=== PATIENT | female | born 1980 | race African-American/Black ===

== ENCOUNTER 2017-03-05 17:49 | Emergency (ER) | payer OTHER ==
[2017-03-05 18:00] VITALS: RESP 18
--- NOTE | 2017-03-05 18:42 | ED ---
Recheck HPI - General Chief Complaint: Recheck/Abnormal Lab/Rx Stated Complaint: Pain Time Seen by Provider: 03/05/17 18:23 Source: patient, RN notes reviewed Mode of arrival: ambulatory Limitations: no limitations - History of Present Illness Initial Comments: Patient is a 36-year-old female presents emergency room for evaluation of left- sided pain. Patient states on January 30 she woke up having pain on the left side of her neck and left side of her lower back radiating to her hip and left leg. Patient states that she tried to stay active and thought that would relieve her pain. Patient states over the past month she has been having worsening pain. Patient states coughing causes her to have pain. Patient states it causes her pain to get out of a chair or out of bed. Patient states the pain is worse with movement. Patient denies any recent falls or trauma. Patient denies recent changes in physical activity or heavy lifting. Patient denies taking any medications for her pain. Patient states she does not like taking any pills. Patient denies any numbness or tingling in her arms or legs. Patient denies weakness. Patient states pain feels like her left leg is in a vault that keeps tightening. Patient denies fecal or urinary incontinence. Patient denies saddle anesthesia. Patient denies trouble urinating, pain or burning during urination or blood in urine. Patient denies headache or dizziness. Patient states 4 out of 10 left-sided neck pain and 10 out of 10 left-sided low back and hip pain. - Related Data Previous Rx's Medication Instructions Recorded Naproxen [Naprosyn] 500 mg PO Q12HR PRN #20 tab 03/05/17 Allergies Allergy/AdvReac Type Severity Reaction Status Date / Time No Known Allergies Allergy Verified 03/05/17 18:20 Review of Systems ROS Statement: Those systems with pertinent positive or pertinent negative responses have been documented in the HPI. ROS Other: All systems not noted in ROS Statement are negative. Past Medical History Additional Past Medical History / Comment(s): anemia History of Any Multi-Drug Resistant Organisms: None Reported Past Surgical History: Section, Tubal Ligation Past Psychological History: No Psychological Hx Reported Smoking Status: Current every day smoker Past Alcohol Use History: Occasional Past Drug Use History: None Reported General Exam - General Exam Comments Initial Comments: Sitting in exam room, no distress. Limitations: no limitations General appearance: alert, in no apparent distress Head exam: Present: atraumatic, normocephalic, normal inspection Eye exam: Present: normal appearance ENT exam: Present: normal exam Neck exam: Present: normal inspection, full ROM. Absent: tenderness, lymphadenopathy Respiratory exam: Present: normal lung sounds bilaterally. Absent: respiratory distress Cardiovascular Exam: Present: regular rate, normal rhythm, normal heart sounds Back exam: Present: paraspinal tenderness, vertebral tenderness (Lumbosacral spine tenderness) Expanded Back exam: Positive Straight Leg Raise: Left, Negative Straight Leg Raising: Right Neurological exam: Present: alert, oriented X3, CN II-XII intact Psychiatric exam: Present: normal affect, normal mood Skin exam: Present: warm, dry, intact, normal color. Absent: rash Course Vital Signs 03/05/17 03/05/17 17:57 20:18 Temperature 98.4 F 97.5 F L Pulse Rate 89 80 Respiratory 18 18 Rate Blood Pressure 153/83 125/85 O2 Sat by Pulse 100 100 Oximetry Medical Decision Making - Medical Decision Making Patient is a 36-year-old female presents emergency room for evaluation of left- sided neck pain and low back pain. Patient did have a positive left straight leg raise on physical examination. X-ray showed no acute findings. Advised patient to follow-up with primary care provider for possible MRI to rule out disc herniation. Patient states she is not taking any pain medications at home. Will send patient home with Naprosyn. Patient has no neuro deficits. Patient states she understands everything that was discussed with her. Return parameters discussed. Case discussed with Dr. Kumar. - Radiology Data Radiology results: report reviewed, image reviewed Disposition Clinical Impression: Strain, lumbosacral, Back pain with left-sided radiculopathy, Strain of neck Disposition: HOME SELF-CARE Condition: Good Instructions: Lumbar Radiculopathy (ED), Acute Neck Pain (ED), Low Back Strain (ED) Additional Instructions: Alternate ice and heat. Take Naprosyn as directed. Please follow up with primary care provider for further evaluation. If any new symptom arises or symptoms worsen, return to ER as soon as possible. Prescriptions: Naproxen [Naprosyn] 500 mg PO Q12HR PRN #20 tab PRN Reason: Pain Referrals: Jordyn Wilde MD [REFERRING] - 1-2 days Time of Disposition: 20:04
--- NOTE | 2017-03-05 19:30 | XR ---
EXAMINATION TYPE: XR cervical spine comp DATE OF EXAM: 03/05/2017 7:04 PM COMPARISON: NONE HISTORY: Neck pain TECHNIQUE: 5 views FINDINGS: There is straightening of the vertebra. Neuroforamina are widely patent. There is anterior mild spurring at C5-6 C6-7. Atlantoaxial facet joint is normal. Posterior elements are intact. IMPRESSION: Mild spondylosis in the lower cervical spine. No fracture.
--- NOTE | 2017-03-05 19:31 | XR ---
EXAMINATION TYPE: XR lumbosacral spine min 4V DATE OF EXAM: 03/05/2017 7:04 PM COMPARISON: NONE HISTORY: Low back pain TECHNIQUE: 5 views FINDINGS: Lumbar vertebra have fairly normal spacing and alignment. Posterior elements are intact. Sa croiliac joints are normal. IMPRESSION: Negative lumbar spine exam.
[2017-03-05 20:21] VITALS: BP 125/85; PULSE 80; TEMP 97.5
== END 2017-03-05 20:19 | disposition home or self-care (01) ==
LOC: EC 17:49
DX: S16.1XXA Strain of muscle, fascia and tendon at neck level, initial encounter (principal); M54.16 Radiculopathy, lumbar region; M25.552 Pain in left hip; R05 Cough; F17.200 Nicotine dependence, unspecified, uncomplicated; X58.XXXA Exposure to other specified factors, initial encounter
CPT/HCPCS: 72050; 72110; 99283

== ENCOUNTER → 2017-03-26 | Outpatient (CLI) | payer OTHER ==
--- NOTE | 2017-03-26 17:58 | MR ---
EXAMINATION TYPE: MR lumbar spine wo con DATE OF EXAM: 03/26/2017 8:43 AM COMPARISON: NONE HISTORY: Back pain TECHNIQUE: T1 and T2 axial and sagittal images of the lumbar spine are submitted. FINDINGS: There is no abnormal signal seen within the visualized spinal cord or paraspinal soft tissu es. At L1-2 there is no disc herniation or canal stenosis. No foraminal encroachment. At L2-3 there is no disc herniation or canal stenosis. No foraminal encroachment At L3-4 there is there is left lateral disc bulging with mild left-sided foraminal encroachment. No c anal stenosis or spinal cord contact. At L4-5 there is no disc herniation or canal stenosis. There is mild right lateral disc bulging with mild right-sided foraminal encroachment. At L5-S1 there is no disc herniation or canal stenosis. No foraminal encroachment IMPRESSION: 1. Disc bulging L3-4 and L4-5 with no canal stenosis or discrete herniation. Foraminal encroachment a s discussed above. EXAMINATION TYPE: MR T-spine wo con DATE OF EXAM: 03/26/2017 8:43 AM COMPARISON: NONE HISTORY: Back pain Standard multiplanar, multisequence MRI departmental protocol Multiplanar, multisequence images of the thoracic spine were acquired. Diffusion weighted imaging was performed. FINDINGS: There is a 1 cm left thyroid nodule. Alignment is anatomic. Intervertebral disc space and signal maintained at all levels. There are no co mpression deformities. Neural foramina are patent at all levels. At T6-T7 there is minimal left paracentral disc bulging but no focal herniation, canal stenosis, fora nima encroachment or spinal cord contact. Spinal cord demonstrates a normal signal pattern with no abnormal signal. Many levels demonstrate no evidence of disc herniation, canal stenosis, or foraminal encroachment. IMPRESSION: 1. Very minimal left paracentral disc bulging T6-T7 with no evidence of canal stenosis or foraminal e ncroachment. 2. There is a 1 cm left thyroid nodule. 3. Incidental note is made of multilevel degenerative disc disease involving the mid and lower cervic al spine.
== END | disposition home or self-care (01) ==
LOC: RADMRIMAIN 07:44
PROVIDERS: ATTEND Nurse Practitioner Family
DX: M51.26 Other intervertebral disc displacement, lumbar region (principal); M51.24 Other intervertebral disc displacement, thoracic region
CPT/HCPCS: 72146; 72148

== ENCOUNTER → 2017-04-27 | Outpatient (CLI) | payer OTHER ==
[2017-04-27 13:53] VITALS: BP 137/81; PULSE 107; RESP 16; TEMP 98.5
--- NOTE | 2017-04-27 15:28 | P.CONS ---
History of Present Illness - Reason for Consult Consult date: 04/27/17 - History of Present Illness This is the initial consultation visit for this 36 years old female with history of severe low back pain with rotation to the left lower extremity started 01/30/2017 after she was moving furniture at her home, the pain is constant and increased with any activity associated with numbness and tingling sensation, and she feels that her left lower extremity weaker than the right side, she is able to walk, but any activity associated with increased pain, she denies any change in the bowel movement or urination she has no fever or night sweats . Intensity of the pain fluctuates between a 5/10 increased to 8 over 10 with activity Past Medical History Additional Past Medical History / Comment(s): anemia History of Any Multi-Drug Resistant Organisms: None Reported Past Surgical History: Section, Tubal Ligation Past Psychological History: No Psychological Hx Reported Smoking Status: Current every day smoker Past Alcohol Use History: Occasional Past Drug Use History: None Reported Medications and Allergies Home Medications Medication Instructions Recorded Confirmed Type Ferrous Sulfate [Feosol] 325 mg PO BID 04/27/17 04/27/17 History Gabapentin [Neurontin] 300 mg PO BID 04/27/17 04/27/17 History Meloxicam [Mobic] 1 tab PO DAILY 04/27/17 04/27/17 History traZODone HCL [TraZODone HCl] 1 tab PO DAILY 04/27/17 04/27/17 History Allergies Allergy/AdvReac Type Severity Reaction Status Date / Time No Known Allergies Allergy Verified 03/05/17 18:20 Physical Exam Vitals: Vital Signs Temp Pulse Resp BP Pulse Ox 04/27/17 13:40 98.5 F 107 H 16 137/81 97 Intake and Output 04/27/17 04/27/17 04/27/17 06:59 14:59 22:59 Other: Weight 83.915 kg Patient Weight 04/28/17 06:59 Weight 83.915 kg Social history : smoker ,+ ETOH , NO Illegal drugs use Review of Systems : 1- Constitutional : no chills , no fever , no night sweats , 2- Ears : no ear discharge , no change in hearing 3-Nose, Mouth ,Throat ; no bleeding gums, no sore throat , no epistaxis , 4-Cardiovascular : Denies chest pain, , no orthopnea , no palpitation 5-Respiratory : Denies cough , no dyspnea , no hemoptysis 6-Gastrointestinal :, no change in bowel habits , no coffee- ground emesis . 7-Genitourinary : No hematuria , no discharge , no incontinence, 8-Musculoskeletal : No gait dysfunction , report low back pain , 9- Neurological : no ataxia , no tremor , no sezure , 10-Psychatric , no suicidal ideation no hallucination 11- Endocrine : no cold intolerence , no polyuria , no polydypsia , 12-Hematologic : no easy bleeding , no easy brusing , 13-Allergic / immunology : no angioedema , no wheezing ,no allergic rhinitis 14-Integumentary : no brttle nails , no change hair / nails , no foot/leg ulcers . Physical Examinations : 1-Constitutional : Cooperative , not in acute distress . 2-HEENT : nech ; supple , no Lymphadenopathy , no Thyromegaly , :eyes , no icterus, no photophobia . ENT : , normal oropharynx , no Thrush 3- Respiratory : Chest clear to auscultations Bilaterally , no wheezing . 4- Cardiovascular : regular rate and rhythem , S1 , S2 , no S3 , no S4. 5- Gastrointestinal: abdomen soft no tenderness , no organomegally . 6- Genitourinary : Defferred . 7-Integumentary : No cellulitis , no ulcers , normal skin turgor , no cyanotic . 8- neurologic : Cranial nerve II to XII intact , no focal neurological deffecit 9-psychatric : alert , oriented X 3 , appropriate affect , intact judgment and insight . 10-Lymphatic : no Lymphadenopathy. 11- musculoskeltal: Antalgic gait Lumber spine moter stegnth lower extremities ,thigh and legs 5/5 Right side , 4/5 Left side deep tendon reflexes : normal Knee Jerk , normal ankle Jerk Negative lumber facet Loading Test Range of motion of the lumbar spine Flexion 30 degrees, extension 10 degrees strait leg raising test , positive at 30 degree left side , negative on the right side Fabere test negative RT and positive LT . Results Comments: MRI of the lumbar spine L3 4 and L4 5 bulging disc Assessment and Plan Plan: Assessment and plan=1 lumbar radiculopathy , lumbar bulging disc disease Patient could benefit from left-sided transforaminal epidural steroid injections at L3 4, and at left-sided L4 5 Also patient could benefit from Mobic 7.5 mg twice a day, and Neurontin 300 mg daily at bedtime increased gradually to twice a day Procedure risks and benefits and alternatives discussed with the patient and she agreed to proceed
== END | disposition home or self-care (01) ==
LOC: PNWHC3 13:08
PROVIDERS: ATTEND Specialist
DX: M51.16 Intervertebral disc disorders with radiculopathy, lumbar region (principal); Z79.899 Other long term (current) drug therapy; Z79.1 Long term (current) use of non-steroidal anti-inflammatories (NSAID)
CPT/HCPCS: 99211

== ENCOUNTER 2018-04-09 14:52 | Emergency (ER) | payer OTHER ==
[2018-04-09 15:30] VITALS: RESP 18
--- NOTE | 2018-04-09 16:32 | ED ---
General Adult HPI - General Chief complaint: Upper Respiratory Infection Stated complaint: Cough Time Seen by Provider: 04/09/18 16:18 Source: patient Mode of arrival: ambulatory Limitations: no limitations - History of Present Illness Initial comments: The patient is a 37-year-old female who presents with a chief complaint of cough and congestion. The patient is a pack per day smoker. He says that her cough has been going on for about a month. She cannot identify an inciting incident. There are no aggravating or alleviating factors. The patient does admit to shortness of breath and intermittent nausea. She denies chest pain. - Related Data Home Medications Medication Instructions Recorded Confirmed Ferrous Sulfate [Feosol] 325 mg PO BID 04/27/17 04/09/18 Bisacodyl [Dulcolax] 5 mg PO ONCE PRN 04/09/18 04/09/18 Multivitamins, Thera [Multivitamin 1 tab PO DAILY 04/09/18 04/09/18 (formulary)] Previous Rx's Medication Instructions Recorded Albuterol Inhaler [Ventolin Hfa 1 - 2 puff INHALATION RT-Q6H PRN 04/09/18 Inhaler] #1 inhaler Cetirizine HCl [Zyrtec] 10 mg PO DAILY #30 tab 04/09/18 Fluticasone Nasal [place] [Flonase 1 spray EA NOSTRIL DAILY #1 bottle 04/09/18 Nasal [place]] Allergies Allergy/AdvReac Type Severity Reaction Status Date / Time No Known Allergies Allergy Verified 04/09/18 16:35 Review of Systems ROS Statement: Those systems with pertinent positive or pertinent negative responses have been documented in the HPI. ROS Other: All systems not noted in ROS Statement are negative. ENT: Reports: congestion Respiratory: Reports: cough Past Medical History Past Medical History: No Reported History Additional Past Medical History / Comment(s): anemia History of Any Multi-Drug Resistant Organisms: None Reported Past Surgical History: Section, Tubal Ligation Additional Past Surgical History / Comment(s): uterine ablation Past Psychological History: No Psychological Hx Reported Smoking Status: Current every day smoker Past Alcohol Use History: Occasional Past Drug Use History: None Reported General Exam Limitations: no limitations General appearance: alert, in no apparent distress Head exam: Present: atraumatic, normocephalic Eye exam: Present: normal appearance ENT exam: Present: normal exam Neck exam: Present: normal inspection Respiratory exam: Present: normal lung sounds bilaterally. Absent: respiratory distress, wheezes Cardiovascular Exam: Present: regular rate, normal rhythm GI/Abdominal exam: Present: soft. Absent: distended, tenderness Rectal exam: Present: deferred Extremities exam: Present: normal inspection Back exam: Present: normal inspection Neurological exam: Present: alert, oriented X3 Psychiatric exam: Present: normal affect, normal mood Skin exam: Present: warm, dry, intact Course Vital Signs 04/09/18 15:28 Temperature 98.4 F Pulse Rate 95 Respiratory 18 Rate Blood Pressure 124/76 O2 Sat by Pulse 99 Oximetry Medical Decision Making - Medical Decision Making Patient is a 37-year-old female presents with a chief complaint of cough and congestion. On initial evaluation, vital signs are stable, patient is in no acute distress. Patient presents with erosive or family who have the same complaints. There is no fever present. This time given the duration and relatively benign nature of the presenting symptoms, I do not suspect infection but rather etiologies such as seasonal ALLERGIES. Given the patient is a smoker and is complaining of some nausea, she will be sent for a chest x-ray to rule out pneumonia. 5:10 PM X-ray evaluation is unremarkable. Patient stable for discharge. She was instructed to follow-up with primary care in 1-2 days, return to the emergency department if symptoms worsen or change. The patient was instructed to stop smoking. I counseled the patient about the harmful effects of smoking and secondhand smoke for her children. Disposition Clinical Impression: Sinusitis Disposition: HOME SELF-CARE Condition: Good Instructions: Sinusitis (ED), Allergies (ED) Prescriptions: Albuterol Inhaler [Ventolin Hfa Inhaler] 1 - 2 puff INHALATION RT-Q6H PRN #1 inhaler PRN Reason: Shortness Of Breath Cetirizine HCl [Zyrtec] 10 mg PO DAILY #30 tab Fluticasone Nasal [place] [Flonase Nasal [place]] 1 spray EA NOSTRIL DAILY #1 bottle Is patient prescribed a controlled substance at d/c from ED?: No Referrals: Suzanne Desouza MD [Primary Care Provider] - 1-2 days
--- NOTE | 2018-04-09 17:20 | XR ---
EXAMINATION TYPE: XR chest 2V DATE OF EXAM: 04/09/2018 COMPARISON: 10/26/2017 HISTORY: Cough and congestion TECHNIQUE: Frontal and lateral views of the chest are obtained. FINDINGS: Heart and mediastinum are normal. Lungs are clear. Diaphragm is normal. Bony thorax appear s normal. IMPRESSION: Normal chest. No change.
[2018-04-09 17:23] VITALS: BP 129/71; PULSE 81; TEMP 98
== END 2018-04-09 17:25 | disposition home or self-care (01) ==
LOC: EC 14:52
DX: J32.9 Chronic sinusitis, unspecified (principal); F17.200 Nicotine dependence, unspecified, uncomplicated; Z79.899 Other long term (current) drug therapy
CPT/HCPCS: 71046; 99283

== ENCOUNTER 2018-05-01 15:37 | Emergency (ER) | payer OTHER ==
[2018-05-01 16:14] VITALS: BP 122/74; TEMP 98.7
[2018-05-01] MEDS ORDERED: ALBUTEROL NEBULIZED 2.5 MG/3 ML INHALATION STA (16:45)
[2018-05-01] MEDS ORDERED: DEXAMETHASONE 4 MG TAB PO STA (16:45)
--- NOTE | 2018-05-01 17:09 | ED ---
General Adult HPI - General Chief complaint: Upper Respiratory Infection Stated complaint: headache/abd pain Source: patient Mode of arrival: ambulatory Limitations: no limitations - History of Present Illness Initial comments: History of present illness: 37-year-old [place] female with past medical history of chronic tobacco abuse presents with coughing 1 month. Patient denies any fever, chills or night sweats. She denies any chest pain symptoms. Patient states she's had these symptoms for approximately one month. Over the past 24 hours she reports worsening symptoms. Patient does report mild sputum production. She reports sore throat that is worsened with coughing. Denies any overt sick contacts. Patient denies any formal diagnosis of COPD. She has been a [id number] smoker. Past Medical History: Anemia Surgical History: , uterine ablation Social History: [id number] smoker, occasional EtOH Family history:[Reviewed, noncontributory] 14 point ROS was reviewed with patient and found to be negative - Related Data Home Medications Medication Instructions Recorded Confirmed Ferrous Sulfate [Feosol] 325 mg PO DAILY 04/27/17 05/01/18 Bisacodyl [Dulcolax] 5 mg PO ONCE PRN 04/09/18 05/01/18 Multivitamins, Thera [Multivitamin 1 tab PO DAILY 04/09/18 05/01/18 (formulary)] Cetirizine HCl [Zyrtec] 10 mg PO DAILY PRN 05/01/18 05/01/18 Ergocalciferol (Vitamin D2) 50,000 unit PO Q7D 05/01/18 05/01/18 [Vitamin D2] Fluticasone Nasal [place] [Flonase 1 spray EA NOSTRIL DAILY PRN 05/01/18 05/01/18 Nasal [place]] HYDROcodone/APAP 10-325MG [Purmela 1 tab PO QID PRN 05/01/18 05/01/18 10-325] Previous Rx's Medication Instructions Recorded Albuterol Inhaler [Ventolin Hfa 1 - 2 puff INHALATION RT-Q6H PRN 04/09/18 Inhaler] #1 inhaler Albuterol Inhaler [Ventolin Hfa 1 - 2 puff INHALATION RT-Q6H #1 05/01/18 Inhaler] inhaler Azithromycin [Zithromax Z-pack] 0 mg PO DIRECTED #6 tab 05/01/18 Dexamethasone [Decadron] 12 mg PO ONCE #2 tablet 05/01/18 Allergies Allergy/AdvReac Type Severity Reaction Status Date / Time No Known Allergies Allergy Verified 05/01/18 17:48 Review of Systems ROS Statement: Those systems with pertinent positive or pertinent negative responses have been documented in the HPI. ROS Other: All systems not noted in ROS Statement are negative. Past Medical History Past Medical History: No Reported History Additional Past Medical History / Comment(s): anemia History of Any Multi-Drug Resistant Organisms: None Reported Past Surgical History: Section, Tubal Ligation Additional Past Surgical History / Comment(s): uterine ablation Past Psychological History: No Psychological Hx Reported Smoking Status: Current every day smoker Past Alcohol Use History: Occasional Past Drug Use History: None Reported General Exam - General Exam Comments Initial Comments: Vital signs on arrival: Vital signs upon are within except limits Physical examination: General: Alert and oriented 4, no acute distress, coughing profusely HEENT: Normocephalic atraumatic, extraocular muscles intact, pupils equal round reactive to light and accommodation, oropharyngeal area does not show any tonsillar exudates or erythema Cardiovascular: Heart is regular rate and rhythm, no murmurs rubs or gallops Chest: Lungs clear to auscultation bilaterally, no tenderness to palpation of the chest wall Abdomen: Nontender, nondistended, normoactive bowel sounds Musculoskeletal: No peripheral edema, DP pulses and radial pulses 2+ bilaterally Neurologic: Cranial nerves II-12 intact, no focal neurologic deficits, no ataxia Skin: No rashes or lesions Limitations: no limitations Course Vital Signs 05/01/18 05/01/18 05/01/18 16:11 17:12 17:14 Temperature 98.7 F Pulse Rate 91 96 Respiratory 18 20 Rate Blood Pressure 122/74 O2 Sat by Pulse 99 Oximetry 05/01/18 05/01/18 17:35 17:50 Temperature Pulse Rate 100 100 Respiratory Rate Blood Pressure O2 Sat by Pulse Oximetry Medical Decision Making - Medical Decision Making ED course/medical decision-makin-year-old demented female presents with chief complaint of cough 1 month. Presentation consistent with bronchitis. Patient given corticosteroids, albuterol and Atrovent. 3 minutes of counseling for tobacco cessation was provided to patient. Patient reevaluated after breathing treatment and corticosteroids. She reports improvement of symptoms. Auscultation of the lungs shows no wheezing or any abnormal findings. Patient reports feeling much better. Clinically presentation consistent with chronic bronchitis. Patient given albuterol inhaler, Zithromax 5 day Dosepak and repeat corticosteroid be taken in 48-72 hours. Patient is understandable and agreeable. She is told to follow-up with her primary care physician upon discharge. Advised to return with any worsening symptoms. Final impression: 1. Bronchitis Plan: Albuterol inhaler, corticosteroids, Zithromax pack, follow up PCP Disposition: Discharged home Disposition Clinical Impression: Bronchitis Disposition: HOME SELF-CARE Additional Instructions: follow up PCP in 1 week. albuterol inhaler 1-2 puffs q4-6 hours for 3 days. repeat decadron in 48-72 hours. zithromax for 5 days Prescriptions: Albuterol Inhaler [Ventolin Hfa Inhaler] 1 - 2 puff INHALATION RT-Q6H #1 inhaler Azithromycin [Zithromax Z-pack] 0 mg PO DIRECTED #6 tab Dexamethasone [Decadron] 12 mg PO ONCE #2 tablet Is patient prescribed a controlled substance at d/c from ED?: No Referrals: Suzanne Desouza MD [Primary Care Provider] - 1-2 days Time of Disposition: 18:13
[2018-05-01 17:13] VITALS: RESP 20
--- NOTE | 2018-05-01 17:20 | XR ---
EXAMINATION TYPE: XR chest 2V DATE OF EXAM: 05/01/2018 COMPARISON: 04/09/2018 HISTORY: Cough and congestion TECHNIQUE: Frontal and lateral views of the chest are obtained. FINDINGS: Heart and mediastinum are normal. Lungs are clear. Diaphragm is normal. Bony thorax appear s normal. IMPRESSION: Normal chest. No change.
[2018-05-01 18:05] VITALS: PULSE 100
== END 2018-05-01 18:42 | disposition home or self-care (01) ==
LOC: EC 15:37
DX: J40 Bronchitis, not specified as acute or chronic (principal); D64.9 Anemia, unspecified; Z71.6 Tobacco abuse counseling; F17.210 Nicotine dependence, cigarettes, uncomplicated; Z79.899 Other long term (current) drug therapy
CPT/HCPCS: 99283; 99406; 94644; 71046; J8540

== ENCOUNTER → 2018-07-18 | Outpatient (CLI) | payer OTHER ==
--- NOTE | 2018-07-18 13:48 | MR ---
EXAMINATION TYPE: MR cervical spine wo con DATE OF EXAM: 07/18/2018 1:18 PM COMPARISON: NONE HISTORY: Neck pain Multiplanar MultiSpin echo imaging of the cervical spine was performed. C2-C3: No evidence for degenerative disc disease. No disc bulge/herniation or protrusion. No Canal stenosis. Foramina are patent bilaterally. C3-C4: No evidence for degenerative disc disease. No disc bulge/herniation or protrusion. No Canal stenosis. Foramina are patent bilaterally. C4-C5: There is mild disc desiccation. Posterocentral disc bulge without savannah herniation noted. Mini mal effacement ventral thecal sac. Foramina are patent bilaterally. C5-C6: There is mild disc desiccation. Posterocentral disc bulge without savannah herniation noted. Mini mal effacement ventral thecal sac. Foramina are patent bilaterally. C6-C7: There is mild disc desiccation. Posterocentral disc bulge without savannah herniation noted. Mini mal effacement ventral thecal sac. Foramina are patent bilaterally. C7-T1: No evidence for degenerative disc disease. No disc bulge/herniation or protrusion. No Canal stenosis. Foramina are patent bilaterally. Cervical segments are intact. There is normal alignment. Cervical spinal cord is of normal signal. Craniovertebral junction relationships are within normal limits. IMPRESSION: 1. Mild degenerative disc disease and disc bulging.
== END | disposition home or self-care (01) ==
LOC: RADMRIMAIN 12:11
DX: M50.121 Cervical disc disorder at C4-C5 level with radiculopathy (principal)
CPT/HCPCS: 72141

== ENCOUNTER 2019-07-20 04:06 | Emergency (ER) | payer OTHER ==
--- NOTE | 2019-07-20 04:54 | XR ---
EXAM: XR Left Toe(s), 2 or More Views CLINICAL HISTORY: ITS.REASON XR Reason: fall, pain TECHNIQUE: Frontal, lateral and oblique views of toe(s) of the left foot. COMPARISON: None. FINDINGS: Bones/joints: Intra-articular fracture of the base of the first distal phalanx. No dislocation. Soft tissues: Mild soft tissue swelling about the great toe. No radiopaque foreign body. IMPRESSION: Intra-articular fracture of the base of the first distal phalanx.
--- NOTE | 2019-07-20 05:12 | ED ---
Lower Extremity Injury HPI - General Chief Complaint: Extremity Injury, Lower Stated Complaint: Fall,toe injury Time Seen by Provider: 07/20/19 04:10 Source: patient, family Mode of arrival: wheelchair Limitations: no limitations - History of Present Illness Initial Comments: General he is a 38-year-old female presents the emergency department today for evaluation of left great toe pain. Patient reports that she was in her backyard when she tripped over the chain that they use to keep their dog restrained. Patient reports she immediately felt pain in her left toe she thought it would go away however has persisted which prompted her come to the ER for evaluation. Patient denies other injuries. - Related Data Home Medications Medication Instructions Recorded Confirmed Ferrous Sulfate [Feosol] 325 mg PO DAILY 04/27/17 05/01/18 Bisacodyl [Dulcolax] 5 mg PO ONCE PRN 04/09/18 05/01/18 Multivitamins, Thera [Multivitamin 1 tab PO DAILY 04/09/18 05/01/18 (formulary)] Cetirizine HCl [Zyrtec] 10 mg PO DAILY PRN 05/01/18 05/01/18 Ergocalciferol (Vitamin D2) 50,000 unit PO Q7D 05/01/18 05/01/18 [Vitamin D2] Fluticasone Nasal [place] [Flonase 1 spray EA NOSTRIL DAILY PRN 05/01/18 05/01/18 Nasal [place]] HYDROcodone/APAP 10-325MG [[place] 1 tab PO QID PRN 05/01/18 05/01/18 10-325] Previous Rx's Medication Instructions Recorded Albuterol Inhaler [Ventolin Hfa 1 - 2 puff INHALATION RT-Q6H PRN 04/09/18 Inhaler] #1 inhaler Albuterol Inhaler [Ventolin Hfa 1 - 2 puff INHALATION RT-Q6H #1 05/01/18 Inhaler] inhaler Azithromycin [Zithromax Z-pack] 0 mg PO DIRECTED #6 tab 05/01/18 Dexamethasone [Decadron] 12 mg PO ONCE #2 tablet 05/01/18 Allergies Allergy/AdvReac Type Severity Reaction Status Date / Time No Known Allergies Allergy Verified 07/20/19 04:16 Review of Systems ROS Statement: Those systems with pertinent positive or pertinent negative responses have been documented in the HPI. ROS Other: All systems not noted in ROS Statement are negative. Past Medical History Past Medical History: No Reported History Additional Past Medical History / Comment(s): anemia History of Any Multi-Drug Resistant Organisms: None Reported Past Surgical History: Section, Tubal Ligation Additional Past Surgical History / Comment(s): uterine ablation Past Psychological History: No Psychological Hx Reported Smoking Status: Current every day smoker Past Alcohol Use History: Occasional Past Drug Use History: None Reported General Exam - General Exam Comments Initial Comments: Physical Exam GENERAL: Patient is well-developed and well-nourished. Patient is nontoxic and well- hydrated and is in no distress. HENT: Normocephalic, Atraumatic. EYES: PERRL, EOMI PULMONARY: Unlabored respirations. CARDIOVASCULAR: RRR Warm well perfused extremities ABDOMEN: Nondistended SKIN: Skin is clear with no lesions or rashes and otherwise unremarkable. : Deferred NEUROLOGIC: Patient is alert and oriented x3. Moving all extremities spontaneously MUSCULOSKELETAL: Swelling and decreased range of motion of left great toe PSYCHIATRIC: Normal psychiatric evaluation. Limitations: no limitations Course Vital Signs 07/20/19 04:11 Temperature 97.8 F Pulse Rate 91 Respiratory 20 Rate Blood Pressure 109/69 O2 Sat by Pulse 100 Oximetry Medical Decision Making - Medical Decision Making The patient was seen and evaluated x-ray was obtained x-ray confirms an intra- articular fracture of the great toe patient will be placed in a walking boot and advised to follow-up with orthopedics for management Disposition Clinical Impression: Fracture of toe Disposition: HOME SELF-CARE Condition: Stable Instructions (If sedation given, give patient instructions): Toe Fracture (ED) Is patient prescribed a controlled substance at d/c from ED?: No Referrals: Suzanne Desouza MD [Primary Care Provider] - 1-2 days Mati Mendez MD [STAFF PHYSICIAN] - 1-2 days
[2019-07-20 05:53] VITALS: BP 110/78; PULSE 90; RESP 18; TEMP 97.4
== END 2019-07-20 05:53 | disposition home or self-care (01) ==
LOC: EC 04:06
DX: S92.422A Displaced fracture of distal phalanx of left great toe, initial encounter for closed fracture (principal); D64.9 Anemia, unspecified; F17.200 Nicotine dependence, unspecified, uncomplicated; Z79.899 Other long term (current) drug therapy; W01.0XXA Fall on same level from slipping, tripping and stumbling without subsequent striking against object, initial encounter; Y93.89 Activity, other specified; Y92.096 Garden or yard of other non-institutional residence as the place of occurrence of the external cause
CPT/HCPCS: 99283

== ENCOUNTER 2019-09-16 15:17 | Emergency (ER) | payer OTHER ==
[2019-09-16] MEDS ORDERED: DIAZEPAM 5 MG/ML 2 ML INJ IVP STA (15:47)
[2019-09-16] MEDS ORDERED: KETOROLAC 30 MG/ML 1 ML VIAL IVP STA (17:04)
[2019-09-16] MEDS ORDERED: LIDOCAINE 5% PATCH TOPICAL STA (17:04)
--- NOTE | 2019-09-16 17:14 | CT ---
EXAMINATION TYPE: CT lumbar spine wo con DATE OF EXAM: 09/16/2019 COMPARISON: None HISTORY: 38-year-old female with Back pain TECHNIQUE: Contiguous axial scanning of the lumbar spine without IV contrast. Coronal and sagittal re constructions performed. CT DLP: 1223 mGycm Automated exposure control for dose reduction was used. FINDINGS: Mildly displaced fracture of the right posterior 11th rib. Straightening of the normal lumbar lordosis. Mild bulging disks throughout. No large focal disc herni ation or evident canal compromise. No acute fracture of the lumbar spine. Vertebral body heights are preserved. No significant neural foraminal stenosis identified. No prevertebral paravertebral soft tissue abnormality. IMPRESSION: 1. MILDLY DISPLACED FRACTURE OF THE RIGHT POSTERIOR 11TH RIB INCIDENTALLY NOTED. 2. NO VERTEBRAL COMPRESSION COLLAPSE OR MALALIGNMENT WITHIN THE LUMBAR SPINE. 3. MILD BULGING DISKS AT MULTIPLE LEVELS WITHOUT LARGE FOCAL DISC HERNIATION OR CANAL COMPROMISE.
[2019-09-16] MEDS ORDERED: ACET/COD 300 MG/30 MG STARTER PACK 6 TAB BTL PO STA (18:52)
--- NOTE | 2019-09-16 18:52 | ED ---
Back Pain HPI - General Chief Complaint: Back Pain/Injury Stated Complaint: BACK PAIN Time Seen by Provider: 09/16/19 15:34 Source: patient, EMS Limitations: no limitations - History of Present Illness Initial Comments: Patient 38-year-old female with history of a herniated disc is presenting to emergency Department with a chief complaint of back pain. Patient reports a pain located in the lumbosacral region radiating along the posterior aspect of her right leg to the popliteal region. Patient also reports the pain has been on and off for about 4 days but today she coughed/sneezed and felt a pop in the right paraspinal region. Patient reports the pain is 10 / 10, throbbing and constant. Patient reports the pain is exacerbated with full deep breaths. Patient denies taking medications to alleviate the symptoms .patient denies saddle paresthesia, urinary bowel incontinence. - Related Data Home Medications Medication Instructions Recorded Confirmed Multivitamins, Thera [Multivitamin 1 tab PO DAILY 04/09/18 09/16/19 (formulary)] Cholecalciferol [Vitamin D3 (25 1,000 unit PO DAILY 09/16/19 09/16/19 Mcg = 1000 Iu)] Docusate [Colace] 100 mg PO DAILY 09/16/19 09/16/19 Loratadine 10 mg PO DAILY 09/16/19 09/16/19 Previous Rx's Medication Instructions Recorded Albuterol Inhaler [Ventolin Hfa 1 - 2 puff INHALATION RT-Q6H PRN 04/09/18 Inhaler] #1 inhaler Allergies Allergy/AdvReac Type Severity Reaction Status Date / Time No Known Allergies Allergy Verified 09/16/19 16:12 Review of Systems ROS Statement: Those systems with pertinent positive or pertinent negative responses have been documented in the HPI. ROS Other: All systems not noted in ROS Statement are negative. Past Medical History Past Medical History: No Reported History Additional Past Medical History / Comment(s): anemia, "bulging disc in lower back" History of Any Multi-Drug Resistant Organisms: None Reported Past Surgical History: Section, Tubal Ligation Additional Past Surgical History / Comment(s): uterine ablation Past Psychological History: No Psychological Hx Reported Smoking Status: Current every day smoker Past Alcohol Use History: Occasional Past Drug Use History: None Reported General Exam Limitations: no limitations General appearance: alert, in no apparent distress, in distress Head exam: Present: atraumatic, normocephalic, normal inspection Eye exam: Present: normal appearance Pupils: Present: normal accommodation ENT exam: Present: normal exam, mucous membranes moist, normal external ear exam Neck exam: Present: normal inspection, full ROM Respiratory exam: Present: normal lung sounds bilaterally Cardiovascular Exam: Present: regular rate, normal rhythm, normal heart sounds Extremities exam: Present: normal inspection, full ROM Back exam: Present: normal inspection, tenderness (Tenderness along the right paraspinal region), paraspinal tenderness, other (Positive leg raise test on the right leg.). Absent: full ROM, CVA tenderness (R), CVA tenderness (L), muscle spasm, vertebral tenderness Neurological exam: Present: alert, oriented X3 Psychiatric exam: Present: normal affect, normal mood Skin exam: Present: warm, intact, normal color Course Vital Signs 09/16/19 15:20 Temperature 98.3 F Pulse Rate 94 Respiratory 19 Rate Blood Pressure 140/79 O2 Sat by Pulse 99 Oximetry Medical Decision Making - Medical Decision Making Patient is a 38-year-old female with a history of a herniated disc is presenting to the emergency department with the chief complaint of back pain. Based on physical examination patient appears to have sciatica and low back symptoms. Patient was given 5 mg of IV morphine via EMS. Patient was given a Lidoderm patch in the right paraspinal region, Toradol and Valium. On reevaluation patient reports improvement in symptoms. Patient reports the pain continues to be exacerbated with full inspiration. CT of the lumbar region is indicative of a displaced 11th rib fracture. Patient advised to alternate between Tylenol and ibuprofen for pain control. Patient will be given an incentive spirometer. Patient will be given a Tylenol 3 starter pack. Patient advised about the possible side effects of medication. Strict return parameters were thoroughly discussed the patient is understanding and agreeable. Case discussed physician. Disposition Clinical Impression: Closed rib fracture Disposition: HOME SELF-CARE Condition: Stable Instructions (If sedation given, give patient instructions): Acute Low Back Pain (ED), Rib Fracture (ED) Additional Instructions: Please take prescribed medication as directed. Please follow up with primary care. Please return to emergency department if symptoms worsen. Is patient prescribed a controlled substance at d/c from ED?: No Referrals: Suzanne Desouza MD [Primary Care Provider] - 1-2 days Time of Disposition: 18:51
[2019-09-16 19:47] VITALS: BP 117/75; PULSE 87; RESP 18; TEMP 99.1
== END 2019-09-16 19:47 | disposition home or self-care (01) ==
LOC: EC 15:17
DX: S22.31XA Fracture of one rib, right side, initial encounter for closed fracture (principal); F17.200 Nicotine dependence, unspecified, uncomplicated; Z79.899 Other long term (current) drug therapy
CPT/HCPCS: 72131; 99284; 96374; 96375; J3360; J1885

== ENCOUNTER → 2019-10-30 | Outpatient (CLI) | payer OTHER ==
--- NOTE | 2019-10-31 00:32 | MR ---
EXAMINATION TYPE: MR brain wo con DATE OF EXAM: 10/30/2019 COMPARISON: None HISTORY: Dizziness, fall, seizure Ventricles have normal size. There is no mass effect nor midline shift. There is no sign of intracran ial hemorrhage. There is no evidence of cerebral edema. Diffusion images show no evidence of a cortical infarct. Corpus callosum appears normal. Sella turcic a appears normal. Brainstem is intact. There is mild ethmoid sinus mucosal thickening. The cerebellum appears normal. IMPRESSION: Negative MR scan of the brain. Minimal sinusitis.
== END | disposition home or self-care (01) ==
LOC: RADMRIMAIN 16:19
PROVIDERS: ATTEND Nurse Practitioner Family
DX: R29.898 Other symptoms and signs involving the musculoskeletal system (principal); Z87.898 Personal history of other specified conditions
CPT/HCPCS: 70551

== ENCOUNTER → 2020-01-23 | Outpatient (CLI) | payer OTHER ==
--- NOTE | 2020-01-23 11:17 | MR ---
EXAMINATION TYPE: MR cervical spine wo con DATE OF EXAM: 01/23/2020 COMPARISON: 06/21/2018 HISTORY: Cervical radiculopathy TECHNIQUE: Multiplanar, multisequence images of the cervical spine were acquired. C2-C3: No evidence for degenerative disc disease. No disc bulge/herniation or protrusion. No Canal st enosis. Foramina are patent bilaterally. C3-C4: No evidence for degenerative disc disease. No disc bulge/herniation or protrusion. No Canal st enosis. Foramina are patent bilaterally. C4-C5: There is mild disc desiccation. Posterocentral disc bulge without savannah herniation noted. [place] tear suggested. Minimal effacement ventral thecal sac. Foramina are patent bilaterally. There is uncovertebral joint hypertrophy. C5-C6: There is mild disc desiccation. Posterocentral disc bulge without savannah herniation noted. Mini mal effacement ventral thecal sac. Foramina are patent bilaterally. Posterior spondylosis and uncover tebral joint hypertrophy stable. C6-C7: There is mild disc desiccation. Posterocentral disc bulge without savannah herniation noted. Mini mal effacement ventral thecal sac. Foramina are patent bilaterally. Posterior spondylosis and uncover tebral joint hypertrophy is stable. C7-T1: No evidence for degenerative disc disease. No disc bulge/herniation or protrusion. No Canal st enosis. Foramina are patent bilaterally. Cervical segments are intact. There is normal alignment. Cervical spinal cord is of normal signal. Cr aniovertebral junction relationships are within normal limits. Multinodular left-sided thyroid change s noted. Sagittal view demonstrates changes sinusitis and sphenoid sinus posteriorly. IMPRESSION: 1. Multilevel moderate degenerative disc disease severe changes C6-C7 with discogenic marrow changes appear similar to the prior exam. 2. Broad-based central disc bulging or protrusion C4-5, C5-6 and C6-C7 hypertrophic changes of the un covertebral joints are stable compared to the prior exam. Mild effacement of thecal sac with no spina l cord contact. 3. There are multiple left-sided thyroid nodules. Correlate with ultrasound as clinically warranted.
--- NOTE | 2020-01-23 11:54 | MR ---
EXAMINATION TYPE: MR brain w con DATE OF EXAM: 01/23/2020 COMPARISON: None HISTORY: Unspecified convulsions seizures TECHNIQUE: Multiplanar, multisequence images of the brain and brainstem is performed without and with IV contras t, utilizing 8.5 mL intravenous Gadavist . FINDINGS: Diffusion weighted images demonstrate no evidence of a recent infarct or other diffusion ab normality. There is no extra-axial fluid collection or significant white matter signal abnormality. The ventricular system and cisternal spaces are normal in size and appearance. The brain volume is age appropriate. Midline structures demonstrate normal morphology. Cerebellar tonsils are slightly low-lying in positi on at the level of the foramen magnum. Post contrast images demonstrate no abnormal enhancement. The dural venous sinuses appear patent. Changes of chronic sinusitis and left mastoiditis.. IMPRESSION: 1. Changes of moderate chronic sinusitis and mild left mastoiditis 2. No enhancing mass or evidence of acute ischemia. 3. Cerebellar tonsils slightly low-lying in position at the level the foramen magnum.
== END | disposition home or self-care (01) ==
LOC: RADMRIMAIN 09:19
PROVIDERS: ATTEND Neurological Surgery
DX: R93.0 Abnormal findings on diagnostic imaging of skull and head, not elsewhere classified (principal); R56.9 Unspecified convulsions; M50.121 Cervical disc disorder at C4-C5 level with radiculopathy
CPT/HCPCS: 70552; 72141; A9585

== ENCOUNTER → 2020-04-28 | Outpatient (CLI) | payer OTHER ==
--- NOTE | 2020-04-29 08:23 | CT ---
EXAMINATION TYPE: CT abdomen pelvis wo/w con DATE OF EXAM: 04/28/2020 COMPARISON: NONE HISTORY: 39-year-old female generalized abdominal pain, nausea, constipation, bloating TECHNIQUE: Contiguous axial scanning of the abdomen and pelvis before and after administration of 100 ml Isovue 300 IV contrast. Delayed images through the kidneys and coronal/sagittal reconstructions performed. CT DLP: 2018 mGycm Automated exposure control for dose reduction was used. FINDINGS: LUNG BASES: No significant abnormality is appreciated. LIVER/GB: Liver enlarged measuring 19.4 cm. Diffuse low attenuation of the hepatic parenchyma. Large areas of geographic low attenuation suggestive anterior mid liver and joanna hepatis. Scattered subcen timeter hypodensities also present within the liver, for example, posterior right liver lobe axial im age 15 measuring 1 cm, too small for accurate CT characterization, probable cysts. Portal venous syst em is patent. No biliary ductal dilatation. PANCREAS: No significant abnormality is seen. SPLEEN: No significant abnormality is seen. ADRENALS: No significant abnormality is seen. KIDNEYS: No significant abnormality is seen. LYMPH NODES: No mesenteric or retroperitoneal lymphadenopathy. BOWEL: No dilated small bowel, free fluid, or free air. Small fatty milk or hernia. No significant s tool burden. Moderate circumferential wall thickening diffusely throughout the colon. Portions of the right hemicolon shows submucosal fat deposition suggesting bouts of prior inflammation. PELVIS: Uterus anteverted. 1.8 cm dominant follicle or functional cyst within the left ovary along wi th additional follicular change. Right ovary is visualized. No abnormal fluid collection in the pelvi s. Moderate circumferential bladder wall thickening. No pelvic lymphadenopathy. BONES: Mild degenerative spurring left SI joint. No osseous destructive process. IMPRESSION: 1. MODERATE CIRCUMFERENTIAL PANCOLONIC WALL THICKENING. CORRELATE FOR INFECTIOUS OR INFLAMMATORY COLI TIS INCLUDING THE POSSIBILITY OF ULCERATIVE COLITIS. 2. HEPATOMEGALY (19.4 CM) WITH MARKED HEPATIC STEATOSIS AND MORE SEVERE GEOGRAPHIC AREAS OF FATTY INF ILTRATION. 3. MODERATE CIRCUMFERENTIAL BLADDER WALL THICKENING. CORRELATE TO EXCLUDE CYSTITIS.
== END | disposition home or self-care (01) ==
LOC: RADCTMAIN 14:54
PROVIDERS: ATTEND Internal Medicine Gastroenterology
DX: K63.89 Other specified diseases of intestine (principal); K76.0 Fatty (change of) liver, not elsewhere classified; R16.0 Hepatomegaly, not elsewhere classified; N32.89 Other specified disorders of bladder
CPT/HCPCS: 74178; Q9967

== ENCOUNTER 2020-06-30 17:06 | Emergency (ER) | payer OTHER ==
[2020-06-30 17:12] VITALS: BP 131/86; PULSE 109; RESP 16; TEMP 98.8
[2020-06-30] MEDS ORDERED: cefTRIAXone 1,000 MG VIAL (IM USE) IM STA (17:49)
[2020-06-30] MEDS ORDERED: MORPHINE SULFATE 4 MG/ML SYRINGE IM STA (17:49)
--- NOTE | 2020-06-30 18:15 | ED ---
Lower Extremity Injury HPI - General Chief Complaint: Extremity Injury, Lower Stated Complaint: leg pain & boil Time Seen by Provider: 06/30/20 17:26 Source: patient, RN notes reviewed, old records reviewed Mode of arrival: wheelchair Limitations: no limitations - History of Present Illness Initial Comments: Laverne is a 39 year old female presents to ED for complaints of chronic bilateral leg pain for 3 months that is being evaluated by neurology and had recent EMG study on Sunday. She states that it feels like she is always walking on gravel on her feet and this hs been for 3 months. She states she does not take anything for pain currently. PAtient also complains of boil in her left inner thigh that has been present for 5 days and is now open and draining. She is non diabetic. She denies fevers. - Related Data Home Medications Medication Instructions Recorded Confirmed Multivitamins, Thera [Multivitamin 1 tab PO DAILY 04/09/18 09/16/19 (formulary)] Cholecalciferol [Vitamin D3 (25 1,000 unit PO DAILY 09/16/19 09/16/19 Mcg = 1000 Iu)] Docusate [Colace] 100 mg PO DAILY 09/16/19 09/16/19 Loratadine 10 mg PO DAILY 09/16/19 09/16/19 Previous Rx's Medication Instructions Recorded Albuterol Inhaler (Mhu) [Ventolin 1 - 2 puff INHALATION RT-Q6H PRN 04/09/18 Hfa Inhaler (Mhu)] #1 inhaler Acetaminophen-Codeine 300-30mg 1 tab PO Q4H PRN 3 Days #18 tablet 06/30/20 [Tylenol w/codeine #3] Sulfamethox-Tmp 800-160Mg [Bactrim 4 tab PO Q12HR #40 tab 06/30/20 DS 800-160 mg] Allergies Allergy/AdvReac Type Severity Reaction Status Date / Time No Known Allergies Allergy Verified 06/30/20 17:08 Review of Systems ROS Statement: Those systems with pertinent positive or pertinent negative responses have been documented in the HPI. ROS Other: All systems not noted in ROS Statement are negative. Past Medical History Past Medical History: No Reported History Additional Past Medical History / Comment(s): anemia, "bulging disc in lower back" History of Any Multi-Drug Resistant Organisms: None Reported Past Surgical History: Section, Tubal Ligation Additional Past Surgical History / Comment(s): uterine ablation Past Psychological History: No Psychological Hx Reported Smoking Status: Current every day smoker Past Alcohol Use History: Occasional Past Drug Use History: None Reported General Exam - General Exam Comments Initial Comments: 39 year old female, no acute distress. Limitations: no limitations General appearance: alert, in no apparent distress Head exam: Present: atraumatic, normocephalic, normal inspection Eye exam: Present: normal appearance, PERRL, EOMI. Absent: scleral icterus, conjunctival injection, periorbital swelling ENT exam: Present: normal exam, mucous membranes moist Neck exam: Present: normal inspection. Absent: tenderness, meningismus, lymphadenopathy Respiratory exam: Present: normal lung sounds bilaterally. Absent: respiratory distress, wheezes, rales, rhonchi, stridor Cardiovascular Exam: Present: regular rate, normal rhythm, normal heart sounds. Absent: systolic murmur, diastolic murmur, rubs, gallop, clicks GI/Abdominal exam: Present: soft, normal bowel sounds. Absent: distended, tenderness, guarding, rebound, rigid Extremities exam: Present: normal inspection, full ROM, normal capillary refill, other (normal dorsalis pedis and posterior tibial pulse, 2 plus. Normal ROM of ankles and toes. No deformity. ). Absent: tenderness, pedal edema, joint swelling, calf tenderness Back exam: Present: normal inspection Neurological exam: Present: alert (Pt has open and draining abscess from L groin andinguinal region with purulent drainage, area is open 1cm and surrounding firmness is 4cm. ), oriented X3, CN II-XII intact Psychiatric exam: Present: normal affect, normal mood Skin exam: Present: other Course Vital Signs 06/30/20 17:09 Temperature 98.8 F Pulse Rate 109 H Respiratory 16 Rate Blood Pressure 131/86 O2 Sat by Pulse 99 Oximetry Medical Decision Making - Medical Decision Making 39 year old female presents with L groin abscess for one week and chronic bilateral leg pain for 3 months. She is being evaluted by neurology for neuropathy and has normal pulses and no signs of ischemia on legs today. She has a draining 3cm abscess in L inguinal groin area, she has had these before. Since it is already open and has drainaed 5-10 cc of fluid, culture completed. Discussed needing to do baths and warm compresses. Will start pt on antibiotics and received rocephin and pain med IM before discharge. Discussed return parameters. Disposition Clinical Impression: Chronic leg pain, Abscess of left thigh Disposition: HOME SELF-CARE Condition: Good Instructions (If sedation given, give patient instructions): Peripheral Neuropathy (ED), Abscess (ED) Additional Instructions: Patient advised to apply warm compresses over the area of abscess. Allow the area to continue to drain and send a warm bathtub. The take the entire prescription of antibiotics. Follow-up with primary care doctor or return to emergency department if any alarming signs or symptoms occur. Prescriptions: Sulfamethox-Tmp 800-160Mg [Bactrim DS 800-160 mg] 4 tab PO Q12HR #40 tab Acetaminophen-Codeine 300-30mg [Tylenol w/codeine #3] 1 tab PO Q4H PRN 3 Days #18 tablet PRN Reason: Pain Is patient prescribed a controlled substance at d/c from ED?: Yes If prescribed controlled substance>3 days was MAPS reviewed?: Prescribed <3 Days If opioid is for acute pain is fill amount 7 days or less?: Yes If Rx opioid, was Start Talking consent form obtained?: Yes Referrals: Suzanne Desouza MD [Primary Care Provider] - 1-2 days Time of Disposition: 18:11
== END 2020-06-30 18:33 | disposition home or self-care (01) ==
LOC: EC 17:06
DX: L02.416 Cutaneous abscess of left lower limb (principal); G89.29 Other chronic pain; M79.605 Pain in left leg; M79.604 Pain in right leg; G62.9 Polyneuropathy, unspecified; F17.200 Nicotine dependence, unspecified, uncomplicated
CPT/HCPCS: 87070; 87205; 96372 ×2; 99284; J2270; J0696

== ENCOUNTER 2020-07-16 04:44 | Emergency (ER) | payer OTHER ==
--- NOTE | 2020-07-16 04:55 | ED ---
Recheck HPI - General Chief Complaint: Extremity Injury, Lower Stated Complaint: Leg numbness and pain Time Seen by Provider: 07/16/20 04:55 Source: patient, family, RN notes reviewed, old records reviewed Mode of arrival: ambulatory Limitations: no limitations - History of Present Illness MD Complaint: other (high BP) -: days(s) Returns Today for: other (anxiety and High BP) Symptoms Since Prior Visit: no new symptoms Associated Symptoms: none - Related Data Home Medications Medication Instructions Recorded Confirmed Multivitamins, Thera [Multivitamin 1 tab PO DAILY 04/09/18 09/16/19 (formulary)] Cholecalciferol [Vitamin D3 (25 1,000 unit PO DAILY 09/16/19 09/16/19 Mcg = 1000 Iu)] Docusate [Colace] 100 mg PO DAILY 09/16/19 09/16/19 Loratadine 10 mg PO DAILY 09/16/19 09/16/19 Previous Rx's Medication Instructions Recorded Albuterol Inhaler (Mhu) [Ventolin 1 - 2 puff INHALATION RT-Q6H PRN 04/09/18 Hfa Inhaler (Mhu)] #1 inhaler Acetaminophen-Codeine 300-30mg 1 tab PO Q4H PRN 3 Days #18 tablet 06/30/20 [Tylenol w/codeine #3] Sulfamethox-Tmp 800-160Mg [Bactrim 4 tab PO Q12HR #40 tab 06/30/20 DS 800-160 mg] Gabapentin [Neurontin] 300 mg PO TID #90 cap 07/16/20 Allergies Allergy/AdvReac Type Severity Reaction Status Date / Time No Known Allergies Allergy Verified 07/16/20 04:50 Review of Systems ROS Statement: Those systems with pertinent positive or pertinent negative responses have been documented in the HPI. ROS Other: All systems not noted in ROS Statement are negative. Past Medical History Past Medical History: No Reported History Additional Past Medical History / Comment(s): anemia, "bulging disc in lower back", neuropathy History of Any Multi-Drug Resistant Organisms: None Reported Past Surgical History: Section, Orthopedic Surgery, Tubal Ligation Additional Past Surgical History / Comment(s): uterine ablation Past Psychological History: Anxiety Smoking Status: Current every day smoker Past Alcohol Use History: Occasional Past Drug Use History: None Reported General Exam Limitations: no limitations General appearance: alert, in no apparent distress, anxious Head exam: Present: atraumatic, normocephalic, normal inspection Eye exam: Present: normal appearance, PERRL, EOMI. Absent: scleral icterus, conjunctival injection, periorbital swelling ENT exam: Present: normal exam, mucous membranes moist Neck exam: Present: normal inspection. Absent: tenderness, meningismus, lymphadenopathy Respiratory exam: Present: normal lung sounds bilaterally. Absent: respiratory distress, wheezes, rales, rhonchi, stridor Cardiovascular Exam: Present: normal rhythm, tachycardia, normal heart sounds. Absent: systolic murmur, diastolic murmur, rubs, gallop, clicks GI/Abdominal exam: Present: soft, normal bowel sounds. Absent: distended, tenderness, guarding, rebound, rigid Extremities exam: Present: normal inspection, full ROM, normal capillary refill. Absent: tenderness, pedal edema, joint swelling, calf tenderness Back exam: Present: normal inspection Neurological exam: Present: alert, oriented X3, CN II-XII intact Psychiatric exam: Present: normal affect, normal mood Skin exam: Present: warm, dry, intact, normal color. Absent: rash Course Vital Signs 07/16/20 04:45 Temperature 98.2 F Pulse Rate 112 H Respiratory 20 Rate Blood Pressure 114/72 O2 Sat by Pulse 100 Oximetry - Reevaluation(s) Reevaluation #1: 07/16/20 06:23 Medical records reviewed 07/16/20 06:[address] scans are reviewed Reevaluation #2: 07/16/20 06:23 Patient reevaluated with pain control Reevaluation #3: 07/16/20 06:23 Patient spoken with regarding findings, results and questions are answered Reevaluation #4: 07/16/20 06:23 Patient admits to severe back pain history of lumbar disc disease Medical Decision Making - Medical Decision Making 39 female with significant bilateral lower extremity paresthesias and neuropathy. Pain is controlled and patient can be discharged home Disposition Clinical Impression: Peripheral neuropathy, Chronic leg pain, Neuropathic pain, leg, bilateral Disposition: HOME SELF-CARE Condition: Good Instructions (If sedation given, give patient instructions): Peripheral Neuropathy (ED) Prescriptions: Gabapentin [Neurontin] 300 mg PO TID #90 cap Is patient prescribed a controlled substance at d/c from ED?: No Referrals: Suzanne Desouza MD [Primary Care Provider] - 1-2 days
[2020-07-16] MEDS ORDERED: dexAMETHasone 4 MG TAB PO STA (05:06)
[2020-07-16] MEDS ORDERED: Acetaminophen-Codeine 300-30mg TAB PO STA (05:06)
[2020-07-16] MEDS ORDERED: GABAPENTIN 300 MG CAP PO STA (05:06)
[2020-07-16] MEDS ORDERED: KETOROLAC 15 MG/ML 1 ML VIAL IM STA (05:06)
[2020-07-16] MEDS ORDERED: ACET/COD 300 MG/30 MG STARTER PACK 6 TAB BTL PO STA (05:06)
[2020-07-16] MEDS ORDERED: HYDROmorphone 1 MG/ML 1 ML SYRINGE IM STA (05:44)
[2020-07-16] MEDS ORDERED: LIDOCAINE 5% PATCH TOPICAL STA (06:02)
[2020-07-16 06:38] VITALS: BP 128/72; PULSE 96; RESP 18; TEMP 98.7
== END 2020-07-16 06:11 | disposition home or self-care (01) ==
LOC: EC 04:44
DX: G62.9 Polyneuropathy, unspecified (principal); G89.29 Other chronic pain; M79.606 Pain in leg, unspecified; G57.93 Unspecified mononeuropathy of bilateral lower limbs; F17.200 Nicotine dependence, unspecified, uncomplicated
CPT/HCPCS: 99284; 96372 ×2; J8540; J1170; J1885

== ENCOUNTER → 2021-02-14 | Outpatient (CLI) | payer OTHER ==
--- NOTE | 2021-02-14 23:01 | MR ---
EXAMINATION TYPE: MR shoulder RT wo con DATE OF EXAM: 02/14/2021 COMPARISON: Right shoulder x-ray November 03, 2020 HISTORY: RT shoulder pain and limited mobility for just over 2 years per patient. TECHNIQUE: Multiplanar, multisequence imaging of the right shoulder is performed without contrast. FINDINGS: Rotator Cuff: Increased signal distal supraspinatus and much lesser degree infraspinatus tendon anter ior superior fibers. In addition there is adjacent subdeltoid/subacromial bursal fluid. There is sign ificant focal tear at articular surface distal supraspinatus tendon measuring 6 mm transversely coron al image 15 and 12 mm AP diameter since sagittal image 5. Subscapularis tendon is intact. Rotator cuf f muscle bulk is preserved. Acromioclavicular Joint: Moderate narrowing at acromioclavicular joint with loss of the underlying fa t plane, this is best appreciated on sagittal image 17. Unremarkable distal acromion morphology. Glenohumeral Joint: Mild narrowing. No significant spurring. No significant effusion. Labrum: The labrum appears grossly intact given limitation of non-arthrogram study. Biceps Tendon: The long head of biceps is in normal location within bicipital groove. Bone marrow signal: Subchondral cystic change superior aspect humeral head. Other: No additional significant abnormality is appreciated. IMPRESSION: 1. Tendinosis distal supraspinatus tendon with significant articular surface tear. 2. Moderate acromioclavicular joint arthropathy with underlying impingement, correlate clinically.
== END | disposition home or self-care (01) ==
LOC: RADMRIMAIN 15:54
PROVIDERS: ATTEND Orthopaedic Surgery
DX: M67.813 Other specified disorders of tendon, right shoulder (principal); M24.111 Other articular cartilage disorders, right shoulder; M19.011 Primary osteoarthritis, right shoulder

== ENCOUNTER → 2021-02-23 | Outpatient (CLI) | payer OTHER ==
[2021-02-23 11:12] VITALS: BP 133/92; PULSE 111; RESP 18; TEMP 98.4
--- NOTE | 2021-02-23 13:48 | P.HPOB ---
History of Present Illness H&P Date: 02/23/21 Chief Complaint: The patient is here for her routine gynecologic exam. This is a 40-year-old (One stillbirth, One set of twins) with an LMP of November 2020. The patient is here to establish with this office. She is status post endometrial ablation in 2016 and has had infrequent light menstrual periods about 4 times a year since the ablation. She is status post tubal ligation. Her last pelvic examination was about 2 years ago. She is complaining of groin and labial boils which she has had for many years. Typically, in the past, she would get one at a time, but in the past year or 2 she has gotten up to 3 or 4 at one time. She states she has had several boils lanced in the past when they have gotten day and painful. About 1 year ago she states the doctor biopsied one on the left labia that was benign. She is otherwise without gynecologic complaints. Review of Systems She believes she has gained about 20 pounds over the past year and attributes this to her chronic pain which limits her ability to exercise. She denies re spiratory or cardiac problems. GI: She tends to feel nauseous in the morning. She also has been expressing some constipation. Past Medical History Past Medical History: Asthma, Musculoskeletal Disorder Additional Past Medical History / Comment(s): anemia, "bulging disc in lower back", neuropathy. Chronic neck and back problems. 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 One prior stillbirth and one set of twins. History of Any Multi-Drug Resistant Organisms: None Reported Past Surgical History: Section, Orthopedic Surgery, Tubal Ligation, Uterine Ablation Additional Past Surgical History / Comment(s): Endometrial ablation in 2017. section 2. Ankle surgery. Past Psychological History: Anxiety Smoking Status: Current every day smoker (Half pack per day) Past Alcohol Use History: Occasional (4 per week) Past Drug Use History: None Reported Additional History: She is single and has been with her boyfriend since 2016 and they live together. She is considered disabled. - Past Family History Mother Family Medical History: Hypertension Additional Family Medical History / Comment(s): Maternal uncle has hypertension and a maternal grandmother has diabetes. Maternal aunt had ovarian cancer in a maternal aunt also had breast cancer. Medications and Allergies Home Medications Medication Instructions Recorded Confirmed Type Albuterol Inhaler (Mhu) [Ventolin 1 - 2 puff INHALATION RT-Q6H PRN 04/09/18 02/23/21 Rx Hfa Inhaler (u)] #1 inhaler Multivitamins, Thera [Multivitamin 1 tab PO DAILY 04/09/18 02/23/21 History (formulary)] Cholecalciferol [Vitamin D3 (25 1,000 unit PO DAILY 09/16/19 02/23/21 History Mcg = 1000 Iu)] Docusate [Colace] 100 mg PO DAILY 09/16/19 02/23/21 History Cyanocobalamin (Vitamin B-12) 1,000 mcg PO DAILY 02/23/21 02/23/21 History [Vitamin B-12] Folic Acid 1 mg PO DAILY 02/23/21 02/23/21 History HYDROcodone/APAP 7.5-325MG [[place] 1 tab PO Q6HR PRN 02/23/21 02/23/21 History 7.5-325] Pregabalin [Lyrica] 100 mg PO BID 02/23/21 02/23/21 History Allergies Allergy/AdvReac Type Severity Reaction Status Date / Time No Known Allergies Allergy Verified 02/23/21 11:01 Exam Vital Signs Temp Pulse Resp BP Pulse Ox 02/23/21 11:05 98.4 F 111 H 18 133/92 96 Intake and Output 02/22/21 02/23/21 02/23/21 22:59 06:59 14:59 Other: Weight 82.554 kg Height 5 feet 6 inches, weight 182 pounds, BMI 29.4. This is a well-developed well-nourished black female who is alert and oriented times 3 in no acute distress. She has a very slow gait which she relates to her chronic back pain and problems. HEENT: Within normal limits. NECK: Supple without mass or thyromegaly. CHEST AND LUNGS: Clear to auscultation. HEART: Regular rate and rhythm. BREASTS: Are without mass or discharge. AXILLARY EXAM: Negative for adenopathy. BACK: There is generalized back and spine tenderness related to her chronic back pain. ABDOMEN: Soft, nontender, without palpable masses. PELVIC EXAM: External genitalia reveals various scarred areas with prior drainage of boils. There is a 1.2 x 1.0 cm hardened inclusion cyst on the inner side of the left labia majora that has the Center removed consistent with a previous biopsy which she states she had done about 1 year ago. This has a benign appearance. Cervix and vagina appear normal. There is no unusual discharge. There is no evidence of prolapse. The uterus is midposition, nongravid size and nontender. There are no palpable adnexal masses or tenderness. RECTAL EXAM: negative for mass or tenderness and is negative for occult blood. EXTREMITIES: Nontender. IMPRESSION: 1. 40-year-old premenopausal female with oligomenorrhea following endometrial ablation for hypermenorrhea who is status post tubal ligation. 2. Long history of groin and labial boils which may have been inclusion cyst or ingrown hairs. Currently there are no suspicious lesions. Currently there is no signs of active infection or acute genital problems. PLAN: 1. Pap smear cotest was performed. 2. Self breast awareness was discussed with the patient. 3. Screening mammogram is scheduled next month and the order slip was given to the patient for this. 4. We have had a long discussion regarding her recurrent vulvar and groin boils. There are no acute changes that require immediate intervention. I have recommended that she avoid close shaving in this area has she has already noted that close shaving makes her condition worse. This may be because it creates ingrown hair follicles that become inflamed. When she feels a boil is developing, I have recommended using warm compresses with pressure and I have also recommended that she use clindamycin pledgets twice a day to help prevent infections which may have created them to become large and painful in the past. The electronic prescription for the clindamycin pledgets will be sent to [facility]. 5. She was advised to return in one year for her annual well woman exam and as needed.
== END ==
LOC: WWCWWP 10:52
PROVIDERS: ATTEND Obstetrics & Gynecology
DX: N91.5 Oligomenorrhea, unspecified (principal); J45.909 Unspecified asthma, uncomplicated; F41.9 Anxiety disorder, unspecified; F17.210 Nicotine dependence, cigarettes, uncomplicated; Z98.51 Tubal ligation status; Z87.2 Personal history of diseases of the skin and subcutaneous tissue; Z79.899 Other long term (current) drug therapy

== ENCOUNTER → 2021-04-12 | Outpatient (CLI) | payer OTHER ==
--- NOTE | 2021-04-15 09:10 | MM ---
Reason for exam: screening (asymptomatic). Physical Findings: A clinical breast exam by your physician is recommended on an annual basis and results should be correlated with mammographic findings. MG Screening Mammo w CAD Bilateral CC and MLO view(s) were taken. The breast tissue is heterogeneously dense. This may lower the sensitivity of mammography. There is no discrete abnormality. No significant changes when compared with prior studies. ASSESSMENT: Negative, BI-RAD 1 RECOMMENDATION: Routine screening mammogram of both breasts in 1 year.
== END | disposition home or self-care (01) ==
LOC: RADMAMWWP 09:27
PROVIDERS: ATTEND Obstetrics & Gynecology
DX: Z12.31 Encounter for screening mammogram for malignant neoplasm of breast (principal)
CPT/HCPCS: 77067

== ENCOUNTER 2022-04-19 08:44 | Day surgery (SDC) | payer OTHER ==
[2022-04-14 10:29] VITALS: BMI 29.7
[~2022-04-19 08:44] MED LIST: LACTATED RINGERS 1,000 ML IV SCH; LIDOCAINE 1% (10MG/ML) FOR IV START INTRADERMA PRN
[2022-04-19 09:21] VITALS: RESP 16; TEMP 97.2
[2022-04-19] MEDS ORDERED: PROPOFOL 10 MG/ML 20 ML VIAL IV ONE (09:54)
--- NOTE | 2022-04-19 09:59 | P.GSHP ---
History of Present Illness H&P Date: 04/19/22 CHIEF COMPLAINT: Change in bowel habits HISTORY OF PRESENT ILLNESS: The patient is a 41-year-old female who presents for change in bowel habits. Lower endoscopy was offered for further evaluation and management. PAST MEDICAL HISTORY: Please see list. PAST SURGICAL HISTORY: Please see list. MEDICATIONS: Please see list. ALLERGIES: Please see list. SOCIAL HISTORY: No illicit drug use FAMILY HISTORY: No reports of Crohn disease or ulcerative colitis. REVIEW OF ORGAN SYSTEMS: CONSTITUTIONAL: No reports of fevers or chills. PHYSICAL EXAM: VITAL SIGNS: Stable GENERAL: Well-developed pleasant in no acute distress. HEENT: No scleral icterus. Extraocular movements grossly intact. Moist buccal mucosa. NECK: Supple without lymphadenopathy. CHEST: Unlabored respirations. Equal bilateral excursions. CARDIOVASCULAR: Regular rate and rhythm. Distal 2+ pulses. ABDOMEN: Soft, nontender, nondistended. MUSCULOSKELETAL: No clubbing, cyanosis, or edema. ASSESSMENT: 1. Change in bowel habits PLAN: 1. Recommend proceeding with a lower endoscopy Past Medical History Past Medical History: Asthma, Musculoskeletal Disorder Additional Past Medical History / Comment(s): anemia, "bulging disc in lower back", neuropathy. Chronic neck and back problems. ABD PAIN, BLOATING, CONSTIPATION History of Any Multi-Drug Resistant Organisms: None Reported Past Surgical History: Section, Orthopedic Surgery, Tubal Ligation, Uterine Ablation Additional Past Surgical History / Comment(s): Endometrial ablation in 2017. section 2. RT Ankle surgery. Past Anesthesia/Blood Transfusion Reactions: No Reported Reaction Smoking Status: Current every day smoker - Past Family History Mother Family Medical History: Hypertension Additional Family Medical History / Comment(s): Maternal uncle has hypertension and a maternal grandmother has diabetes. Maternal aunt had ovarian cancer in a maternal aunt also had breast cancer. Medications and Allergies Home Medications Medication Instructions Recorded Confirmed Type Albuterol Inhaler (Mhu) [Ventolin 1 - 2 puff INHALATION RT-Q6H PRN 04/09/18 04/14/22 Rx Hfa Inhaler (Mhu)] #1 inhaler Multivitamins, Thera [Multivitamin 1 tab PO DAILY 04/09/18 04/14/22 History (formulary)] Cholecalciferol [Vitamin D3 (25 1,000 unit PO DAILY 09/16/19 04/14/22 History Mcg = 1000 Iu)] Docusate [Colace] 100 mg PO DAILY 09/16/19 04/14/22 History Cyanocobalamin (Vitamin B-12) 1,000 mcg PO DAILY 02/23/21 04/14/22 History [Vitamin B-12] Folic Acid 1 mg PO DAILY 02/23/21 04/14/22 History HYDROcodone/APAP 7.5-325MG [[place] 1 tab PO Q6HR PRN 02/23/21 04/14/22 History 7.5-325] Pregabalin [Lyrica] 100 mg PO BID 02/23/21 04/14/22 History Allergies Allergy/AdvReac Type Severity Reaction Status Date / Time No Known Allergies Allergy Verified 04/19/22 09:06 Surgical - Exam Vital Signs Temp Pulse Resp BP Pulse Ox 97.2 F L 93 16 141/90 97 04/19/22 09:14 04/19/22 09:14 04/19/22 09:14 04/19/22 09:14 04/19/22 09:14
--- NOTE | 2022-04-19 10:13 | P.PCN ---
Date of Procedure: 04/19/22 Description of Procedure: PREOPERATIVE DIAGNOSIS: Change in bowel habit POSTOPERATIVE DIAGNOSIS: Ascending colitis Rectal polyp Transverse colon polyp Sigmoid diverticulosis OPERATION: Colonoscopy to the ileocecal valve and appendiceal orifice, cecum Colonoscopy with cold forceps biopsy SURGEON: Elaine Valencia MD. ANESTHESIA: MAC. INDICATIONS: The patient is an 41-year-old female who presents with change in bowel habits including abdominal pain. Benefits and risks were described and informed consent was obtained. DESCRIPTION OF PROCEDURE: The patient had undergone Sutab prep. The patient had been brought into the operating room and laid in the left lateral decubitus position. After adequate intravenous sedation, the rectum was examined with 2% lidocaine jelly. No external hemorrhoids were encountered. The rectal tone was within normal limits. No lesions were palpated in the rectal vault. An Olympus colonoscope was advanced until the cecum, ileocecal valve and appendiceal orifice were clearly viewed. The prep was excellent. Sigmoid diverticulosis was encountered. Colonic polyps were found and removed. Cold biopsies were taken of the ascending colon. Retroflexion of the scope demonstrated grade 1 internal hemorrhoids without active bleeding or inflammation. The colon was desufflated. The patient had tolerated the procedure well. Withdrawal time was over 6 minutes. FINDINGS: Aronchick preparation quality scale 1 (1-5) Internal hemorrhoids, grade 1 No external hemorrhoids Arteriovenous malformations, 3 mm hepatic flexure Sigmoid diverticulosis Removal of 2 polyps: - Cold forceps biopsy at 5 cm from the anal verge, 3 mm polyp, rectum - Cold forceps biopsy at mid transverse colon, 5 mm polyp. Ascending colon colitis with biopsies obtained cold forceps RECOMMENDATIONS: Repeat colonoscopy in 3 years, 2024 Plan - Discharge Summary Discharge Rx Participant: No New Discharge Prescriptions: Continue Multivitamins, Thera [Multivitamin (formulary)] 1 tab PO DAILY Albuterol Inhaler (Mhu) [Ventolin Hfa Inhaler (Mhu)] 1 - 2 puff INHALATION RT-Q6H PRN #1 inhaler PRN Reason: Shortness Of Breath Docusate [Colace] 100 mg PO DAILY Cholecalciferol [Vitamin D3 (25 Mcg = 1000 Iu)] 1,000 unit PO DAILY Cyanocobalamin (Vitamin B-12) [Vitamin B-12] 1,000 mcg PO DAILY Pregabalin [Lyrica] 100 mg PO BID Folic Acid 1 mg PO DAILY HYDROcodone/APAP 7.5-325MG [[place] 7.5-325] 1 tab PO Q6HR PRN PRN Reason: Pain Discharge Medication List Albuterol Inhaler (Mhu) [Ventolin Hfa Inhaler (Mhu)] 1 - 2 puff INHALATION RT- Q6H PRN #1 inhaler 04/09/18 [Rx] Multivitamins, Thera [Multivitamin (formulary)] 1 tab PO DAILY 04/09/18 [History] Cholecalciferol [Vitamin D3 (25 Mcg = 1000 Iu)] 1,000 unit PO DAILY 09/16/19 [History] Docusate [Colace] 100 mg PO DAILY 09/16/19 [History] Cyanocobalamin (Vitamin B-12) [Vitamin B-12] 1,000 mcg PO DAILY 02/23/21 [History] Folic Acid 1 mg PO DAILY 02/23/21 [History] HYDROcodone/APAP 7.5-325MG [[place] 7.5-325] 1 tab PO Q6HR PRN 02/23/21 [History] Pregabalin [Lyrica] 100 mg PO BID 02/23/21 [History] Follow up Appointment(s)/Referral(s): Elaine Valencia MD [STAFF PHYSICIAN] - 05/09/22 Patient Instructions/Handouts: Microscopic Colitis (DC), Colorectal Polyps (GEN), Diverticulosis Diet (GEN), Diverticulosis (GEN) Activity/Diet/Wound Care/Special Instructions: Repeat colonoscopy in 3 years, 2024 Discharge Disposition: HOME SELF-CARE
[2022-04-19 10:52] VITALS: BP 130/80; PULSE 87
== END 2022-04-19 11:16 | disposition home or self-care (01) ==
LOC: ORWHC2ENDO 08:44
PROVIDERS: ATTEND Surgery Plastic and Reconstructive Surgery
DX: D12.3 Benign neoplasm of transverse colon (principal); K63.5 Polyp of colon; J45.909 Unspecified asthma, uncomplicated; M51.26 Other intervertebral disc displacement, lumbar region; G62.9 Polyneuropathy, unspecified; Z98.891 History of uterine scar from previous surgery; Z98.51 Tubal ligation status; Z98.890 Other specified postprocedural states; F17.200 Nicotine dependence, unspecified, uncomplicated; Z82.49 Family history of ischemic heart disease and other diseases of the circulatory system; Z83.3 Family history of diabetes mellitus; Z80.3 Family history of malignant neoplasm of breast; Z80.41 Family history of malignant neoplasm of ovary; Z79.899 Other long term (current) drug therapy
CPT/HCPCS: 81025; 88305; 45380; J2704

== ENCOUNTER → 2022-04-26 | Outpatient (CLI) | payer OTHER ==
--- NOTE | 2022-04-26 08:52 | MM ---
Reason for Exam: Clinical finding. Last mammogram was performed 1 year(s) and 1 month(s) ago. Patient History: Menarche at age 8. First Full-Term at age 21. Maternal aunt had breast cancer under age 50. Maternal aunt had breast cancer at or over age 50. Maternal aunt had breast cancer. Last menstrual period: 11/19/2019 Risk Values: Trinity 5 year model risk: 0.6%. NCI Lifetime model risk: 9.8%. Prior Study Comparison: 04/12/2021 Bilateral Screening Mammogram, [facility]. Tissue Density: The breast tissue is heterogeneously dense. This may lower the sensitivity of mammography. Findings: Analyzed By CAD. No evidence for suspicious mass lesion or suspicious clustered microcalcifications. No skin thickening or distortion. Overall Assessment: Negative, BI-RAD 1 Management: Screening Mammogram of both breasts in 1 year. A clinical breast exam by your physician is recommended on an annual basis and results should be correlated with mammographic findings. This exam should not preclude additional follow-up of suspicious palpable abnormalities. Results were given to the patient verbally at the time of exam. Electronically signed and approved by: Loco Diego M.D. Radiologis
== END | disposition home or self-care (01) ==
LOC: RADMAMWWP 08:16
PROVIDERS: ATTEND Family Medicine
DX: R92.8 Other abnormal and inconclusive findings on diagnostic imaging of breast (principal); Z80.3 Family history of malignant neoplasm of breast
CPT/HCPCS: 77066

== ENCOUNTER 2022-05-25 07:58 | Day surgery (SDC) | payer OTHER ==
[2022-05-19 12:52] VITALS: BMI 29.7
--- NOTE | 2022-05-25 07:36 | P.GSHP ---
History of Present Illness H&P Date: 05/25/22 CHIEF COMPLAINT: GERD HISTORY OF PRESENT ILLNESS: The patient is a 41-year-old female who presents reports gastroesophageal reflux disease. Upper endoscopy was offered for further evaluation and management. PAST MEDICAL HISTORY: Please see list. PAST SURGICAL HISTORY: Please see list. MEDICATIONS: Please see list. ALLERGIES: Please see list. SOCIAL HISTORY: No illicit drug use FAMILY HISTORY: No reports of Crohn disease or ulcerative colitis. REVIEW OF ORGAN SYSTEMS: CONSTITUTIONAL: No reports of fevers or chills. GI: Denies any blood in stools or constipation. PHYSICAL EXAM: VITAL SIGNS: Stable GENERAL: Well-developed and pleasant in no acute distress. HEENT: No scleral icterus. Extraocular movements grossly intact. Moist buccal mucosa. NECK: Supple without lymphadenopathy. CHEST: Unlabored respirations. Equal bilateral excursions. CARDIOVASCULAR: Regular rate and rhythm. Distal 2+ pulses. ABDOMEN: Soft, nondistended. MUSCULOSKELETAL: No clubbing, cyanosis, or edema. ASSESSMENT: 1. Gastroesophageal reflux disease PLAN: 1. Recommend proceeding with an upper endoscopy Past Medical History Past Medical History: Asthma, Musculoskeletal Disorder Additional Past Medical History / Comment(s): anemia, "bulging disc in lower back", neuropathy. Chronic neck and back problems. ABD PAIN, BLOATING, CONSTIPATION History of Any Multi-Drug Resistant Organisms: None Reported Past Surgical History: Section, Orthopedic Surgery, Tubal Ligation, Uterine Ablation Additional Past Surgical History / Comment(s): Endometrial ablation in 2017. section 2. RT Ankle surgery. COLONOSCOPY 04/19/22 Past Anesthesia/Blood Transfusion Reactions: No Reported Reaction Smoking Status: Current every day smoker - Past Family History Mother Family Medical History: Hypertension Additional Family Medical History / Comment(s): Maternal uncle has hypertension and a maternal grandmother has diabetes. Maternal aunt had ovarian cancer in a maternal aunt also had breast cancer. Medications and Allergies Home Medications Medication Instructions Recorded Confirmed Type Albuterol Inhaler [Ventolin Hfa 1 - 2 puff INHALATION RT-Q6H PRN 04/09/18 05/19/22 Rx Inhaler] #1 inhaler Multivitamins, Thera [Multivitamin 1 tab PO DAILY 04/09/18 05/19/22 History (formulary)] Cholecalciferol [Vitamin D3 (25 1,000 unit PO DAILY 09/16/19 05/19/22 History Mcg = 1000 Iu)] Docusate [Colace] 100 mg PO DAILY 09/16/19 05/19/22 History Cyanocobalamin (Vitamin B-12) 1,000 mcg PO DAILY 02/23/21 05/19/22 History [Vitamin B-12] Folic Acid 1 mg PO DAILY 02/23/21 05/19/22 History HYDROcodone/APAP 7.5-325MG [[place] 1 tab PO Q6HR PRN 02/23/21 05/19/22 History 7.5-325] Pregabalin [Lyrica] 100 mg PO BID 02/23/21 05/19/22 History Allergies Allergy/AdvReac Type Severity Reaction Status Date / Time No Known Allergies Allergy Verified 05/19/22 12:46
[~2022-05-25 07:58] MED LIST changes: -LIDOCAINE 1% (10MG/ML) FOR IV START INTRADERMA PRN
[2022-05-25 08:32] VITALS: RESP 16; TEMP 96.3
[2022-05-25] MEDS ORDERED: LACTATED RINGERS 1,000 ML IV ONE (08:49)
[2022-05-25] MEDS ORDERED: PROPOFOL 10 MG/ML 20 ML VIAL IV ONE (09:28)
[2022-05-25] MEDS ORDERED: LIDOCAINE 2% INJ 20 MG/ML (2 ML VIAL) ONE (09:28)
--- NOTE | 2022-05-25 09:49 | P.PCN ---
Date of Procedure: 05/25/22 Description of Procedure: PREOPERATIVE DIAGNOSIS: Gastroesophageal reflux disease. POSTOPERATIVE DIAGNOSIS: Gastroesophageal reflux disease. OPERATION: Esophagogastroduodenoscopy with biopsies along antrum and duodenum SURGEON: Elaine Valencia MD ANESTHESIA: MAC. INDICATIONS: The patient is a 41-year-old female who presents with reflux disease. Benefits and risks of the procedure were described. Informed consent was obtained. DESCRIPTION: The patient was brought into the endoscopy suite and laid in the left lateral decubitus position. An Olympus gastroscope was passed along the posterior oropharynx down to the distal esophagus where the squamocolumnar junction was encountered at 36 cm from the incisors. The stomach was entered and no bile reflux was found. Additional findings are listed below. Biopsies with cold forceps were obtained of the antrum. The first through third portion of the duodenum was examined. Retroflexion of the scope confirmed Hill grade 2 lower esophageal valve. The squamocolumnar junction demonstrated LA grade A erosive esophagitis. The stomach was desufflated. The patient tolerated the procedure well. FINDINGS: Squamocolumnar junction 36 cm from the incisors. Diaphragmatic hiatus at 36 cm. Hill grade 2 lower esophageal valve. LA grade A erosive esophagitis. Cold biopsies of the duodeum obtained Chronic gastritis biopsies obtained RECOMMENDATIONS: Upper endoscopy as needed. Plan - Discharge Summary Discharge Rx Participant: No New Discharge Prescriptions: Continue Multivitamins, Thera [Multivitamin (formulary)] 1 tab PO DAILY Albuterol Inhaler [Ventolin Hfa Inhaler] 1 - 2 puff INHALATION RT-Q6H PRN #1 inhaler PRN Reason: Shortness Of Breath Docusate [Colace] 100 mg PO DAILY Cholecalciferol [Vitamin D3 (25 Mcg = 1000 Iu)] 1,000 unit PO DAILY Cyanocobalamin (Vitamin B-12) [Vitamin B-12] 1,000 mcg PO DAILY Pregabalin [Lyrica] 100 mg PO BID Folic Acid 1 mg PO DAILY HYDROcodone/APAP 7.5-325MG [[place] 7.5-325] 1 tab PO Q6HR PRN PRN Reason: Pain Discharge Medication List Albuterol Inhaler [Ventolin Hfa Inhaler] 1 - 2 puff INHALATION RT-Q6H PRN #1 inhaler 04/09/18 [Rx] Multivitamins, Thera [Multivitamin (formulary)] 1 tab PO DAILY 04/09/18 [History] Cholecalciferol [Vitamin D3 (25 Mcg = 1000 Iu)] 1,000 unit PO DAILY 09/16/19 [History] Docusate [Colace] 100 mg PO DAILY 09/16/19 [History] Cyanocobalamin (Vitamin B-12) [Vitamin B-12] 1,000 mcg PO DAILY 02/23/21 [History] Folic Acid 1 mg PO DAILY 02/23/21 [History] HYDROcodone/APAP 7.5-325MG [[place] 7.5-325] 1 tab PO Q6HR PRN 02/23/21 [History] Pregabalin [Lyrica] 100 mg PO BID 02/23/21 [History] Follow up Appointment(s)/Referral(s): Elaine Valencia MD [STAFF PHYSICIAN] - 06/06/22 Patient Instructions/Handouts: *[facility] - (Anesthesia) Endoscopy Discharge Instructions Discharge Disposition: HOME SELF-CARE
[2022-05-25 10:04] VITALS: BP 100/65; PULSE 77
== END 2022-05-25 10:20 | disposition home or self-care (01) ==
LOC: ORWHC2ENDO 07:58
PROVIDERS: ATTEND Surgery Plastic and Reconstructive Surgery
DX: K22.10 Ulcer of esophagus without bleeding (principal); K29.50 Unspecified chronic gastritis without bleeding; K21.00 Gastro-esophageal reflux disease with esophagitis, without bleeding; J45.909 Unspecified asthma, uncomplicated; D64.9 Anemia, unspecified; G89.29 Other chronic pain; F17.210 Nicotine dependence, cigarettes, uncomplicated; M54.2 Cervicalgia; M54.9 Dorsalgia, unspecified; G62.9 Polyneuropathy, unspecified; Z98.891 History of uterine scar from previous surgery; Z98.51 Tubal ligation status; Z98.890 Other specified postprocedural states; Z82.49 Family history of ischemic heart disease and other diseases of the circulatory system; Z83.3 Family history of diabetes mellitus; Z80.41 Family history of malignant neoplasm of ovary; Z80.3 Family history of malignant neoplasm of breast; Z79.899 Other long term (current) drug therapy
CPT/HCPCS: 81025; 88305; 43239; J2704; J2001

== ENCOUNTER → 2022-05-26 | Outpatient (CLI) | payer OTHER ==
--- NOTE | 2022-05-26 10:08 | US ---
EXAMINATION TYPE: US gallbladder DATE OF EXAM: 05/26/2022 COMPARISON: CT April 28, 2020 CLINICAL HISTORY: R10.11 Rt upper quadrant pain. Pain. EXAM MEASUREMENTS: Liver Length: 21.5 cm Gallbladder Wall: 0.37 cm CBD: 0.22 cm Right Kidney: 11.6 x 5.9 x 4.2 cm Exam is limited due to gas. Pancreas: Not well seen. Liver: Appears heterogeneous and enlarged. Indistinct, hypoechoic area seen anterior to the joanna hep atis suggestive of possible focal fatty sparin.9 x 1.3 x 1.1 cm. Gallbladder: Appears anechoic. Evidence for sonographic Koehler's sign: No CBD: Portions seen appear wnl, limited. Right Kidney: No hydronephrosis or masses seen Visualized portion of pancreas within normal limits. Visualized liver heterogeneously hyperechoic wit hout suspicious mass or ductal dilatation seen on images saved. Hepatomegaly redemonstrated. Surround ing ascites. No shadowing mobile gallstones. IMPRESSION: Hepatomegaly with fatty infiltrative hepatocellular disease redemonstrated. No gallstones or ultrasound evidence for acute cholecystitis.
== END | disposition home or self-care (01) ==
LOC: RADUSWWP 08:39
PROVIDERS: ATTEND Surgery Plastic and Reconstructive Surgery
DX: K76.0 Fatty (change of) liver, not elsewhere classified (principal)
CPT/HCPCS: 76705; 88305

== ENCOUNTER → 2022-06-16 | Outpatient (CLI) | payer OTHER ==
--- NOTE | 2022-06-18 10:37 | US ---
EXAMINATION TYPE: US thyroid st tissue head/neck DATE OF EXAM: 06/16/2022 COMPARISON: NONE CLINICAL HISTORY: E04.1 Thyroid Nodule. Thyroid nodule GLAND SIZE: Right Lobe: 5.2 x 1.3 x 1.8 cm Overall Parenchyma: homogenous Left Lobe: 5.3 x 1.5 x 2.2 cm Overall Parenchyma: homogeneous Isthmus Thickness: 0.4 cm NODULES RIGHT: # of nodules measured on right: 1 1. 1.0 x .6 x .8 cm, lower medial, solid or almost completely solid, hypoechoic nodule, which is wid er than tall, with smooth margins, without echogenic foci. TR 4 Prior size: No prior LEFT: # of nodules measured on left: 1 1. 1.2 X 1.2 x 1.2 cm, mid , solid or almost completely solid, hypoechoic nodule, which is wider t lauren tall, with smooth margins, without echogenic foci. Prior size: No prior. ISTHMUS: # of nodules measured in the isthmus: .4 cm Bilateral neck scanned, no evidence of lymphadenopathy. IMPRESSION: 1. Moderately suspicious nodules bilateral thyroid lobes. Follow-up in one year is recommended. 2017 ACR TI-RADS LEVEL: TR-RADS 4 - Moderately Suspicious: Follow if > 1 cm, FNA if > 1.5 cm *Highest TI-RADS level nodule reported
== END | disposition home or self-care (01) ==
LOC: RADUSWWP 16:55
PROVIDERS: ATTEND Family Medicine
DX: E04.2 Nontoxic multinodular goiter (principal)
CPT/HCPCS: 76536

== ENCOUNTER → 2022-06-21 | Outpatient (CLI) | payer OTHER ==
[2022-06-21 08:49] VITALS: BP 122/82; PULSE 100; RESP 17; TEMP 97.9
--- NOTE | 2022-06-21 09:51 | P.HPOB ---
History of Present Illness H&P Date: 06/21/22 Chief Complaint: The patient is here for her routine gynecologic exam. This is a 41-year-old to [birth year](ones still born with one set of twins) with an LMP of November 2020. She is status post endometrial ablation in 2016 and has had infrequent light menstrual periods since the ablation. She is status post tubal ligation. She continues to have vulvar and inner thigh boils which she has had throughout most of her life. They typically will come to a head, and drain and heal. She has 3 vulvar cyst that seemed to never go away and has been there for a few years. In approximately 2019, a doctor biopsy the left labial cyst and was benign. She states that one didn't heal right and is the larger of the 3 cysts. Her biggest complaint with these is that they are pruritic. She is otherwise without complaints. Review of Systems She has lost about 12 pounds over the past year. She denies respiratory or cardiac problems. GI: Intermittent constipation. She has seen a doctor for this and underwent a colonoscopy with upper endoscopy earlier this year because of this. Past Medical History Past Medical History: Asthma, Musculoskeletal Disorder Additional Past Medical History / Comment(s): anemia, "bulging disc in lower back", neuropathy. Chronic neck and back problems. Past [employer] history: HPV in the past. One prior stillbirth and one set of twins. History of Any Multi-Drug Resistant Organisms: None Reported Past Surgical History: Section, Orthopedic Surgery, Tubal Ligation, Uterine Ablation Additional Past Surgical History / Comment(s): Endometrial ablation in 2016. section 2. RT Ankle surgery. COLONOSCOPY 04/19/22 Past Anesthesia/Blood Transfusion Reactions: No Reported Reaction Past Psychological History: Anxiety Smoking Status: Current every day smoker (12 cigarettes per day) Past Alcohol Use History: Occasional Additional Past Alcohol Use History / Comment(s): SMOKES 1/2 PPD SINCE AGE 16. She states she stopped drinking alcohol in April 2022 because of GI problems. Past Drug Use History: None Reported Additional History: She is single and has been with her boyfriend since 2016 and they live together. She is disabled. - Past Family History Mother Family Medical History: Hypertension Additional Family Medical History / Comment(s): Maternal uncle has hypertension and a maternal grandmother has diabetes. Maternal aunt had ovarian cancer in a maternal aunt also had breast cancer. Medications and Allergies Home Medications Medication Instructions Recorded Confirmed Type Albuterol Inhaler [Ventolin Hfa 1 - 2 puff INHALATION RT-Q6H PRN 04/09/18 06/21/22 Rx Inhaler] #1 inhaler Multivitamins, Thera [Multivitamin 1 tab PO DAILY 04/09/18 06/21/22 History (formulary)] Cholecalciferol [Vitamin D3 (25 1,000 unit PO DAILY 09/16/19 06/21/22 History Mcg = 1000 Iu)] Docusate [Colace] 100 mg PO DAILY 09/16/19 06/21/22 History Cyanocobalamin (Vitamin B-12) 1,000 mcg PO DAILY 02/23/21 06/21/22 History [Vitamin B-12] Folic Acid 1 mg PO DAILY 02/23/21 06/21/22 History HYDROcodone/APAP 7.5-325MG [[place] 1 tab PO Q6HR PRN 02/23/21 06/21/22 History 7.5-325] Pregabalin [Lyrica] 100 mg PO BID 02/23/21 06/21/22 History Ferrous Sulfate [Feosol] 325 mg PO DAILY 06/21/22 06/21/22 History Allergies Allergy/AdvReac Type Severity Reaction Status Date / Time No Known Allergies Allergy Verified 06/21/22 08:41 Exam Vital Signs Temp Pulse Resp BP Pulse Ox 06/21/22 08:46 97.9 F 100 17 122/82 97 Intake and Output 06/20/22 06/21/22 06/21/22 22:59 06:59 14:59 Other: Weight 77.111 kg Height 5 feet 3 inches, weight 170 pounds, BMI 30.1. This is a well-developed well-nourished black female who is alert and oriented times 3 in no acute distress. HEENT: Within normal limits. NECK: Supple without mass or thyromegaly. CHEST AND LUNGS: Clear to auscultation. HEART: Regular rate and rhythm. BREASTS: Are without mass or discharge. AXILLARY EXAM: Negative for adenopathy. BACK: Negative for CVA tenderness. ABDOMEN: Soft, nontender, without palpable masses. PELVIC EXAM: Reveals 3 inclusion cysts. One on the left labia and measures approximately 1 x 1 cm, and this is the one that was biopsied a proximally 2 years ago. One is on the right side lateral to the clitoris and measures approximately 0.5 cm. There is another one just left of the clitoris and measures approximately 4 mm. They are all benign-appearing and nontender. Cervix and vagina appear normal. There is no unusual discharge. There is no evidence of prolapse. The uterus is midposition, nongravid size and nontender. There are no palpable adnexal masses or tenderness. RECTAL EXAM: negative for mass or tenderness and is negative for occult blood. EXTREMITIES: Nontender. IMPRESSION: 1. 41-year-old female who is status post tubal ligation and near amenorrheic since her ablation, with benign-appearing vulvar inclusion cysts which are pruritic. 2. Previous ASCUS Pap smear with negative high-risk HPV testing on 03/08/2021. PLAN: 1. Pap smear was deferred. We will plan on repeating a Pap smear cotest at her next annual well woman examination. 2. Self breast awareness was discussed with the patient. We have also discussed symptoms associated with inflammatory breast cancer. 3. Diagnostic mammogram was done on 04/26/2022 and was benign. Screening mammogram will be repeated after approximately 1 year. 4. Trial of Kenalog 0.1% cream twice a day to the vulvar inclusion cysts where she has been experiencing pruritus. The electronic prescription will be sent to [facility] on . If her pruritus is not improved after 1 month, she was instructed to call and we can reevaluate and consider the larger inclusion cyst on the left. She understands that lancing the inclusion cyst may only be temporary and this can and then recur. I do not feel that they are suspicious in appearance and I do not believe they are likely to cause major problems, but they seem to be causing problems due to the pruritus. The small inclusion cysts are so small that I do not think there would be as much benefit been trying to lancet compared to the risk of bleeding or problems with such a procedure. 5. She has not had a Covid vaccination nor has she had Covid. I have recommended that she look into getting a Covid vaccination. She will consider this. 6.Osteoporosis prevention was discussed. I have stressed the importance of adequate calcium, vitamin D and regular exercise. Recommended amounts of calcium and vitamin D were also discussed. 7. She was advised to return in one year for her annual well woman exam and as needed.
== END ==
LOC: WWCWWP 08:38
PROVIDERS: ATTEND Obstetrics & Gynecology
DX: Z01.419 Encounter for gynecological examination (general) (routine) without abnormal findings (principal); J45.909 Unspecified asthma, uncomplicated; F41.9 Anxiety disorder, unspecified; F17.210 Nicotine dependence, cigarettes, uncomplicated; Z79.51 Long term (current) use of inhaled steroids; Z98.51 Tubal ligation status

== ENCOUNTER 2022-08-01 20:41 | Emergency (ER) | payer OTHER ==
[2022-08-01 20:47] VITALS: BP 146/89; PULSE 92; RESP 16; TEMP 98
--- NOTE | 2022-08-01 21:43 | XR ---
EXAMINATION TYPE: XR chest 1V DATE OF EXAM: 08/01/2022 COMPARISON: NONE HISTORY: Chest pain TECHNIQUE: FINDINGS: Heart is normal. Lungs are clear of infiltrate. No heart failure. No pleural effusion. Bony thorax is intact. IMPRESSION: Normal chest.
== END 2022-08-02 00:10 | disposition left against medical advice (07) ==
LOC: EC 20:41
DX: Z53.21 Procedure and treatment not carried out due to patient leaving prior to being seen by health care provider (principal)
CPT/HCPCS: 71045; 99499

== ENCOUNTER → 2022-08-24 | Outpatient (CLI) | payer OTHER ==
[2022-08-24 14:28] LABS: Basophils # (A) 0.01 X 10*3/uL (0.00-0.10); Basophils % (A) 0.2 %; Eosinophils # (A) 0.12 X 10*3/uL (0.04-0.35); Eosinophils % (A) 2.6 %; HCT 41.5 % (37.2-46.3); HGB 13.4 g/dL (12.0-15.0); Immature Grans, Automated 0.2 %; Lymphocytes # (A) 1.93 X 10*3/uL (0.90-5.00); Lymphocytes % (A) 41.4 %; MCH 28.2 pg (27.0-32.0); MCHC 32.3 g/dL (32.0-37.0); MCV 87.4 fL (80.0-97.0); Mean Platelet Volume 9.6 fL (9.5-12.2); Monocytes % (A) 6.4 %; NRBC Per 100 WBC 0 /100 WBCS (0.0-0.0); Neutrophils # (A) 2.29 X 10*3/uL (1.80-7.70); Neutrophils % (A) 49.2 %; Platelet Count 341 X 10*3/uL (140-440); RBC 4.75 X 10*6/uL (4.10-5.20); RDW 14.8 % (11.5-14.5); WBC 4.66 X 10*3/uL (4.50-10.00)
[2022-08-24 15:03] LABS: African American GFR (CKD) 127.7 (60.0-200.0); Albumin 4.4 g/dL (3.8-4.9); Albumin/Globulin Ratio 1.47 (1.60-3.17); Anion Gap 10.7 mmol/L (10.00-18.00); BUN/Creat Ratio 8.44 Ratio (12.00-20.00); Blood Urea Nitrogen 5.5 mg/dL (9.0-27.0); Calcium 9.4 mg/dL (8.7-10.3); Carbon Dioxide 29.1 mmol/L (20.0-27.5); Non-African American GFR(CKD) 110.2 (60.0-200.0); Potassium 3.6 mmol/L (3.5-5.5); Total Bilirubin 0.7 mg/dL (0.30-1.20); Total Protein 7.4 g/dL (6.2-8.2)
[2022-08-24 15:08] LABS: Protein, Total 7.4 g/dL (6.2-8.2)
[2022-08-25 12:01] LABS: Albumin 4.23 g/dL (3.80-4.90); Gamma Globulin 1.11 g/dL (0.70-1.50)
== END | disposition home or self-care (01) ==
LOC: LABWHC1 10:51
PROVIDERS: ATTEND Internal Medicine Gastroenterology
DX: R74.01 Elevation of levels of liver transaminase levels (principal)
CPT/HCPCS: 36415; 80053; 82103; 82104; 84165; 85025

== ENCOUNTER → 2022-10-31 | Outpatient (CLI) | payer OTHER ==
[2022-10-31 18:50] LABS: HCT 45.5 % (37.2-46.3); HGB 14.3 g/dL (12.0-15.0); MCH 29.7 pg (27.0-32.0); MCHC 31.4 g/dL (32.0-37.0); MCV 94.6 fL (80.0-97.0); Mean Platelet Volume 9.9 fL (9.5-12.2); NRBC Per 100 WBC 0 /100 WBCS (0.0-0.0); Platelet Count 303 X 10*3/uL (140-440); RBC 4.81 X 10*6/uL (4.10-5.20); RDW 16.5 % (11.5-14.5); WBC 5.46 X 10*3/uL (4.50-10.00)
== END | disposition home or self-care (01) ==
LOC: LABWHC1 11:47
PROVIDERS: ATTEND Surgery Plastic and Reconstructive Surgery
DX: Z34.82 Encounter for supervision of other normal pregnancy, second trimester (principal); Z3A.00 Weeks of gestation of pregnancy not specified
CPT/HCPCS: 36415; 85027

== ENCOUNTER 2022-11-02 10:32 | Day surgery (SDC) | payer OTHER ==
[~2022-11-02 10:32] MED LIST changes: +DEXAMETHASONE SOD PHOSPHATE 4 MG/ML 1 ML VIAL IV ONE; +HEPARIN SODIUM,PORCINE/PF 5,000 UNIT/0.5 ML SYRINGE SQ PRN; +ONDANSETRON 4 MG/2 ML VIAL IVP ONE
[2022-11-02] MEDS ORDERED: MIDAZOLAM 2 MG/2 ML VIAL IVP ONE (11:25)
[2022-11-02] MEDS ORDERED: MIDAZOLAM 2 MG/2 ML VIAL ONE (11:50)
[2022-11-02] MEDS ORDERED: NEOSTIGMINE 1 MG/ML 10 ML VIAL ONE (11:50)
[2022-11-02] MEDS ORDERED: PROPOFOL 10 MG/ML 20 ML VIAL IV ONE (11:50)
[2022-11-02] MEDS ORDERED: ROCURONIUM 10 MG/ML (5 ML VIAL) IV ONE (11:50)
[2022-11-02] MEDS ORDERED: PHENYLEPHRINE-0.9% NACL SYG 1,000 MCG/10 ML SYRINGE ONE (11:50)
[2022-11-02] MEDS ORDERED: fentaNYL (PF) 50 MCG/ML 2 ML AMP ONE (11:50)
[2022-11-02] MEDS ORDERED: LIDOCAINE 2% INJ 20 MG/ML (2 ML VIAL) ONE (11:50)
[2022-11-02] MEDS ORDERED: SUCCINYLCHOLINE CHLORIDE 200 MG/10 ML VIAL IV ONE (11:50)
[2022-11-02] MEDS ORDERED: GLYCOPYRROLATE 0.2 MG/ML 2 ML VIAL ONE (11:50)
--- NOTE | 2022-11-02 11:52 | P.GSHP ---
History of Present Illness H&P Date: 11/02/22 CHIEF COMPLAINT: Cholecystitis HISTORY OF PRESENT ILLNESS: The patient is a 42-year-old female who presents with history of epigastric including right upper quadrant abdominal pain. She underwent diagnostic studies for her gallbladder. Separately her clinical picture was consistent with cholecystitis. Now she presents for surgical intervention. PAST MEDICAL HISTORY: Please see list PAST SURGICAL HISTORY: Please see list MEDICATIONS: Please see list ALLERGIES: Please see list SOCIAL HISTORY: Please see list FAMILY HISTORY: Please see list REVIEW OF ORGAN SYSTEMS: CONSTITUTIONAL: No reports of fevers or chills. HEENT: Denies any troubles with the vision or hearing. ENDOCRINE: No reports of hypothyroidism. No diabetes. RESPIRATORY: No recent pneumonias. CARDIOVASCULAR: Denies chest pain or palpitations GI: No blood in stools or constipation. MUSCULOSKELETAL: Has occasional joint pain including back pain. NEURO: No seizure disorders or headaches. No recent stroke. PSYCH: No depression or suicidal ideation. GENITOURINARY: No active blood in urine. No urinary hesitancy. HEMATOLOGIC: No personal or family history of DVTs or pulmonary emboli. SKIN: No skin cancer. PHYSICAL EXAM: VITAL SIGNS: Afebrile vital signs stable GENERAL: Well-developed pleasant in no acute distress. HEENT: No scleral icterus. Extraocular movements grossly intact. Moist buccal mucosa. NECK: Supple without lymphadenopathy. CHEST: Unlabored respirations. Equal bilateral excursions. CARDIOVASCULAR: Regular rate regular rhythm rhythm. Distal 2+ pulses. ABDOMEN: Soft, nondistended. Tender along the epigastrium and right upper quadrant. MUSCULOSKELETAL: No clubbing, cyanosis, or edema. NEURO: Cranial nerves II to XII within normal limits. No focal or lateralizing signs. PSYCH: Alert and oriented to person, place and time. SKIN: Well-perfused good skin turgor. ASSESSMENT: 1. Epigastric and right upper quadrant abdominal pain 2. Chronic cholecystitis 3. Symptomatic gallstones. PLAN: 1. Will need a robotic cholecystectomy possible open. Benefits and risks were described. 2. Heparin for DVT prophylaxis 5000 units. 3. Antibiotic prophylaxis. 4. CBC and CMP completed 5. Non-narcotic pre and post op pain management reviewed. 6. Indocyanine green for biliary imaging. Past Medical History Past Medical History: Asthma, Musculoskeletal Disorder Additional Past Medical History / Comment(s): anemia, "bulging disc in lower back", neuropathy. Chronic neck and back problems. Past [employer] HEL[employer] history: HPV in the past. One prior stillbirth and one set of twins. GALLBLADDER DISORDER History of Any Multi-Drug Resistant Organisms: None Reported Past Surgical History: Section, Orthopedic Surgery, Tubal Ligation, Uterine Ablation Additional Past Surgical History / Comment(s): Endometrial ablation in 2017. section 2. RT Ankle surgery. COLONOSCOPY 04/19/22 Past Anesthesia/Blood Transfusion Reactions: No Reported Reaction Smoking Status: Current every day smoker - Past Family History Mother Family Medical History: Hypertension Additional Family Medical History / Comment(s): Maternal uncle has hypertension and a maternal grandmother has diabetes. Maternal aunt had ovarian cancer in a maternal aunt also had breast cancer. Medications and Allergies Home Medications Medication Instructions Recorded Confirmed Type Albuterol Inhaler [Ventolin Hfa 1 - 2 puff INHALATION RT-Q6H PRN 04/09/18 11/02/22 Rx Inhaler] #1 inhaler Multivitamins, Thera [Multivitamin 1 tab PO DAILY 04/09/18 11/02/22 History (formulary)] Cholecalciferol [Vitamin D3 (25 1,000 unit PO DAILY 09/16/19 11/02/22 History Mcg = 1000 Iu)] Docusate [Colace] 100 mg PO DAILY 09/16/19 11/02/22 History Cyanocobalamin (Vitamin B-12) 1,000 mcg PO DAILY 02/23/21 11/02/22 History [Vitamin B-12] Folic Acid 1 mg PO DAILY 02/23/21 11/02/22 History HYDROcodone/APAP 7.5-325MG [[place] 1 tab PO Q6HR PRN 02/23/21 11/02/22 History 7.5-325] Pregabalin [Lyrica] 100 mg PO BID 02/23/21 11/02/22 History Ferrous Sulfate [Feosol] 325 mg PO DAILY 06/21/22 11/02/22 History Triamcinolone 0.1% Cream [Kenalog 1 applicatio TOPICAL BID PRN #30 gm 06/21/22 11/02/22 Rx 0.1% Cream] Allergies Allergy/AdvReac Type Severity Reaction Status Date / Time No Known Allergies Allergy Verified 10/30/22 12:25 Surgical - Exam Vital Signs Temp Pulse Resp BP Pulse Ox 98.7 F 92 18 137/85 97 11/02/22 11:06 11/02/22 11:06 11/02/22 11:06 11/02/22 11:06 11/02/22 11:06
[2022-11-02] MEDS ORDERED: INDOCYANINE GREEN 25 MG VIAL IV STA (11:57)
[2022-11-02] MEDS ORDERED: BUPIVACAIN-EPI 0.25%-1:200,000 30 ML VIAL SQ ONE (12:16)
[2022-11-02 13:13] VITALS: RESP 16; TEMP 97
[2022-11-02] MEDS: HYDROmorphone 0.5 MG/0.5 ML SYRINGE IVP PRN ×4 (13:24→14:20)
[2022-11-02 14:44] VITALS: PULSE 98
[2022-11-02] MEDS ORDERED: LACTATED RINGERS 1,000 ML IV ONE (15:00)
[2022-11-02 15:13] VITALS: BP 104/71
[2022-11-02] MEDS ORDERED: oxyCODONE-APAP 7.5-325MG 1 EACH TAB PO PRN (15:31)
[2022-11-02] MEDS ORDERED: ACETAMINOPHEN TAB 500 MG TAB PO STA (15:31)
[2022-11-02] MEDS ORDERED: KETOROLAC 15 MG/ML 1 ML VIAL IVP STA (15:31)
[2022-11-02] MEDS ORDERED: SIMETHICONE 80 MG CHEWABLE PO PRN (15:31)
--- NOTE | 2022-11-02 15:38 | P.OP ---
Date of Procedure: 11/02/22 Description of Procedure: SURGEON: ELAINE VALENCIA MD PREOPERATIVE DIAGNOSES: 1. Chronic cholecystitis 2. Fatty liver disease POSTOPERATIVE DIAGNOSES: 1. Chronic cholecystitis 2. Fatty liver disease 3. Severe hepatomegaly OPERATION: Robotic-assisted da Asuncion Xi laparoscopic cholecystectomy, multiport with FIREFLY ESTIMATED BLOOD LOSS: 10 mL. SPECIMENS REMOVED: Gallbladder. COMPLICATIONS: None. OPERATIVE FINDINGS: 1. Fatty liver disease with severe hepatomegaly adding complexity 2. Dome down technique performed 3. Incarcerated umbilical hernia identified INDICATIONS: The patient is a 42-year-old female who presents with cholecystitis. Robotic assisted laparoscopic approach was described. Benefits and risks of the procedure including but not limited to bleeding, infection, injury to the biliary tree was described. Informed consent was obtained. DESCRIPTION OF PROCEDURE: Patient was brought to the operating room, placed in supine position. After general induction, the abdomen had been prepped and draped in standard sterile fashion. The robotic da Asuncion XI system was primed. After a timeout protocol was performed, the patient had been prepped and draped in standard sterile fashion. The patient was injected with indocyanine green. A 5 mm 0 degrees laparoscopic trocar entry was performed along the left upper quadrant. The abdomen insufflated to 15 mmHg pressure which was tolerated well. Diagnostic laparoscopy demonstrated no injury to bowel viscera or mesentery. The liver surface was unremarkable. Next, two 8 mm robotic ports were placed along the right upper abdomen. The camera 8-mm port was maintained along the epigastrium. Another 8 mm port was placed along the left upper abdominal wall after exchanging the 5 mm port. Please note that the ports were placed at least 10 to 15 cm away from the target anatomy of the gallbladder. The robot was docked along the left lateral abdomen. The patient was repositioned in reverse Trendelenburg position. Using a grasper for arm 3, a grasper for arm 4, including hook cautery for arm 1, the robotic system was docked and primed as described. Instruments were interchanged by the surgical supply assistant including hook cautery, Bovie cautery and clip appliers. I had sat at the console. The gallbladder was scarred with peritoneal adhesions. Lysis of adhesions was performed to free the gallbladder from the surrounding tissues. Next attention was brought to the infundibulum and cystic structures. The infundibulum and cystic duct were dissected free from surrounding tissues. The cystic duct was isolated. FIREFLY was used to identify the cystic artery and cystic structures. A critical view of safety was obtained. Large PLASTIC clips were used throughout the entire case. Using a clip personal lines account manager, 2 clips were placed at the junction of the infundibulum and cystic duct. The cystic duct was divided between clips. Next, the cystic artery was similarly clipped and cauterized. Electro-Bovie cautery was used to remove the gallbladder from the hepatic fossa. Hemostasis was checked and found to be adequate. The robot was undocked. I re-scrubbed into the case. Using a 10 mm Endo Catch bag via the left upper quadrant incision, the specimen was removed from the abdominal cavity. All pneumoperitoneum instruments were evacuated from the abdominal cavity. The incisions were reapproximated using 4-0 Monocryl in an interrupted subcuticular fashion. Fascial defects were less than 8 mm in size. Please note along the trocar sites, local anesthetic was placed as a field block prior to insertion of all instruments. Liquid glue was applied to the skin. At the end of the procedure needle, sponge, and instrument count had been verified correct by the surgical garment assembly supervisor. The patient was transferred to postanesthesia care unit in stable condition. Intraoperative films were shared with the patient's family. Plan - Discharge Summary Discharge Rx Participant: Yes New Discharge Prescriptions: New Acetaminophen Tab [Tylenol Tab] 1,000 mg PO Q6HR PRN #30 tablet PRN Reason: Pain Simethicone 40 mg/0.6 ml Drops [Mylicon Drops] 40 mg PO Q6HR PRN #30 ml PRN Reason: Abdominal Distention Cyclobenzaprine [Flexeril] 10 mg PO TID #30 tab Continue Multivitamins, Thera [Multivitamin (formulary)] 1 tab PO DAILY Albuterol Inhaler [Ventolin Hfa Inhaler] 1 - 2 puff INHALATION RT-Q6H PRN #1 inhaler PRN Reason: Shortness Of Breath Docusate [Colace] 100 mg PO DAILY Cholecalciferol [Vitamin D3 (25 Mcg = 1000 Iu)] 1,000 unit PO DAILY Cyanocobalamin (Vitamin B-12) [Vitamin B-12] 1,000 mcg PO DAILY Pregabalin [Lyrica] 100 mg PO BID Ferrous Sulfate [Feosol] 325 mg PO DAILY Folic Acid 1 mg PO DAILY HYDROcodone/APAP 7.5-325MG [[place] 7.5-325] 1 tab PO Q6HR PRN PRN Reason: Pain Triamcinolone 0.1% Cream [Kenalog 0.1% Cream] 1 applicatio TOPICAL BID PRN #30 gm PRN Reason: Vulvar pruritis Discharge Medication List Albuterol Inhaler [Ventolin Hfa Inhaler] 1 - 2 puff INHALATION RT-Q6H PRN #1 inhaler 04/09/18 [Rx] Multivitamins, Thera [Multivitamin (formulary)] 1 tab PO DAILY 04/09/18 [History] Cholecalciferol [Vitamin D3 (25 Mcg = 1000 Iu)] 1,000 unit PO DAILY 09/16/19 [History] Docusate [Colace] 100 mg PO DAILY 09/16/19 [History] Cyanocobalamin (Vitamin B-12) [Vitamin B-12] 1,000 mcg PO DAILY 02/23/21 [History] Folic Acid 1 mg PO DAILY 02/23/21 [History] HYDROcodone/APAP 7.5-325MG [[place] 7.5-325] 1 tab PO Q6HR PRN 02/23/21 [History] Pregabalin [Lyrica] 100 mg PO BID 02/23/21 [History] Ferrous Sulfate [Feosol] 325 mg PO DAILY 06/21/22 [History] Triamcinolone 0.1% Cream [Kenalog 0.1% Cream] 1 applicatio TOPICAL BID PRN #30 gm 06/21/22 [Rx] Acetaminophen Tab [Tylenol Tab] 1,000 mg PO Q6HR PRN #30 tablet 11/02/22 [Rx] Cyclobenzaprine [Flexeril] 10 mg PO TID #30 tab 11/02/22 [Rx] Simethicone 40 mg/0.6 ml Drops [Mylicon Drops] 40 mg PO Q6HR PRN #30 ml 11/02/22 [Rx] Follow up Appointment(s)/Referral(s): Elaine Valencia MD [STAFF PHYSICIAN] - 11/07/22 (Telehealth) Patient Instructions/Handouts: *[facility] - Laparoscopic Cholecystectomy Discharge Instructions, Laparoscopic Cholecystectomy (GEN) Activity/Diet/Wound Care/Special Instructions: Recommend low-fat diet for the next 2 days. No lifting over 10 pounds in 2 weeks until Nov 16. May shower. No bath tub soaks for two weeks until Nov 16. Diet as tolerated. Use Tylenol, simethicone and ibuprofen or Aleve scheduled for the next 24-48 hours for best pain relief. Use ice along incisions for today to prevent swelling. Discharge Disposition: HOME SELF-CARE
[2022-11-02] MEDS ORDERED: KETOROLAC 15 MG/ML 1 ML VIAL IVP ONE (15:40)
[2022-11-02] MEDS ORDERED: ACETAMINOPHEN TAB 500 MG TAB PO ONE (15:41)
== END 2022-11-02 16:21 | disposition home or self-care (01) ==
LOC: OR 10:32
PROVIDERS: ATTEND Surgery Plastic and Reconstructive Surgery
DX: K81.1 Chronic cholecystitis (principal); K66.0 Peritoneal adhesions (postprocedural) (postinfection); K76.0 Fatty (change of) liver, not elsewhere classified; J45.909 Unspecified asthma, uncomplicated; R16.0 Hepatomegaly, not elsewhere classified; K42.0 Umbilical hernia with obstruction, without gangrene; D64.9 Anemia, unspecified; Z87.59 Personal history of other complications of pregnancy, childbirth and the puerperium; G62.9 Polyneuropathy, unspecified; Z86.19 Personal history of other infectious and parasitic diseases; Z98.51 Tubal ligation status; Z98.890 Other specified postprocedural states; F17.200 Nicotine dependence, unspecified, uncomplicated; Z82.49 Family history of ischemic heart disease and other diseases of the circulatory system; Z83.3 Family history of diabetes mellitus; Z80.3 Family history of malignant neoplasm of breast; Z80.41 Family history of malignant neoplasm of ovary; Z79.51 Long term (current) use of inhaled steroids; Z79.01 Long term (current) use of anticoagulants; Z79.1 Long term (current) use of non-steroidal anti-inflammatories (NSAID); Z79.2 Long term (current) use of antibiotics; Z79.899 Other long term (current) drug therapy
CPT/HCPCS: 88304; 47562; J2250; J0330; J1100; J2710; J0690; J2405; J3010; J1885; J2370; J2704; J1170; J1644; J2001

== ENCOUNTER → 2023-05-14 | Outpatient (CLI) | payer OTHER ==
[2023-05-14 16:40] LABS: Basophils # (A) 0.04 X 10*3/uL (0.00-0.10); Basophils % (A) 0.7 %; Eosinophils # (A) 0.11 X 10*3/uL (0.04-0.35); Eosinophils % (A) 1.8 %; HCT 42.8 % (37.2-46.3); HGB 13.5 d/dL (12.0-15.0); Lymphocytes # (A) 1.71 X 10*3/uL (0.90-5.00); Lymphocytes % (A) 28.5 %; MCH 28.9 pg (27.0-32.0); MCHC 31.5 d/dL (32.0-37.0); MCV 91.6 FL (80.0-97.0); Mean Platelet Volume 9.7 FL (9.5-12.2); Monocytes # (A) 0.38 X 10*3/uL (0.20-1.00); Monocytes % (A) 6.3 %; NRBC Per 100 WBC 0 X 10*3/uL (0.00-0.01); Neutrophils # (A) 3.75 X 10*3/uL (1.80-7.70); Neutrophils % (A) 62.5 %; Platelet Count 490 X 10*3/uL (140-440); RBC 4.67 X 10*6/uL (4.10-5.20); RDW 13.1 % (11.5-14.5)
[2023-05-14 16:50] LABS: ALT 40 U/L (8-44); AST 53 U/L (13-35); Albumin 4.3 d/dL (3.8-4.9); Albumin/Globulin Ratio 1.34 Ratio (1.60-3.17); Alkaline Phosphatase 109 U/L (41-126); Blood Urea Nitrogen 7.5 mg/dL (9.0-27.0); Calcium 10.4 mg/dL (8.7-10.3); Chloride 101 mmol/L (96-109); Globulin 3.2 d/dL (1.6-3.3); Glucose 83 mg/dL (70-110); Potassium 4.5 mmol/L (3.5-5.5); Sodium 140 mmol/L (135-145); Total Bilirubin 0.4 mg/dL (0.3-1.2); Total Protein 7.5 d/dL (6.2-8.2)
== END | disposition home or self-care (01) ==
LOC: LABWHC1 08:34
PROVIDERS: ATTEND Internal Medicine Gastroenterology
DX: K76.0 Fatty (change of) liver, not elsewhere classified (principal)
CPT/HCPCS: 36415; 80053; 85025

== ENCOUNTER → 2023-05-23 | Outpatient (CLI) | payer OTHER ==
[2023-05-23 11:07] VITALS: BP 134/87; PULSE 95; RESP 16; TEMP 98.5
--- NOTE | 2023-05-23 13:38 | P.HPOB ---
History of Present Illness H&P Date: 05/23/23 Chief Complaint: The patient is here for her routine gynecologic exam and ma mmogram. This is a 42-year-old (1 stillborn with one set of twins) with an LMP of 2020. She is status post endometrial ablation 2016 and did have infrequent light menstrual periods after the ablation, but denies any bleeding since 2020. She is experiencing hot flashes. She continues to have vulvar pruritus in the areas of inclusion cysts which have been followed conservatively for several years. She has used the Kenalog cream as needed for pruritus, but would still like removal of her larger inclusion cyst. She has had several cysts lanced or biopsied in the past including one done for adulthood. She is otherwise without gynecologic complaints. Review of Systems She has lost about 13 pounds over the past year and this has been intentional with dietary changes. She denies respiratory or cardiac problems. GI: Occasional nausea without emesis. Past Medical History Past Medical History: Asthma, Musculoskeletal Disorder Additional Past Medical History / Comment(s): anemia, "bulging disc in lower back", neuropathy. Chronic neck and back problems.GALLBLADDER DISORDER. 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 One prior stillbirth and one set of twins. History of Any Multi-Drug Resistant Organisms: None Reported Past Surgical History: Section, Orthopedic Surgery, Tubal Ligation, Uterine Ablation Additional Past Surgical History / Comment(s): Endometrial ablation in 2016. section 2. RT Ankle surgery. COLONOSCOPY(precancerous polyp removed) 04/19/22. Past Anesthesia/Blood Transfusion Reactions: No Reported Reaction Past Psychological History: Anxiety Smoking Status: Current every day smoker (Half a pack per day) Past Alcohol Use History: Occasional (Most days she does not drink, but on occasions she will drink up to a fifth of liquor in a day.), Rare Additional Past Alcohol Use History / Comment(s): SMOKES 1/2 PPD SINCE AGE 16. She states she stopped drinking alcohol in April 2022 because of GI problems. Past Drug Use History: None Reported Additional History: She is single and has been with her boyfriend since 2015. She is disabled. - Past Family History Mother Family Medical History: Hypertension Additional Family Medical History / Comment(s): Maternal uncle has hypertension and a maternal grandmother has diabetes. Maternal aunt had ovarian cancer in a maternal aunt also had breast cancer. Medications and Allergies Home Medications Medication Instructions Recorded Confirmed Type Albuterol Inhaler [Ventolin Hfa 1 - 2 puff INHALATION RT-Q6H PRN 04/09/18 Rx Inhaler] #1 inhaler Multivitamins, Thera [Multivitamin 1 tab PO DAILY 04/09/18 05/23/23 History (formulary)] Cholecalciferol [Vitamin D3 (25 1,000 unit PO DAILY 09/16/19 05/23/23 History Mcg = 1000 Iu)] Cyanocobalamin (Vitamin B-12) 1,000 mcg PO DAILY 02/23/21 05/23/23 History [Vitamin B-12] Folic Acid 1 mg PO DAILY 02/23/21 05/23/23 History HYDROcodone/APAP 7.5-325MG [Outing 1 tab PO Q6HR PRN 02/23/21 05/23/23 History 7.5-325] Pregabalin [Lyrica] 100 mg PO BID 02/23/21 05/23/23 History Ferrous Sulfate [Feosol] 325 mg PO DAILY 06/21/22 05/23/23 History Triamcinolone 0.1% Cream [Kenalog 1 applicatio TOPICAL BID PRN #30 gm 06/21/22 05/23/23 Rx 0.1% Cream] Cyclobenzaprine [Flexeril] 10 mg PO TID #30 tab 11/02/22 05/23/23 Rx Simethicone 40 mg/0.6 ml Drops 40 mg PO Q6HR PRN #30 ml 11/02/22 05/23/23 Rx [Mylicon Drops] Potassium Gluconate [Potassium 600 mg PO DAILY 05/23/23 05/23/23 History (2.5 MEQ = 600 MG)] Allergies Allergy/AdvReac Type Severity Reaction Status Date / Time No Known Allergies Allergy Verified 05/23/23 11:00 Exam Vital Signs Temp Pulse Resp BP Pulse Ox 05/23/23 11:02 98.5 F 95 16 134/87 99 Intake and Output 05/22/23 05/23/23 05/23/23 22:59 06:59 14:59 Other: Weight 71.214 kg Height 5 feet 3 inches, weight 157 pounds, BMI 27.8. This is a well-developed well-nourished black female who is alert and oriented times 3 in no acute distress. She is slow moving to get on and off the exam table from apparent back pains. HEENT: Within normal limits. NECK: Supple without mass or thyromegaly. CHEST AND LUNGS: Clear to auscultation. HEART: Regular rate and rhythm. BREASTS: Are without mass or discharge. AXILLARY EXAM: Negative for adenopathy. BACK: Negative for CVA tenderness. ABDOMEN: Soft, nontender, without palpable masses. PELVIC EXAM: External genitalia reveals 3 inclusion cysts. The largest one is on the left labia and measures approximately 1 x 1.5 cm. There is a smaller one on the left labia measuring approximately 8 mm and another one on the right labia measuring approximately 7 mm. Each feels firm and nontender with a whitish surface with a crevice on the surface consistent with a previous lancing of the cyst. These all have a benign appearance Cervix and vagina appear normal. There is no unusual discharge. There is no evidence of prolapse. The uterus is midposition, nongravid size and nontender. There are no palpable adnexal masses or tenderness. RECTAL EXAM: Rectovaginal exam is negative for mass or tenderness and is negative for occult blood. EXTREMITIES: Nontender. IMPRESSION: 1. 42-year-old perimenopausal female status post endometrial ablation with 2 years of amenorrhea and mild vasomotor symptoms. 2. Multiple labial inclusion cysts which have been chronic and has been lanced in the past. These are associated with vulvar pruritus. She is requesting to have these lanced or removed to see if this helps with the pruritus. 3. Previous Pap smear showed ASCUS with negative high-risk HPV testing on 03/08/2021. PLAN: 1. Pap smear cotest was performed. 2. Self breast awareness was discussed with the patient. 3. Screening mammogram was done today. 4. The patient will be scheduled to have the largest labial inclusion cyst lanced. She understands this may recur and may not be helpful for her symptoms. In the meantime she will use Kenalog cream as directed. She states she does have enough to continue without an additional prescription. 5. She states she is due for a colonoscopy because of her removal of precancerous polyps last year. She will schedule this appointment with Dr. Rosen. 6. She was advised to return in one year for her annual well woman exam and as needed.
--- NOTE | 2023-05-24 08:31 | MM ---
Reason for Exam: Screening (asymptomatic). Last mammogram was performed 1 year(s) and 1 month(s) ago. Patient History: Menarche at age 8. First Full-Term at age 21. Premenopausal. Maternal aunt had breast cancer under age 50. Maternal aunt had breast cancer at or over age 50. Maternal aunt had breast cancer. Risk Values: Trinity 5 year model risk: 0.6%. NCI Lifetime model risk: 9.7%. Prior Study Comparison: 04/12/2021 Bilateral Screening Mammogram, [facility]. 04/26/2022 Bilateral MG diagnostic mammo w CAD [facility], [facility]. Tissue Density: The breast tissue is almost entirely fat. Findings: Analyzed By CAD. There is no suspicious group of microcalcifications or new suspicious mass in either breast. Overall Assessment: Negative, BI-RAD 1 Management: Screening Mammogram of both breasts in [address] [facility] will attempt to contact patient to return for supplemental views and ultrasound if indicated. Patient should continue monthly self-breast exams. A clinical breast exam by your physician is recommended on an annual basis. This exam should not preclude additional follow-up of suspicious palpable abnormalities. Note on Trinity scores and lifetime risk: 1. A Trinity score greater than 3% is considered moderate risk. If this is the case, consider specialist referral to assess eligibility for a risk reducing agent. 2. If overall lifetime risk for the development of breast cancer is 20% or higher, the patient may qualify for future screening with alternating mammogram and breast MRI. Electronically signed and approved by: Eugene Way DO
== END ==
LOC: WWCWWP 10:37
PROVIDERS: ATTEND Obstetrics & Gynecology
DX: Z12.31 Encounter for screening mammogram for malignant neoplasm of breast (principal); J45.909 Unspecified asthma, uncomplicated; F17.210 Nicotine dependence, cigarettes, uncomplicated; Z01.411 Encounter for gynecological examination (general) (routine) with abnormal findings; Z80.3 Family history of malignant neoplasm of breast
CPT/HCPCS: 77067

== ENCOUNTER 2023-05-28 23:34 | Inpatient (IN) | payer OTHER ==
[2023-05-28 23:40] VITALS: RESP 18; TEMP 99.3
[2023-05-29] MEDS ORDERED: SODIUM CHLORIDE 0.9% 1,000 ML IV STA (00:32)
[2023-05-29] MEDS ORDERED: methocarbamoL 500 MG TAB PO STA (00:34)
[2023-05-29 00:50] LABS: ALT 72 U/L (4-34); AST 140 U/L (14-36); African American GFR (CKD) >90 (>60 ml/min/1.73 sqM); Albumin 4.3 g/dL (3.5-5.0); Alkaline Phosphatase 94 U/L (38-126); Anion Gap 16 mmol/L; Blood Urea Nitrogen 9 mg/dL (7-17); Carbon Dioxide 21 mmol/L (22-30); Chloride 108 mmol/L (98-107); Glucose 91 mg/dL (74-99); Non-African American GFR(CKD) >90 (>60 ml/min/1.73 sqM); Potassium 3.3 mmol/L (3.5-5.1); Sodium 145 mmol/L (137-145); Total Bilirubin 0.4 mg/dL (0.2-1.3); Total Protein 7.7 g/dL (6.3-8.2)
[2023-05-29 00:53] LABS: Partial Thromboplastin Time 26.6 sec (22.0-30.0); Prothrombin Time 10.5 sec (9.0-12.0)
[2023-05-29 01:19] LABS: Alcohol 239 mg/dL
[2023-05-29 01:22] LABS: Basophils % (A) 0 %; Eosinophils # (A) 0.1 k/uL (0-0.7); Eosinophils % (A) 3 %; HCT 41.7 % (34.0-46.0); HGB 13.8 gm/dL (11.4-16.0); Lymphocytes # (A) 2.6 k/uL (1.0-4.8); Lymphocytes % (A) 58 %; MCH 29.4 pg (25.0-35.0); MCHC 33.1 g/dL (31.0-37.0); MCV 88.8 fL (80.0-100.0); Mean Platelet Volume 7.9; Monocytes # (A) 0.2 k/uL (0-1.0); Monocytes % (A) 5 %; Neutrophils # (A) 1.4 k/uL (1.3-7.7); Neutrophils % (A) 30 %; Platelet Count 303 k/uL (150-450); RBC 4.69 m/uL (3.80-5.40); RDW 13.6 % (11.5-15.5); WBC 4.5 k/uL (3.8-10.6)
[2023-05-29 02:06] LABS: Appearance,Urine Clear (Clear); Bilirubin,Urine Negative (Negative); Blood,Urine Negative (Negative); Color,Urine Yellow; Glucose,Urine (UA) Negative (Negative); Ketones,Urine Negative (Negative); Leukocyte Esterase,Urine Negative (Negative); Nitrite,Urine Negative (Negative); PH, Urine 5.5 (5.0-8.0); Protein,Urine Trace (Negative); Specific Gravity,Urine 1.026 (1.001-1.035); Urobilinogen,Urine <2.0 mg/dL (<2.0)
--- NOTE | 2023-05-29 03:04 | CT ---
EXAM: CT Angiography Head With Intravenous Contrast CLINICAL HISTORY: ITS.REASON CT Reason: Neuro deficit, acute, stroke suspected TECHNIQUE: Axial computed tomographic angiography images of the head with intravenous contrast. CTDI is 24.5 mGy and DLP is 541.7 mGy-cm. This CT exam was performed using one or more of the following dose reduction techniques: automated exposure control, adjustment of the mA and/or kV according to patient size, and/or use of iterative reconstruction technique. MIP reconstructed images were created and reviewed. COMPARISON: No relevant prior studies available. FINDINGS: Right internal carotid artery: Intracranial segment is patent with no significant stenosis. No aneurysm. Right anterior cerebral artery: No occlusion or significant stenosis. No aneurysm. Right middle cerebral artery: No occlusion or significant stenosis. No aneurysm. Right posterior cerebral artery: No occlusion or significant stenosis. No aneurysm. Right vertebral artery: Unremarkable. Left internal carotid artery: Intracranial segment is patent with no significant stenosis. No aneurysm. Left anterior cerebral artery: No occlusion or significant stenosis. No aneurysm. Left middle cerebral artery: No occlusion or significant stenosis. No aneurysm. Left posterior cerebral artery: No occlusion or significant stenosis. No aneurysm. Left vertebral artery: Unremarkable. Basilar artery: No occlusion or significant stenosis. No aneurysm. IMPRESSION: No significant stenosis. EXAM: CT Angiography Neck With Intravenous Contrast CLINICAL HISTORY: ITS.REASON CT Reason: Neuro deficit, acute, stroke suspected TECHNIQUE: Axial computed tomographic angiography images of the neck with intravenous contrast. CTDI is 24.5 mGy and DLP is 541.7 mGy-cm. This CT exam was performed using one or more of the following dose reduction techniques: automated exposure control, adjustment of the mA and/or kV according to patient size, and/or use of iterative reconstruction technique. MIP reconstructed images were created and reviewed. COMPARISON: No relevant prior studies available. FINDINGS: VASCULATURE: Right common carotid artery: No significant stenosis. No dissection. Right internal carotid artery: Extracranial has no significant stenosis. No dissection. Right vertebral artery: No significant stenosis. No dissection. Left common carotid artery: No significant stenosis. No dissection. Left internal carotid artery: Extracranial has no significant stenosis. No dissection. Left vertebral artery: No significant stenosis. No dissection. NECK: Bones/joints: No acute fracture. No dislocation. Multiple tiny nodular opacities in the bilateral upper lobes. CAROTID STENOSIS REFERENCE USING NASCET CRITERIA: % ICA stenosis = (1 - narrowest ICA diameter/diameter of distal cervical ICA) x 100. Mild - <50% stenosis. Moderate - 50-69% stenosis. Severe - 70-94% stenosis. Near occlusion - 95-99% stenosis. Occluded - 100% stenosis. IMPRESSION: No significant stenosis. Multiple tiny nodular opacities in the bilateral upper lobes. Correlate with infectious/inflammatory process.
--- NOTE | 2023-05-29 03:06 | XR ---
EXAM: XR Chest, 2 Views CLINICAL HISTORY: ITS.REASON XR Reason: altered mental status TECHNIQUE: Frontal and lateral views of the chest. COMPARISON: No relevant prior studies available. FINDINGS: Lungs: No consolidation or mass. Pleural space: No effusion. Heart: No cardiomegaly. Bones/joints: No acute findings. IMPRESSION: No acute cardiopulmonary process.
--- NOTE | 2023-05-29 03:06 | CT ---
EXAM: CT Lumbar Spine Without Intravenous Contrast CLINICAL HISTORY: ITS.REASON CT Reason: left sided numbness/pain TECHNIQUE: Axial computed tomography images of the lumbar spine without intravenous contrast. CTDI is 32.5 mGy and DLP is 1077.6 mGy-cm. This CT exam was performed using one or more of the following dose reduction techniques: automated exposure control, adjustment of the mA and/or kV according to patient size, and/or use of iterative reconstruction technique. COMPARISON: No relevant prior studies available. FINDINGS: Vertebrae: No acute fracture. No subluxation. Discs/spinal canal/neural foramina: No significant spinal canal stenosis. Mild bilateral L4-5 foraminal stenosis. Soft tissues: Unremarkable. IMPRESSION: No acute fracture. Mild bilateral L4-5 foraminal stenosis.
--- NOTE | 2023-05-29 03:56 | CT ---
EXAM: CT Head Without Intravenous Contrast CLINICAL HISTORY: ITS.REASON CT Reason: Neuro deficit, acute, stroke suspected TECHNIQUE: Axial computed tomography images of the head/brain without intravenous contrast. CTDI is 24.5 mGy and DLP is 541 mGy-cm. This CT exam was performed using one or more of the following dose reduction techniques: automated exposure control, adjustment of the mA and/or kV according to patient size, and/or use of iterative reconstruction technique. COMPARISON: No relevant prior studies available. FINDINGS: Brain: No hemorrhage or mass effect. Ventricles: No hydrocephalus. Bones/joints: Unremarkable. Soft tissues: Unremarkable. Sinuses: No air fluid level. Since centimeters retention cyst Mastoid air cells: Clear. IMPRESSION: No acute hemorrhage, hydrocephalus, or mass effect.
[2023-05-29] MEDS ORDERED: NALOXONE 0.4 MG/ML 1 ML VIAL IV PRN (04:26)
[2023-05-29] MEDS ORDERED: ONDANSETRON 4 MG/2 ML VIAL IVP PRN (04:26)
[2023-05-29] MEDS ORDERED: ASPIRIN 325 MG TAB PO STA (04:28)
--- NOTE | 2023-05-29 04:31 | ED ---
General Adult HPI - General Chief complaint: Neuro Symptoms/Deficit Stated complaint: Loosing feeling on left side Time Seen by Provider: 05/29/23 00:07 Source: patient, family, RN notes reviewed, old records reviewed Mode of arrival: wheelchair Limitations: no limitations - History of Present Illness Initial comments: Patient is a 42-year-old female presents emergency Department complaining of a 2 day history of neurological deficits. 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 States it started suddenly. Unknown cause. States she feels like she has decreased sensation in the left upper extremity as well as left lower extremity as well as weakness and pain. Unknown etiology. 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 Is due to receive an MRI outpatient at some point. Denies any saddle anesthesias. Denies any urinary or bowel incontinence or retention. Denies any paralysis of the lower extremities. Does endorse drinking alcohol this evening and states she is been doing it for the pain. Denies any other acute complaints including chest pain, shortness of breath, abdominal pain, nausea, vomiting. States the pain seems to radiate from her spine out words down her left arm as well as leg. Denies any facial numbness or weakness. Presents for further evaluation at this time. - Related Data Home Medications Medication Instructions Recorded Confirmed Multivitamins, Thera [Multivitamin 1 tab PO DAILY 04/09/18 05/23/23 (formulary)] Cholecalciferol [Vitamin D3 (25 1,000 unit PO DAILY 09/16/19 05/23/23 Mcg = 1000 Iu)] Cyanocobalamin (Vitamin B-12) 1,000 mcg PO DAILY 02/23/21 05/23/23 [Vitamin B-12] Folic Acid 1 mg PO DAILY 02/23/21 05/23/23 HYDROcodone/APAP 7.5-325MG [Hill 1 tab PO Q6HR PRN 02/23/21 05/23/23 7.5-325] Pregabalin [Lyrica] 100 mg PO BID 02/23/21 05/23/23 Ferrous Sulfate [Feosol] 325 mg PO DAILY 06/21/22 05/23/23 Potassium Gluconate [Potassium 600 mg PO DAILY 05/23/23 05/23/23 (2.5 MEQ = 600 MG)] Previous Rx's Medication Instructions Recorded Albuterol Inhaler [Ventolin Hfa 1 - 2 puff INHALATION RT-Q6H PRN 04/09/18 Inhaler] #1 inhaler Triamcinolone 0.1% Cream [Kenalog 1 applicatio TOPICAL BID PRN #30 gm 06/21/22 0.1% Cream] Cyclobenzaprine [Flexeril] 10 mg PO TID #30 tab 11/02/22 Simethicone 40 mg/0.6 ml Drops 40 mg PO Q6HR PRN #30 ml 11/02/22 [Mylicon Drops] Allergies Allergy/AdvReac Type Severity Reaction Status Date / Time No Known Allergies Allergy Verified 05/28/23 23:40 Review of Systems ROS Statement: Those systems with pertinent positive or pertinent negative responses have been documented in the HPI. Review of Systems: CONST: Denies fever EYES: Denies blurry vision ENT: Denies nasal congestion C/V: Denies Chest pain RESP: Denies shortness of breath GI: Denies abdominal pain : Denies dysuria SKIN: Denies rash. MSK: Endorses left upper extremity and left lower extremity pain which she describes as a burning sensation. NEURO: Endorses numbness, weakness in left upper extremity and left lower extremity. Endorses pain in the left upper extremity and left lower extremity. ROS Other: All systems not noted in ROS Statement are negative. Past Medical History Past Medical History: Asthma, Musculoskeletal Disorder Additional Past Medical History / Comment(s): anemia, "bulging disc in lower back", neuropathy. Chronic neck and back problems. 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 One prior stillbirth and one set of twins. GALLBLADDER DISORDER History of Any Multi-Drug Resistant Organisms: None Reported Past Surgical History: Section, Orthopedic Surgery, Tubal Ligation, Uterine Ablation Additional Past Surgical History / Comment(s): Endometrial ablation in 2017. section 2. RT Ankle surgery. COLONOSCOPY 04/19/22 Past Anesthesia/Blood Transfusion Reactions: No Reported Reaction Past Psychological History: Anxiety Smoking Status: Current every day smoker Past Alcohol Use History: Rare Past Drug Use History: None Reported - Past Family History Mother Family Medical History: Hypertension Additional Family Medical History / Comment(s): Maternal uncle has hypertension and a maternal grandmother has diabetes. Maternal aunt had ovarian cancer in a maternal aunt also had breast cancer. General Exam - General Exam Comments Initial Comments: General: Appears in no acute distress. HEAD: Normal with no signs of head trauma. EYES: PERRLA, EOMI, conjunctiva normal, no discharge. Pupils 3 mm equal bilaterally. ENT: Hearing grossly intact, normal oropharynx. RESPIRATORY: Clear breath sounds bilaterally. No wheezes, rales, or rhonchi. C/V: Regular rate and rhythm. S1 and S2 auscultated, no edema, peripheral pulses 2+ and intact throughout ABD: Abd is soft, nontender, nondistended EXT: Normal range of motion, no obvious deformity SKIN: No rashes or lesions observed on exposed skin. NEURO: Alert and oriented 4. Cranial nerves II through XII are intact. NIH is technically 3 for loss of sensation on the left upper extremity and left lower extremity with left upper extremity being more acute. 1 for weakness in the left lower extremity drift. As well as 1 for ataxia in the left lower extremity. Limitations: no limitations Course Vital Signs 05/28/23 05/29/23 23:38 04:28 Temperature 99.3 F Pulse Rate 118 H Respiratory 18 18 Rate Blood Pressure 147/75 119/83 O2 Sat by Pulse 97 96 Oximetry Medical Decision Making - Medical Decision Making Was pt. sent in by a medical professional or institution ([facility], CLAIM BENEFIT SPECIALIST, urgent care, hospital, or residential...) When possible be specific @ -No Did you speak to anyone other than the patient for history (EMS, parent, family, police, friend...)? What history was obtained from this source @ -No Did you review nursing and triage notes (agree or disagree)? Why? @ -I reviewed and agree with nursing and triage notes Were old charts reviewed (outside hosp., previous admission, EMS record, old EKG, old radiological studies, urgent care reports/EKG's, residential records)? Report findings @ -No old charts were reviewed Differential Diagnosis (chest pain, altered mental status, abdominal pain women, abdominal pain men, vaginal bleeding, weakness, fever, dyspnea, syncope, headache, dizziness, GI bleed, back pain, seizure, CVA, palpatations, mental health, musculoskeletal)? @ -Differential CVA Ischemic stroke, hemorrhagic stroke, brain tumor, atypical migraine, Wernicke's encephalopathy, seizure, multiple sclerosis, meningitis, encephalitis, hypoglycemia, Guillain-Vega, electrolytes disturbance, myasthenia gravis.... This is not meant to be an all-inclusive list EKG interpreted by me (3pts min.). @ -As above X-rays interpreted by me (1pt min.). @ -X-ray reveals no obvious acute cardio pulmonary process. CT interpreted by me (1pt min.). @ -CT of the brain, lumbar spine, CT of the brain reveals no obvious acute intracranial process, bleed, stroke. Lumbar spine CT reveals mild stenosis at the L4-L5 foramen U/S interpreted by me (1pt. min.). @ -None done What testing was considered but not performed or refused? (CT, X-rays, U/S, labs)? Why? @ -None What meds were considered but not given or refused? Why? @ -None Did you discuss the management of the patient with other professionals (professionals i.e. , PA, CLAIM BENEFIT SPECIALIST, lab, RT, psych nurse, social work therapist, copyist, teacher, railway patrol officer, warehouse operations manager)? Give summary @ -Discussed with Elodia of [facility] accepted the admission. Was smoking cessation discussed for >3mins.? @ -No Was critical care preformed (if so, how long)? @ -No Were there social determinants of health that impacted care today? How? ( Homelessness, low income, unemployed, alcoholism, drug addiction, transportation, low edu. Level, literacy, decrease access to med. care, residential, rehab)? @ -No Was there de-escalation of care discussed even if they declined (Discuss DNR or withdrawal of care, Hospice)? DNR status @ -No What co-morbidities impacted this encounter? (DM, HTN, Smoking, COPD, CAD, Cancer, CVA, ARF, Chemo, Hep., AIDS, mental health diagnosis, sleep apnea, morbid obesity)? @ -Neuropathy, degenerative spine disease Was patient admitted / discharged? Hospital course, mention meds given and route, prescriptions, significant lab abnormalities, going to OR and other pertinent info. @ -Based on the patient's presentation and physical exam, she presents with neuro deficits and an NIH of technically 3 with new neuro deficits involving the left upper extremity associated with pain, numbness, weakness. Symptoms have been ongoing for 48 hours. Relatively sudden onset. I did discuss with the differential includes CVA versus possible radiculopathy. We will obtain a stroke workup at this time. She does not make criteria for activation his symptoms have been ongoing for 48 hours. She is not a TPA candidate. She expressed understanding was in agreement this plan. She does endorse drinking alcohol and states that she will have a high level as she has been using this to help dull the pain. Vital signs within acceptable limits. Patient's imaging is unremarkable. Labs are remarkable for a call level of 239. Patient is mildly hypokalemic at 3.3 which will be replenished. Remainder the labs are within acceptable limits. On reevaluation, neuro exam unchanged. I did recommend we admitted to the hospital for further evaluation this time with the sudden new deficits as CVA is still in the differential and likely MRI. She was in agreement with this plan. Neurology will be consulted. I spoke with the admitting physician, ANTIONETTE Krishna of [facility] who accepted the patient. Undiagnosed new problem with uncertain prognosis? @ -No Drug Therapy requiring intensive monitoring for toxicity (Heparin, Nitro, Insulin, Cardizem)? @ -No Were any procedures done? @ -No Diagnosis/symptom? @ -Acute neuro deficits, CVA versus radiculopathy versus other neuropathy Acute, or Chronic, or Acute on Chronic? @ -Acute Uncomplicated (without systemic symptoms) or Complicated (systemic symptoms)? @ -Complicated Side effects of treatment? @ -No Exacerbation, Progression, or Severe Exacerbation? @ -No Poses a threat to life or bodily function? How? (Chest pain, USA, AR, pneumonia, PE, COPD, DKA, ARF, appy, cholecystitis, CVA, Diverticulitis, Homicidal, Suicidal, threat to staff... and all critical care pts) @ -Yes - Lab Data Result diagrams: 05/29/23 00:20 05/29/23 00:20 Lab Results 05/29/23 05/29/23 05/29/23 Range/Units 00:20 00:20 00:20 WBC 4.5 (3.8-10.6) k/uL RBC 4.69 (3.80-5.40) m/uL Hgb 13.8 (11.4-16.0) gm/dL Hct 41.7 (34.0-46.0) % MCV 88.8 (80.0-100.0) fL MCH 29.4 (25.0-35.0) pg MCHC 33.1 (31.0-37.0) g/dL RDW 13.6 (11.5-15.5) % Plt Count 303 (150-450) k/uL MPV 7.9 Neutrophils % 30 % Lymphocytes % 58 % Monocytes % 5 % Eosinophils % 3 % Basophils % 0 % Neutrophils # 1.4 (1.3-7.7) k/uL Lymphocytes # 2.6 (1.0-4.8) k/uL Monocytes # 0.2 (0-1.0) k/uL Eosinophils # 0.1 (0-0.7) k/uL Basophils # 0.0 (0-0.2) k/uL PT 10.5 (9.0-12.0) sec INR 1.0 (<1.2) APTT 26.6 (22.0-30.0) sec Sodium 145 (137-145) mmol/L Potassium 3.3 L (3.5-5.1) mmol/L Chloride 108 H (98-107) mmol/L Carbon Dioxide 21 L (22-30) mmol/L Anion Gap 16 mmol/L BUN 9 (7-17) mg/dL Creatinine 0.54 (0.52-1.04) mg/dL Est GFR (CKD-EPI)AfAm >90 (>60 ml/min/1.73 sqM) Est GFR (CKD-EPI)NonAf >90 (>60 ml/min/1.73 sqM) Glucose 91 (74-99) mg/dL Calcium 9.0 (8.4-10.2) mg/dL Total Bilirubin 0.4 (0.2-1.3) mg/dL AST 140 H (14-36) U/L ALT 72 H (4-34) U/L Alkaline Phosphatase 94 (38-126) U/L Total Protein 7.7 (6.3-8.2) g/dL Albumin 4.3 (3.5-5.0) g/dL Urine Color Urine Appearance (Clear) Urine pH (5.0-8.0) Ur Specific [place] (1.001-1.035) Urine Protein (Negative) Urine Glucose (UA) (Negative) Urine Ketones (Negative) Urine Blood (Negative) Urine Nitrite (Negative) Urine Bilirubin (Negative) Urine Urobilinogen (<2.0) mg/dL Ur Leukocyte Esterase (Negative) Serum Alcohol 239 H* mg/dL 05/29/23 Range/Units 01:51 WBC (3.8-10.6) k/uL RBC (3.80-5.40) m/uL Hgb (11.4-16.0) gm/dL Hct (34.0-46.0) % MCV (80.0-100.0) fL MCH (25.0-35.0) pg MCHC (31.0-37.0) g/dL RDW (11.5-15.5) % Plt Count (150-450) k/uL MPV Neutrophils % % Lymphocytes % % Monocytes % % Eosinophils % % Basophils % % Neutrophils # (1.3-7.7) k/uL Lymphocytes # (1.0-4.8) k/uL Monocytes # (0-1.0) k/uL Eosinophils # (0-0.7) k/uL Basophils # (0-0.2) k/uL PT (9.0-12.0) sec INR (<1.2) APTT (22.0-30.0) sec Sodium (137-145) mmol/L Potassium (3.5-5.1) mmol/L Chloride (98-107) mmol/L Carbon Dioxide (22-30) mmol/L Anion Gap mmol/L BUN (7-17) mg/dL Creatinine (0.52-1.04) mg/dL Est GFR (CKD-EPI)AfAm (>60 ml/min/1.73 sqM) Est GFR (CKD-EPI)NonAf (>60 ml/min/1.73 sqM) Glucose (74-99) mg/dL Calcium (8.4-10.2) mg/dL Total Bilirubin (0.2-1.3) mg/dL AST (14-36) U/L ALT (4-34) U/L Alkaline Phosphatase (38-126) U/L Total Protein (6.3-8.2) g/dL Albumin (3.5-5.0) g/dL Urine Color Yellow Urine Appearance Clear (Clear) Urine pH 5.5 (5.0-8.0) Ur Specific [place] 1.026 (1.001-1.035) Urine Protein Trace H (Negative) Urine Glucose (UA) Negative (Negative) Urine Ketones Negative (Negative) Urine Blood Negative (Negative) Urine Nitrite Negative (Negative) Urine Bilirubin Negative (Negative) Urine Urobilinogen <2.0 (<2.0) mg/dL Ur Leukocyte Esterase Negative (Negative) Serum Alcohol mg/dL - EKG Data -: EKG Interpreted by Me EKG Comments: 12-lead Electrocardiogram Interpretation Note EKG was reviewed and interpreted by myself. 12-lead ECG performed at [facility] is interpreted by me as revealing normal sinus rhythm at a rate of 93 beats per minute. [place] is normal. [place] interval is 143 ms, cheondoism is a 80 ms, QTc is 400 ms.. There were no ST or T wave abnormalities to suggest myocardial ischemia or injury. R wave progression across the precordium was satisfactory. By my interpretation this EKG is non-diagnostic for acute ischemia. Disposition Clinical Impression: Weakness, Sensory deficit, left, Alcohol intoxication Narrative: CVA vs. Neuropathy vs. Radiculopathy Disposition: ADMITTED IP TO THIS HOSP Condition: Stable Time of Disposition: 03:55
[2023-05-29] MEDS: MORPHINE SULFATE 4 MG/ML SYRINGE IV PRN ×2 (06:21→10:04)
[2023-05-29] MEDS ORDERED: POTASSIUM CHLORIDE ER 20 MEQ TAB.ER PO STA (06:48)
[2023-05-29] MEDS ORDERED: AMMONIUM LACTATE 12% LOTION 225 GM BTL TOPICAL PRN (09:19)
[2023-05-29] MEDS ORDERED: TIMOLOL 0.5% OPHTH DROPS 5 ML BTL RIGHT EYE SCH (09:30)
[2023-05-29] MEDS ORDERED: MULTIVITAMINS, THERA 1 EACH TAB PO SCH (09:30)
[2023-05-29] MEDS ORDERED: FOLIC ACID 1 MG TAB PO SCH (09:30)
[2023-05-29] MEDS ORDERED: CHOLECALCIFEROL 25 MCG (1000 IU) TABLET PO SCH (09:30)
[2023-05-29] MEDS ORDERED: FERROUS SULFATE 325 MG TAB PO SCH (09:30)
[2023-05-29] MEDS ORDERED: CYANOCOBALAMIN 500 MCG TAB PO SCH (09:30)
[2023-05-29 10:36] LABS: African American GFR (CKD) >90 (>60 ml/min/1.73 sqM); Anion Gap 6 mmol/L; Blood Urea Nitrogen 8 mg/dL (7-17); Calcium 8.1 mg/dL (8.4-10.2); Carbon Dioxide 27 mmol/L (22-30); Chloride 106 mmol/L (98-107); Glucose 92 mg/dL (74-99); Non-African American GFR(CKD) >90 (>60 ml/min/1.73 sqM); Potassium 3.6 mmol/L (3.5-5.1); Sodium 139 mmol/L (137-145)
[2023-05-29] MEDS ORDERED: Magnesium Replacement Protocol 1 EACH MISC MISCELLANE PRN (13:11)
--- NOTE | 2023-05-29 14:02 | P.CNNES ---
History of Present Illness Consult date: 05/29/23 Requesting physician: Zachary Wells Reason for Consult: neuro deficits, CVA vs. peripheral neuropathy x2days History of Present Illness: Patient is a 42-year-old right-handed female with history of peripheral neuropat hy came to the hospital yesterday at 11:34 PM after she was losing feeling in the left leg. Patient states that she was diagnosed with neuropathy in the feet in the last couple years. Patient states that she came to the hospital ago she was losing feeling in the left lower leg from knee down. She has been having these symptoms for "months" off and on, about once or twice a week lasting for a few minutes, but in the last 2 or 3 days it has been constant. It is the same symptoms as her neuropathy in the feet. Patient says that she uses cane for assistance for balance related to her neuropathy. Patient has undergone EMG and nerve conductions of upper and lower extremities by Dr. Tremayne Bearden in the last couple months. However she has changed neurologist and is following up with neurologist in [place]. The neurologist has scheduled an MRI of the cervical and lumbar spine, which was scheduled for today, but she came to the hospital. She needs to reschedule that MRI. Sometimes the symptoms also involves the left arm "off and on". Last night her symptoms in the left leg fel t as if it was "trying to wake up". Patient denies any slurred speech, any facial droop or any visual symptoms although sometimes she feels blurred vision at times. She denies diabetes, does have borderline blood pressure and also has hyperlipidemia. She has smoked half pack per day for 20 years. Patient also has been drinking fairly heavily for last 10 years. She would drink between a pint to a fifth or even half-gallon vodka, gin rum or beers. She is to drink it every day for last 1 year. She is planning to quit. She denies any drug use. Denies any marijuana use. Vital signs on arrival blood pressure 147/75, pulse rate 118, temperature 99.3. Blood test shows normal CBC PT/PTT, normal sodium, potassium 3.3 normal renal functions, AST 140 ALT 72. UA is negative. Blood alcohol level 239. CT head revealed no acute process. EKG shows normal sinus rhythm, chest x-ray normal. CT of the lumbar spine showed no acute fracture. Mild bilateral L4-L5 foraminal stenosis. CTA of head and neck are normal. Multiple tiny nodular opacities in the bilateral upper lobes. Correlate with infectious/inflammatory process. Internal medicine to address lung abnormalities. Home medications include multivitamins, B12, Lyrica 100 mg twice a day, folic acid 1 mg, [place], ferrous sulfate, potassium, Zanaflex and vitamin D3. Also takes vitamin B-12 for last 1 year. Review of Systems Constitutional: Denies chills, Denies fever Eyes: denies blurred vision, denies pain Past Medical History Past Medical History: Asthma, Musculoskeletal Disorder Additional Past Medical History / Comment(s): anemia, "bulging disc in lower back", neuropathy. Chronic neck and back problems. 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 One prior stillbirth and one set of twins. GALLBLADDER DISORDER History of Any Multi-Drug Resistant Organisms: None Reported Past Surgical History: Section, Orthopedic Surgery, Tubal Ligation, Uterine Ablation Additional Past Surgical History / Comment(s): Endometrial ablation in 2017. section 2. RT Ankle surgery. COLONOSCOPY 04/19/22 Past Anesthesia/Blood Transfusion Reactions: No Reported Reaction Past Psychological History: Anxiety Smoking Status: Current every day smoker Past Alcohol Use History: Rare Past Drug Use History: None Reported - Past Family History Mother Family Medical History: Hypertension Additional Family Medical History / Comment(s): Maternal uncle has hypertension and a maternal grandmother has diabetes. Maternal aunt had ovarian cancer in a maternal aunt also had breast cancer. Medications and Allergies Home Medications Medication Instructions Recorded Confirmed Type Multivitamins, Thera [Multivitamin 1 tab PO DAILY 04/09/18 05/29/23 History (formulary)] Cyanocobalamin (Vitamin B-12) 1,000 mcg PO DAILY 02/23/21 05/29/23 History [Vitamin B-12] Folic Acid 1 mg PO DAILY 02/23/21 05/29/23 History HYDROcodone/APAP 7.5-325MG [[place] 1 tab PO TID PRN 02/23/21 05/29/23 History 7.5-325] Pregabalin [Lyrica] 100 mg PO BID 02/23/21 05/29/23 History Ferrous Sulfate [Feosol] 325 mg PO DAILY 06/21/22 05/29/23 History Ammonium Lactate Lotion 1 applic TOPICAL BID PRN 05/29/23 05/29/23 History [Lac-Hydrin 12% Lotion] Cholecalciferol (Vitamin D3) 75 mcg PO DAILY 05/29/23 05/29/23 History [Vitamin D3 (3000 Iu)] Potassium Chloride [Klor-Con 10 ER] 10 meq PO DAILY 05/29/23 05/29/23 History Thiamine [Vitamin B-1] 100 mg PO DAILY #30 tablet 05/29/23 Rx Timolol 0.5% Ophth Soln [Timoptic 1 drop RIGHT EYE BID 05/29/23 05/29/23 History 0.5% Ophth Soln] tiZANidine HCL [Zanaflex] 2 mg PO TID 05/29/23 05/29/23 History Allergies Allergy/AdvReac Type Severity Reaction Status Date / Time No Known Allergies Allergy Verified 05/29/23 07:58 Physical Examination - Vital Signs Vital Signs: Vital Signs Temp Pulse Resp BP Pulse Ox 05/29/23 12:31 87 18 149/89 97 05/29/23 09:11 82 18 144/93 95 05/29/23 04:28 18 119/83 96 05/28/23 23:38 99.3 F 118 H 18 147/75 97 Intake and Output 05/28/23 05/29/23 05/29/23 22:59 06:59 14:59 Other: Weight 71.214 kg Patient is a middle aged Afro-Tongan female, in no acute distress. Patient is alert awake oriented to time place and person. Speech and language functions are normal. Patient can name and repeat very well. No aphasia or dysarthria. Attention, concentration and fund of knowledge is adequate. On cranial nerve examination, pupils are equal, round and reacting to light, visual guevara are full on confrontation, with no neglect on double simultaneous stimulation. Extraocular muscles are intact with no nystagmus. Face is symmetric, tongue protrudes to the midline. Palatal elevation and sensation normal, hearing and shoulder shrug normal, facial sensation normal. On muscle strength testing, there is no pronator drift and the strength is normal in arms and legs distally and proximally. She has hyperesthesia at the dorsum of foot, therefore was hurting for checking ankle dorsiflexion. Deep tendon reflexes are symmetric, biceps 2, brachioradialis 2, knees 1+, ankl es 1 and plantars are downgoing bilaterally. Sensory to touch produces hyperesthesia in bilateral dorsum of the foot, also some sensitivity in the lower legs. Patient was noticing decreased sensation in the left lower leg anteriorly as compared to the right leg, but was equal bilaterally posteriorly in the lower legs. Sensations equal in the upper limbs. Cerebellar function showed no ataxia for [id number] testing. No dysdiadochokinesia. No ataxia for [id number] testing on either side. Tone and bulk of muscles normal. Gait deferred.. On general examination, there is no carotid bruit or murmur, S1-S2 audible. Chest is clear on consultation. Abdomen is soft nontender. No organomegaly, bowel sounds present. Peripheral pulses are present. No edema. Results - Laboratory Findings CBC and BMP: 05/29/23 00:20 05/29/23 09:27 Abnormal Lab Findings: Abnormal Labs 05/29/23 05/29/23 05/29/23 00:20 01:51 09:27 Potassium 3.3 L Chloride 108 H Carbon Dioxide 21 L Calcium 8.1 L AST 140 H ALT 72 H Urine Protein Trace H Serum Alcohol 239 H* Assessment and Plan Assessment: * Peripheral neuropathy, unclear cause. Possibly related to alcoholism. Patient presented with worsening of neuropathic symptoms, probably due to intoxication. * Alcoholism, came with alcohol intoxication * Hyperlipidemia * Tobacco use Plan: * Patient is currently following up with neurologist at [place], who is performing testing for evaluation of the cause of neuropathy. Patient was scheduled for MRI of the cervical and lumbar spine today in [place], but she is in the hospital. Patient will reschedule those MRIs as outpatient. * Patient will follow up with her neurologist regarding further evaluation of her peripheral neuropathy. * Patient was counseled about abstinence from alcohol, as alcoholism could be toxic to the nerves. * Continue B12, folate, multivitamins. * Recommend abstinence from tobacco as well. * Neurologically clear for discharge with the above recommendations. Thank you for the consult.
[2023-05-29 14:14] VITALS: BP 147/99
[2023-05-29] MEDS: MAGNESIUM SULFATE-D5W PMX 1 GM in DEXTROSE/WATER 1 100ML.BAG IVPB SCH ×4 (14:15→17:54)
[2023-05-29 17:59] VITALS: PULSE 72
--- NOTE | 2023-05-29 20:12 | HP ---
HISTORY AND PHYSICAL This is a combined history and physical and discharge summary. CHIEF COMPLAINT: Numbness on the left side as well as alcohol intoxication. HISTORY OF PRESENT ILLNESS: This is a 42-year-old woman with a past medical history of multiple medical problems including history of asthma, DJD being followed by Dr. Suzanne Desouza in the outpatient setting, was apparently drinking heavily and the patient had about 1 pint of alcohol. The patient is complaining of numbness on the left side. Alcohol level was found to be elevated at 239. No features of any withdrawal symptoms. Complete neurovascular workup was negative so far. There is no history of any fever, rigors, or chills. After neurology consultation, the patient will be discharged with outpatient followup with primary physician and as well as Neurology as well as follow with alcohol rehab facilities. PAST MEDICAL HISTORY: Reviewed, include asthma. Rest of the history and rest of the chart is also reviewed. HOME MEDICATIONS: Reviewed include vitamin D3. Doses and rest of medication noted. ALLERGIES: None. FAMILY HISTORY: History of hypertension. SOCIAL HISTORY: History of smoking, alcohol. REVIEW OF SYSTEMS: A 14-point review is negative except as mentioned earlier. PHYSICAL EXAMINATION: VITAL SIGNS: Pulse is 82, blood pressure 140/93, respirations 18. HEENT: Conjunctivae normal. NECK: No JVD. CARDIOVASCULAR: S1, S2. RESPIRATIONS: Breath sounds diminished at the bases. ABDOMEN: Soft, nontender. LEGS: No edema. NERVOUS SYSTEM: No focal deficits. SKIN: No ulcers, rash, or bleeding. JOINTS: No active deforming arthropathy. LYMPHATICS: No lymph nodes. LABORATORY DATA: Reviewed. ASSESSMENT: 1. Acute alcohol intoxication. 2. Numbness of the left side with negative workup, possible transient ischemic attack. 3. History of asthma. 4. History of degenerative joint disease. 5. History of anemia. 6. History of HPV. 7. Multiple medical issues. RECOMMENDATIONS AND DISCUSSION: This is a 42-year-old woman, who presented with multiple complex medical issues. I recommend to continue the current management and continue symptomatic treatment. Otherwise, resume the home medications. Antiplatelet agents. Neurology consultation, primary physician consultation, and alcohol rehab facility. Please refer to the discharge reconciliation list for list of medications. Further recommendations to follow. MRI to be followed up in the outpatient setting by Neurology. MMODL / IJN: [id number] /
[2023-05-29] MEDS ORDERED: PREGABALIN 100 MG CAP PO SCH (21:00)
--- NOTE | 2023-05-30 12:29 | P.DS ---
Providers Date of admission: 05/29/23 04:26 Expected date of discharge: 05/29/23 Attending physician: Jazzy Pelayo Consults: 05/29/23 04:26 Consult Physician Routine Consulting Provider: Braden Serna Consult Reason/Comments: neuro deficits, CVA vs. peripheral neuropathy x2days Do you want consulting provider notified?: Yes Primary care physician: Suzanne Desouza [facility] Course: Final diagnosis Acute alcohol intoxication Numbness on the left side with negative workup, TIA ruled out Hypokalemia Hypomagnesemia History of asthma history of degenerative joint disease History of anemia History of HPV Discharge disposition Patient is being discharged in a stable condition with guarded prognosis to home. Patient will follow-up with Dr. Javier Pelayo in the outpatient setting upon discharge. Patient is to follow-up with her neurologist and outpatient testing as scheduled. Total time taken is greater than 35 minutes. Hospital course This is a 42-year-old female who was recently admitted with left-sided weakness and neurologic deficits that have all resolved as well as EtOH and being closely monitored. Patient was seen and evaluated by neurology recommending keeping outpatient follow-up appointment with her neurologist as she was scheduled to have an outpatient MRI that is all ready scheduled for the outpatient setting. Patient also found to have magnesium of 1.3 and replaced along with potassium recommending outpatient labs and prescription was provided. Patient instructed to follow-up with primary care provider on discharge. Patient has been cleared by neurology. Please refer to neurology no for further HPI. Currently no reports of chest pain, shortness of breath, or palpitations. Patient is afebrile. No reports of nausea or vomiting and patient is tolerating diet. Patient will be discharged home today. Physical exam: Gen: This is a 42-year-old female who is awake, alert and oriented 3, well- developed, well-nourished HEENT: Head is atraumatic, normocephalic. Pupils equal, round. Sclerae is anicteric. NECK: Supple. No JVD. No lymphadenopathy. No thyromegaly. LUNGS: Clear to auscultation. No wheezes or rhonchi. No intercostal re tractions. HEART: Regular rate and rhythm. No murmur. ABDOMEN: Soft. Bowel sounds are present. No masses. No tenderness. EXTREMITIES: No pedal edema. No calf tenderness. NEUROLOGICAL: Patient is awake, alert and oriented x3. Cranial nerves 2 through 12 are grossly intact. No neurologic focal deficits noted Please refer to medication reconciliation sheet for a list of medications. The impression and plan of care has been dictated by Monica Lazo, Nurse Practitioner as directed. Dr. Pierce MD I have performed a history and examination and MDM of this patient, discussed the same with the dictator, and agree with the dictator's assessment and plan as written ,documented as a scribe. Based on total visit time, I have performed more than 50% of the visit. Patient Condition at Discharge: Stable Plan - Discharge Summary New Discharge Prescriptions: New Thiamine [Vitamin B-1] 100 mg PO DAILY #30 tablet Continue Multivitamins, Thera [Multivitamin (formulary)] 1 tab PO DAILY Cyanocobalamin (Vitamin B-12) [Vitamin B-12] 1,000 mcg PO DAILY Pregabalin [Lyrica] 100 mg PO BID Ferrous Sulfate [Feosol] 325 mg PO DAILY Timolol 0.5% Ophth Soln [Timoptic 0.5% Ophth Soln] 1 drop RIGHT EYE BID Potassium Chloride [Klor-Con 10 ER] 10 meq PO DAILY Ammonium Lactate Lotion [Lac-Hydrin 12% Lotion] 1 applic TOPICAL BID PRN PRN Reason: irritation tiZANidine HCL [Zanaflex] 2 mg PO TID Cholecalciferol (Vitamin D3) [Vitamin D3 (3000 Iu)] 75 mcg PO DAILY Folic Acid 1 mg PO DAILY HYDROcodone/APAP 7.5-325MG [[place] 7.5-325] 1 tab PO TID PRN PRN Reason: Pain Discharge Medication List Multivitamins, Thera [Multivitamin (formulary)] 1 tab PO DAILY 04/09/18 [History] Cyanocobalamin (Vitamin B-12) [Vitamin B-12] 1,000 mcg PO DAILY 02/23/21 [History] Folic Acid 1 mg PO DAILY 02/23/21 [History] HYDROcodone/APAP 7.5-325MG [[place] 7.5-325] 1 tab PO TID PRN 02/23/21 [History] Pregabalin [Lyrica] 100 mg PO BID 02/23/21 [History] Ferrous Sulfate [Feosol] 325 mg PO DAILY 06/21/22 [History] Ammonium Lactate Lotion [Lac-Hydrin 12% Lotion] 1 applic TOPICAL BID PRN 05/29/23 [History] Cholecalciferol (Vitamin D3) [Vitamin D3 (3000 Iu)] 75 mcg PO DAILY 05/29/23 [History] Potassium Chloride [Klor-Con 10 ER] 10 meq PO DAILY 05/29/23 [History] Thiamine [Vitamin B-1] 100 mg PO DAILY #30 tablet 05/29/23 [Rx] Timolol 0.5% Ophth Soln [Timoptic 0.5% Ophth Soln] 1 drop RIGHT EYE BID 05/29/23 [History] tiZANidine HCL [Zanaflex] 2 mg PO TID 05/29/23 [History] Follow up Appointment(s)/Referral(s): Suzanne Desouza MD [Primary Care Provider] - 1-2 days Ambulatory/Diagnostic Orders: Basic Metabolic Panel [LAB.AMB] Time Frame: 2 Days, Location: None Selected Activity/Diet/Wound Care/Special Instructions: Okay for discharge after magnesium replacement Activity Limited until follow-up Follow-up with primary care provider this week Follow-up with your neurologist outpatient to discuss further imaging Continue taking medications as prescribed Avoid all alcohol use and exposure Follow-up labs to monitor electrolytes Discharge Disposition: HOME SELF-CARE
== END 2023-05-29 18:56 | disposition home or self-care (01) | DRG 775 ==
LOC: EC 23:34 → 3SCARD 05-29 04:26 → 4SSUR 05-29 12:27
PROVIDERS: ADMIT Hospitalist; ATTEND Hospitalist
DX: F10.229 Alcohol dependence with intoxication, unspecified (principal); R53.1 Weakness; E87.6 Hypokalemia; E83.42 Hypomagnesemia; Y90.7 Blood alcohol level of 200-239 mg/100 ml; M48.061 Spinal stenosis, lumbar region without neurogenic claudication; G62.9 Polyneuropathy, unspecified; R44.8 Other symptoms and signs involving general sensations and perceptions; F17.210 Nicotine dependence, cigarettes, uncomplicated; E78.5 Hyperlipidemia, unspecified; G89.29 Other chronic pain; F41.9 Anxiety disorder, unspecified; M54.9 Dorsalgia, unspecified; M54.2 Cervicalgia; R20.0 Anesthesia of skin; J45.909 Unspecified asthma, uncomplicated; Z79.899 Other long term (current) drug therapy; Z71.41 Alcohol abuse counseling and surveillance of alcoholic
CPT/HCPCS: 36415; 70450; 70496; 70498; 71046; 72131; 80048; 80053; 80320; 81003; 83735; 85025; 85610; 85730; 93005; 96361; 96365; 96366; 96375; 96376; 99285

== ENCOUNTER → 2023-06-19 | Outpatient (CLI) | payer OTHER ==
[2023-06-19 09:10] VITALS: BP 130/83; PULSE 89; RESP 17; TEMP 98
--- NOTE | 2023-06-19 09:17 | P.PN ---
Progress Note - Text Progress Note Date: 06/19/23 The patient is here for a postprocedure check. She had a vulvar lesion excised on 06/06/2023. The pathology revealed lichens simplex chronicus. The patient states she has not had any significant problems after the procedure. She states it feels 99% better. She denies any bleeding at this time. Exam: Blood pressure 130/83, height 5 feet 3 inches, weight 165 pounds, BMI 29.2, tension 98.0, pulse 89, pulse oximeter 97%. External genitalia: The excision site on the left labia appears 90% healed. The area is filled with normal granulation tissue which is pink in color and nonpigmented. There is no erythema, ulceration, or excoriation. 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 Plan: She can continue to use a small amount of Neosporin as directed for the upcoming week. A prescription for Temovate ointment will be sent electronically to [facility]. She can use Temovate ointment 0.05% twice a day as needed for vulvar itching or irritation. She understands that she should use this only periodically for up to 2 weeks at a time. She is to avoid scratching and rubbing. She is set to use this in one week. This will give the site more time to completely heal before using this. She understands she can also use an [id number] antihistamine such as Benadryl, as directed, for itching if this becomes severe at night. She understands that it can make her sleepy or drowsy so this should be only used at night. She was advised to return in one year for her annual well woman exam and as needed.
== END ==
LOC: WWCWWP 08:52
PROVIDERS: ATTEND Obstetrics & Gynecology
DX: N90.4 Leukoplakia of vulva (principal); F17.200 Nicotine dependence, unspecified, uncomplicated

== ENCOUNTER 2023-06-27 07:20 | Day surgery (SDC) | payer OTHER ==
[2023-06-21 12:08] VITALS: BMI 29.2
[~2023-06-27 07:20] MED LIST changes: -DEXAMETHASONE SOD PHOSPHATE 4 MG/ML 1 ML VIAL IV ONE; -HEPARIN SODIUM,PORCINE/PF 5,000 UNIT/0.5 ML SYRINGE SQ PRN; +LIDOCAINE 1% (10MG/ML) FOR IV START INTRADERMA PRN; -ONDANSETRON 4 MG/2 ML VIAL IVP ONE
--- NOTE | 2023-06-27 07:36 | P.GSHP ---
History of Present Illness H&P Date: 06/27/23 CHIEF COMPLAINT: GERD and colon screen HISTORY OF PRESENT ILLNESS: The patient is a 42-year-old female who presents with gastroesophageal reflux disease and need for colon screen. Upper and lower endoscopy were offered for further evaluation and management. PAST MEDICAL HISTORY: Please see list. PAST SURGICAL HISTORY: Please see list. MEDICATIONS: Please see list. ALLERGIES: Please see list. SOCIAL HISTORY: No illicit drug use FAMILY HISTORY: No reports of Crohn disease or ulcerative colitis. REVIEW OF ORGAN SYSTEMS: CONSTITUTIONAL: No reports of fevers or chills. GI: Denies any blood in stools or constipation. PHYSICAL EXAM: VITAL SIGNS: Stable GENERAL: Well-developed pleasant in no acute distress. HEENT: No scleral icterus. Extraocular movements grossly intact. Moist buccal mucosa. NECK: Supple without lymphadenopathy. CHEST: Unlabored respirations. Equal bilateral excursions. CARDIOVASCULAR: Regular rate and rhythm. Distal 2+ pulses. ABDOMEN: Soft, nondistended. MUSCULOSKELETAL: No clubbing, cyanosis, or edema. ASSESSMENT: 1. Gastroesophageal reflux disease 2. Colon screen. PLAN: 1. Recommend proceeding with an upper and lower endoscopy Past Medical History Past Medical History: Asthma, Musculoskeletal Disorder Additional Past Medical History / Comment(s): anemia, "bulging disc in lower back and neck", neuropathy History of Any Multi-Drug Resistant Organisms: None Reported Past Surgical History: Section, Orthopedic Surgery, Tubal Ligation, Uterine Ablation Additional Past Surgical History / Comment(s): Endometrial ablation in 2016. section 2. RT Ankle surgery. COLONOSCOPY 04/19/22 Past Anesthesia/Blood Transfusion Reactions: No Reported Reaction Past Psychological History: Anxiety Smoking Status: Current every day smoker Past Alcohol Use History: Rare Additional Past Alcohol Use History / Comment(s): SMOKES 1/2 PPD SINCE AGE 16. She states she stopped drinking alcohol in April 2022 because of GI problems. Past Drug Use History: None Reported - Past Family History Mother Family Medical History: Hypertension Additional Family Medical History / Comment(s): Maternal uncle has hypertension and a maternal grandmother has diabetes. Maternal aunt had ovarian cancer in a maternal aunt also had breast cancer. Medications and Allergies Home Medications Medication Instructions Recorded Confirmed Type Cyanocobalamin (Vitamin B-12) 1,000 mcg PO DAILY 02/23/21 06/21/23 History [Vitamin B-12] HYDROcodone/APAP 7.5-325MG [[place] 1 tab PO TID PRN 02/23/21 06/21/23 History 7.5-325] Pregabalin [Lyrica] 100 mg PO BID 02/23/21 06/21/23 History Ferrous Sulfate [Feosol] 325 mg PO DAILY 06/21/22 06/21/23 History Potassium Chloride [Klor-Con 10 ER] 10 meq PO DAILY 05/29/23 06/21/23 History Cholecalciferol [Vitamin D3 (25 25 mcg PO DAILY 06/21/23 06/21/23 History Mcg = 1000 Iu)] methocarbamoL [Methocarbamol] 500 mg PO TID 06/21/23 06/21/23 History Allergies Allergy/AdvReac Type Severity Reaction Status Date / Time No Known Allergies Allergy Verified 06/21/23 11:59
[2023-06-27 07:58] VITALS: TEMP 99
[2023-06-27] MEDS ORDERED: PROPOFOL 10 MG/ML 20 ML VIAL IV ONE (08:36)
--- NOTE | 2023-06-27 08:52 | P.PCN ---
Date of Procedure: 06/27/23 Description of Procedure: PREOPERATIVE DIAGNOSIS: Gastroesophageal reflux disease. Gastritis POSTOPERATIVE DIAGNOSIS: Gastroesophageal reflux disease. Gastritis OPERATION: Esophagogastroduodenoscopy with biopsies along antrum SURGEON: Elaine Valencia MD ANESTHESIA: MAC. INDICATIONS: The patient is a 42-year-old female who presents with reflux disease. Benefits and risks of the procedure were described. Informed consent was obtained. DESCRIPTION: The patient was brought into the endoscopy suite and laid in the left lateral decubitus position. An Olympus gastroscope was passed along the posterior oropharynx down to the distal esophagus where the squamocolumnar junction was encountered at 40 cm from the incisors. The stomach was entered and no bile reflux was found. Additional findings are listed below. Biopsies with cold forceps were obtained of the antrum. The first through third portion of the duodenum was examined. Retroflexion of the scope confirmed Hill grade 1 lower esophageal valve. The squamocolumnar junction demonstrated LA grade A erosive esophagitis. The stomach was desufflated. The patient tolerated the procedure well. FINDINGS: Squamocolumnar junction 40 cm from the incisors. Diaphragmatic hiatus at 40 cm. Hill grade 1 lower esophageal valve. LA grade A erosive esophagitis. Chronic gastritis with biopsies obtained. RECOMMENDATIONS: Upper endoscopy as needed.
--- NOTE | 2023-06-27 09:18 | P.PCN ---
Date of Procedure: 06/27/23 Description of Procedure: PREOPERATIVE DIAGNOSIS: Personal history of colon polyps GI bleed POSTOPERATIVE DIAGNOSIS: Arteriovenous malformation Diverticulosis, scattered Cecal polyp OPERATION: Colonoscopy to the ileocecal valve and appendiceal orifice, cecum Colonoscopy with cold forceps biopsy SURGEON: Elaine Valencia MD. ANESTHESIA: MAC. INDICATIONS: The patient is an 42-year-old female who presents with GI bleed and colon polyps. Benefits and risks were described and informed consent was obtained. DESCRIPTION OF PROCEDURE: The patient had undergone PEG. The patient had been brought into the operating room and laid in the left lateral decubitus position. After adequate intravenous sedation, the rectum was examined with 2% lidocaine jelly. The prostate was unremarkable. No external hemorrhoids were encountered. The rectal tone was within normal limits. No lesions were palpated in the rectal vault. An Olympus colonoscope was advanced until the cecum, ileocecal valve and appendiceal orifice were clearly viewed. The prep was good. Scattered diverticulosis was encountered. Colonic polyps were found and removed. No evidence of focal colitis was found. Retroflexion of the scope demonstrated grade 1 internal hemorrhoids without active bleeding or inflammation. The colon was desufflated. The patient had tolerated the procedure well. Withdrawal time was over 6 minutes. FINDINGS: Aronchick preparation quality scale 2 (1-5) Internal hemorrhoids, grade 1 No external hemorrhoids Arteriovenous malformation, 3 mm mid transverse colon without active bleeding. Scattered diverticulosis Removal of 1 polyp: - Cold forceps biopsy at cecum, 4 mm polyp. No focal colitis. RECOMMENDATIONS: Repeat colonoscopy 3 years, 2025 Plan - Discharge Summary Discharge Rx Participant: No New Discharge Prescriptions: Continue Cyanocobalamin (Vitamin B-12) [Vitamin B-12] 1,000 mcg PO DAILY Pregabalin [Lyrica] 100 mg PO BID Ferrous Sulfate [Feosol] 325 mg PO DAILY Potassium Chloride [Klor-Con 10 ER] 10 meq PO DAILY Cholecalciferol [Vitamin D3 (25 Mcg = 1000 Iu)] 25 mcg PO DAILY HYDROcodone/APAP 7.5-325MG [[place] 7.5-325] 1 tab PO TID PRN PRN Reason: Pain methocarbamoL [Methocarbamol] 500 mg PO TID Discharge Medication List Cyanocobalamin (Vitamin B-12) [Vitamin B-12] 1,000 mcg PO DAILY 02/23/21 [History] HYDROcodone/APAP 7.5-325MG [[place] 7.5-325] 1 tab PO TID PRN 02/23/21 [History] Pregabalin [Lyrica] 100 mg PO BID 02/23/21 [History] Ferrous Sulfate [Feosol] 325 mg PO DAILY 06/21/22 [History] Potassium Chloride [Klor-Con 10 ER] 10 meq PO DAILY 05/29/23 [History] Cholecalciferol [Vitamin D3 (25 Mcg = 1000 Iu)] 25 mcg PO DAILY 06/21/23 [History] methocarbamoL [Methocarbamol] 500 mg PO TID 06/21/23 [History] Follow up Appointment(s)/Referral(s): Elaine Valencia MD [STAFF PHYSICIAN] - 07/31/23 1:30 pm Patient Instructions/Handouts: Colorectal Polyps (GEN), Diverticulosis Diet (GEN), Diverticulosis (ED) Activity/Diet/Wound Care/Special Instructions: repeat colonoscopy 3 years, 2025 Discharge Disposition: HOME SELF-CARE
[2023-06-27 09:19] VITALS: BP 117/84; PULSE 76; RESP 16
== END 2023-06-27 10:17 | disposition home or self-care (01) ==
LOC: ORWHC2ENDO 07:20
PROVIDERS: ATTEND Surgery Plastic and Reconstructive Surgery
DX: K29.50 Unspecified chronic gastritis without bleeding (principal); K21.00 Gastro-esophageal reflux disease with esophagitis, without bleeding; K63.5 Polyp of colon; K57.30 Diverticulosis of large intestine without perforation or abscess without bleeding; K64.0 First degree hemorrhoids; Q27.30 Arteriovenous malformation, site unspecified; J45.909 Unspecified asthma, uncomplicated; F17.200 Nicotine dependence, unspecified, uncomplicated
CPT/HCPCS: 81025; 88305; 45380; 43239; J2704

== ENCOUNTER → 2023-10-03 | Outpatient (CLI) | payer OTHER ==
[2023-10-04 02:59] LABS: Basophils # (A) 0.03 X 10*3/uL (0.00-0.10); Basophils % (A) 0.5 %; Eosinophils # (A) 0.15 X 10*3/uL (0.04-0.35); Eosinophils % (A) 2.3 %; HCT 41.1 % (37.2-46.3); Lymphocytes % (A) 31.7 %; MCH 27.8 pg (27.0-32.0); MCHC 31.6 g/dL (32.0-37.0); MCV 87.8 FL (80.0-97.0); Mean Platelet Volume 10.8 FL (9.5-12.2); Monocytes # (A) 0.41 X 10*3/uL (0.20-1.00); Monocytes % (A) 6.2 %; NRBC Per 100 WBC 0 X 10*3/uL (0.00-0.01); Neutrophils # (A) 3.92 X 10*3/uL (1.80-7.70); Neutrophils % (A) 59.1 %; Platelet Count 258 X 10*3/uL (140-440); RBC 4.68 X 10*6/uL (4.10-5.20); RDW 12.9 % (11.5-14.5); WBC 6.62 X 10*3/uL (4.50-10.00)
[2023-10-04 03:38] LABS: Blood Urea Nitrogen 5.4 mg/dL (9.0-27.0); Calcium 9.6 mg/dL (8.7-10.3); Chloride 100 mmol/L (96-109); Glucose 81 mg/dL (70-110); Potassium 4.2 mmol/L (3.5-5.5); Sodium 140 mmol/L (135-145)
== END | disposition home or self-care (01) ==
LOC: LABPAT 15:08
PROVIDERS: ATTEND Orthopaedic Surgery Hand Surgery
DX: Z01.812 Encounter for preprocedural laboratory examination (principal); G56.22 Lesion of ulnar nerve, left upper limb; R22.32 Localized swelling, mass and lump, left upper limb
CPT/HCPCS: 80048; 85025

== ENCOUNTER 2023-10-10 12:05 | Day surgery (SDC) | payer OTHER ==
[2023-10-05 13:36] VITALS: BMI 28.3
--- NOTE | 2023-10-09 12:02 | P.HPOR ---
History of Present Illness H&P Date: 10/09/23 Subjective: This is a 42 year old female that presents today for follow up evaluation for her left upper extremity symptoms of numbness, pain, weakness, and volar wrist mass. She is unemployed and uses a walker and cane due to back issues. She underwent an EMG/NCV and is here to discuss results. She has symptoms that are worse at night and states the small and ring finger go numb around 7-8 times a day now. Physical Examination: LUE: AIN/PIN/Radial/Ulnar/Median motor intact. Radial/Ulnar/Median SILT. 2+/4 Radial/Ulnar pulses palpated. 5/5 APB, 5/5 FDI. 3cm volar soft tissue mass located at distal wrist crease. Ring/small finger numbness reproduced after 30 seconds of elbow flexion. EMG/NCV: B/L upper extremity EMG/NCV on 03/22/23 demonstrates bilateral cubital tunnel syndrome, worse on the left with 33 m/s velocity below elbow, right elbow 42m/s. Impression: 1.) Left cubital tunnel syndrome 2.) Left volar soft tissue mass Plan: Diagnosis and treatment options were discussed with the patient. She has failed conservative treatment and wishes to undergo a left open cubital tunnel release and left wrist soft tissue mass excision.Risks and benefits of surgery including bleeding, infection, damage to surrounding tissue, need for further surgery, residual numbness due to severe symptoms on EMG, mass recurrence were discussed and the patient wished to go forward with surgery. The patient was agreeable with this plan. -Albaro Hogue DO Orthopedic Hand/Upper Extremity Surgeon Past Medical History Past Medical History: Asthma, Musculoskeletal Disorder Additional Past Medical History / Comment(s): anemia, "bulging disc in lower back", neuropathy. Chronic neck and back problems. Past [employer] history: HPV in the past. One prior stillbirth and one set of twins. History of Any Multi-Drug Resistant Organisms: None Reported Past Surgical History: Section, Cholecystectomy, Orthopedic Surgery, Tubal Ligation, Uterine Ablation Additional Past Surgical History / Comment(s): Endometrial ablation in 2017. section 2. RT Ankle surgery. COLONOSCOPY 04/19/22. EGD/COLONOSCOPY, EXCISION VULVAR LESION 06/06/23 Past Anesthesia/Blood Transfusion Reactions: No Reported Reaction Smoking Status: Current every day smoker - Past Family History Mother Family Medical History: Hypertension Additional Family Medical History / Comment(s): Maternal uncle has hypertension and a maternal grandmother has diabetes. Maternal aunt had ovarian cancer in a maternal aunt also had breast cancer. Medications and Allergies Home Medications Medication Instructions Recorded Confirmed Type Cyanocobalamin (Vitamin B-12) 1,000 mcg PO DAILY 02/23/21 10/05/23 History [Vitamin B-12] HYDROcodone/APAP 7.5-325MG [[place] 1 tab PO TID PRN 02/23/21 10/05/23 History 7.5-325] Pregabalin [Lyrica] 100 mg PO BID 02/23/21 10/05/23 History Ferrous Sulfate [Feosol] 325 mg PO DAILY 06/21/22 10/05/23 History Cholecalciferol [Vitamin D3 (25 25 mcg PO DAILY 06/21/23 10/05/23 History Mcg = 1000 Iu)] Baclofen 5 mg PO BID 10/05/23 10/05/23 History Allergies Allergy/AdvReac Type Severity Reaction Status Date / Time No Known Allergies Allergy Verified 10/05/23 13:05 Physical Examination Osteopathic Statement: *. No significant issues noted on an osteopathic structural exam other than those noted in the History and Physical/Consult.
[~2023-10-10 12:05] MED LIST changes: +DEXAMETHASONE SOD PHOSPHATE 4 MG/ML 1 ML VIAL IV ONE; +HYDROmorphone 0.5 MG/0.5 ML SYRINGE IVP PRN; +MIDAZOLAM 2 MG/2 ML VIAL IV PRN; +ONDANSETRON 4 MG/2 ML VIAL IVP ONE
[2023-10-10] MEDS ORDERED: BUPIVACAINE (PF) 0.5% 30 ML VIAL SQ ONE ×2 (12:54→14:06)
[2023-10-10] MEDS ORDERED: LIDOCAINE 1% INJ 10MG/ML (30 ML VIAL-PF) SQ ONE ×2 (12:55→14:06)
[2023-10-10] MEDS ORDERED: HYDROmorphone (PF) 1 MG/ML ONE (13:05)
[2023-10-10] MEDS ORDERED: PROPOFOL 10 MG/ML 20 ML VIAL IV ONE (13:05)
[2023-10-10] MEDS ORDERED: fentaNYL (PF) 50 MCG/ML 2 ML AMP ONE (13:05)
[2023-10-10] MEDS ORDERED: KETOROLAC 15 MG/ML 1 ML VIAL ONE (13:05)
[2023-10-10] MEDS ORDERED: ePHEDrine 50 MG/ML 1 ML VIAL ONE (13:05)
[2023-10-10] MEDS ORDERED: LIDOCAINE 1% INJ 10MG/ML (20 ML MDV) ONE (13:05)
[2023-10-10] MEDS ORDERED: PHENYLEPHRINE-0.9% NACL SYG 1,000 MCG/10 ML SYRINGE ONE (13:05)
[2023-10-10] MEDS ORDERED: MIDAZOLAM 2 MG/2 ML VIAL ONE (13:05)
--- NOTE | 2023-10-10 14:24 | P.OP ---
Date of Procedure: 10/10/23 Preoperative Diagnosis: 1.) Left cubital tunnel syndrome 2.) Left wrist volar soft tissue mass Postoperative Diagnosis: 1.) Left cubital tunnel syndrome 2.) Left wrist volar soft tissue mass Procedure(s) Performed: 1.) Left open cubital tunnel release, in situ. 2.) Left wrist volar soft tissue mass excision,3x4 Anesthesia: GETA Surgeon: Albaro Hogue Dual Rate Dealer #1: Benito Rios Estimated Blood Loss (ml): 0 Pathology: other (left wrist soft tissue mass) Condition: stable Disposition: PACU Description of Procedure: This is a 42 year old female who presented today for a left open cubital tunnel release and left wrist soft tissue mass excision after having failed conservative treatment. Risks and benefits of surgery were discussed with the patient including bleeding, damage to surrounding tissue, infection, need for further surgery as well as risks of anesthesia including pulmonary embolism and even and the patient wished to proceed with surgical intervention. The patient was seen in the pre-operative area by myself. Consent and H&P were com pleted and updated. The correct extremity was marked in the pre-operative area by myself and all other questions were answered. Operative Narrative: The patient was brought to the operating room by the department of anesthesia. They remained on the portable stretcher and a rolling hand table was brought to the side of the operative extremity. Pre-operative time out was performed indicating the correct patient, procedure and laterality. All in the room agreed. Pre-operative antibiotics were given prior to skin incision. The patient was then drifted off to sleep by the department of anesthesia. A nonsterile tourniquet was then applied to the operative extremity and the left upper extremity was then prepped and draped in normal sterile fashion. The operative extremity was the exsanguinated with an esmarch bandage and the tourniquet was inflated to 250mmHg. Attention was brought to the medial elbow. 15 blade scalpel was used to incise skin in between the medial epicondyle and olecranon in a curvlinear and longitudinal fashion. Blunt dissection was taken down through subcutaneous tissue with tenotomy scissors and branches of the MABCN were identified and protected. Dissection was carried proximally and the ulnar nerve was identified and released up to the arcade of [place]. Dissection was then carried distally and montana's ligament was released at the medial epicondyle, the nerve appeared very compressed at this location with a flattened hourglass shape present. Dissection was then carried out further distal and the fascia of the two heads of the FCU were incised and the ulnar nerve was decompressed with [place] and tenotomy scissors and appeared to be tension free. The elbow was the flexed and extended and the ulnar nerve appeared to be stable in a tension free manner. A longitudinal incision was made over the volar aspect of the wrist overlying the prominent soft tissue mass located on a volar radial portion of the wrist. Blunt dissection was taken down through subcutaneous tissues taking care to protect the radial artery and surrounding branches. After subcutaneous dissection was performed a 4x3cm multilobulated clear gelatinous mass was identified and encased intimately around the palmaris longus tendon insertion on the palmar fascia. The mass was carefully dissected out and direct communication of the stalk was followed down to the palmar fascia. There was no obvious deeper connection to the radiocarpal joint. The mass was collected and sent to pathology. The wound around the elbow was closed with 3-0 Monocryl suture followed by running 4-0 Monocryl followed by steri strips and 20cc's of 0.5 % bupivacaine was injected into the surgical area. 8cc's 0.5% bupivacaine was injected into the subcutaneous tissues of the wrist. Skin closure was performed with interrupted 4-0 nylon sutures at the wrist. Tourniquet was let down and the hand had immediate perfusion. The patient was then woken by the department of anesthesia and transferred to PACU in stable condition. Benito DEE was present to assist in major portions of the case including protection of vital neurovascular structures and retraction. Albaro Hogue D.O. Orthopedic Hand/Upper Extremity Surgeon
[2023-10-10 14:45] VITALS: TEMP 97
[2023-10-10 15:14] VITALS: RESP 20
[2023-10-10 15:42] VITALS: BP 146/92; PULSE 69
== END 2023-10-10 15:30 | disposition home or self-care (01) ==
LOC: OR 12:05
PROVIDERS: ATTEND Orthopaedic Surgery Hand Surgery
DX: M67.432 Ganglion, left wrist (principal); G56.22 Lesion of ulnar nerve, left upper limb; J45.909 Unspecified asthma, uncomplicated; F17.200 Nicotine dependence, unspecified, uncomplicated; Z79.899 Other long term (current) drug therapy
CPT/HCPCS: 88304; 64718; J2250; J1100; J0690; J2405; J2001 ×2; J3010; J1170; J1885; J2704; J2371; J0665

== ENCOUNTER → 2023-12-21 | Outpatient (CLI) | payer OTHER ==
--- NOTE | 2023-12-21 16:32 | XR ---
EXAMINATION TYPE: XR Hip Complete LT DATE OF EXAM: 12/21/2023 COMPARISON: NONE HISTORY: 43-year-old female M25.559 PAIN IN UNSPECIFIED HIP TECHNIQUE: 2 views FINDINGS: Hip joint space is relatively maintained. No acute fracture, subluxation, or dislocation se en. IMPRESSION: No acute osseous abnormality seen.
== END | disposition home or self-care (01) ==
LOC: RADXRMAIN 16:06
PROVIDERS: ATTEND Family Medicine
DX: M25.559 Pain in unspecified hip (principal)
CPT/HCPCS: 73502

== ENCOUNTER → 2024-04-03 | Outpatient (CLI) | payer OTHER ==
[2024-04-03 14:26] LABS: BUN/Creat Ratio 6.43 Ratio (12.00-20.00); Basophils # (A) 0.02 X 10*3/uL (0.00-0.10); Basophils % (A) 0.6 %; Blood Urea Nitrogen 4.5 mg/dL (9.0-27.0); Calcium 9.7 mg/dL (8.7-10.3); Carbon Dioxide 28.4 mmol/L (21.6-31.8); Chloride 100 mmol/L (96-109); Eosinophils # (A) 0.05 X 10*3/uL (0.04-0.35); Eosinophils % (A) 1.4 %; Glucose 101 mg/dL (70-110); HCT 46.6 % (37.2-46.3); Lymphocytes # (A) 1.24 X 10*3/uL (0.90-5.00); Lymphocytes % (A) 35.3 %; MCH 30.7 pg (27.0-32.0); MCHC 32.2 g/dL (32.0-37.0); MCV 95.5 FL (80.0-97.0); Mean Platelet Volume 10.3 FL (9.5-12.2); Monocytes # (A) 0.31 X 10*3/uL (0.20-1.00); Monocytes % (A) 8.8 %; NRBC Per 100 WBC 0 X 10*3/uL (0.00-0.01); Neutrophils # (A) 1.88 X 10*3/uL (1.80-7.70); Neutrophils % (A) 53.6 %; Platelet Count 176 X 10*3/uL (140-440); Potassium 3.8 mmol/L (3.5-5.5); RBC 4.88 X 10*6/uL (4.10-5.20); RDW 17.3 % (11.5-14.5); Sodium 141 mmol/L (135-145); WBC 3.51 X 10*3/uL (4.50-10.00)
== END | disposition home or self-care (01) ==
LOC: LABPAT 10:16
PROVIDERS: ATTEND Orthopaedic Surgery Hand Surgery
DX: Z01.812 Encounter for preprocedural laboratory examination (principal); M67.432 Ganglion, left wrist; G56.02 Carpal tunnel syndrome, left upper limb
CPT/HCPCS: 36415; 80048; 85025

== ENCOUNTER 2024-04-09 09:19 | Day surgery (SDC) | payer OTHER ==
[2024-04-04 16:08] VITALS: BMI 27.1
--- NOTE | 2024-04-07 11:18 | P.HPOR ---
History of Present Illness H&P Date: 04/07/24 Subjective: This is a 43 year old female that presents today for follow up evaluation regarding a left wrist mass. She has a volar ganglion cyst excision in September of 2023 and states around December she noticed it was start to come back but was very small. She also underwent an open cubital tunnel release at that time. She states over the last several months she wakes up at night time with the entire hand falling asleep and it takes several hours for it to wake back up. Physical Examination: LUE: AIN/PIN/Radial/Ulnar/Median motor intact. Radial/Ulnar/Median SILT. 2+/4 Radial/Ulnar pulses palpated. 5/5 APB, 5/5 FDI. Negative Finkelsteins, negative CMC grind, positive Durkan's compression. 3x3cm volar ganglion cyst at level of distal wrist crease. Positive tinels over carpal tunnel/median nerve. Impression: 1.) Left wrist recurrent volar ganglion cyst 2.) Left carpal tunnel syndrome 3.) S/p Left open cubital tunnel syndrome Plan: Diagnosis and treatment options were discussed with the patient. We discussed she has a recurrent ganglion cyst after excision 6 months prior. She has pain with any type of pressure on the wrist due to the size and location of the mass since it has returned. We discussed continued observation vs aspiration vs re- excision. Due to her numbness and tingling in the hand I also recommend an open carpal tunnel release to address the compression of the nerve which may be exacerbated by the cyst. She is scheduled for a left wrist recurrent ganglion cyst excision and left open carpal tunnel release. Risks and benefits of surgery including bleeding, infection, damage to surrounding tissue, need for further surgery, recurrence, residual numbness were discussed and the patient wished to go forward with surgery.The patient was agreeable with this plan. -Albaro Hogue DO Orthopedic Hand/Upper Extremity Surgeon Past Medical History Past Medical History: Blood Disorder, Musculoskeletal Disorder, Thyroid Disorder Additional Past Medical History / Comment(s): Anemia. "Bulging disc in lower back and neck", chronic neck and back problems, peripheral neuropathy. Migraines. Slightly underactive thyroid. History of Any Multi-Drug Resistant Organisms: None Reported Past Surgical History: Section, Cholecystectomy, Orthopedic Surgery, Tubal Ligation, Uterine Ablation Additional Past Surgical History / Comment(s): section X2, right ankle surgery, colonoscopy - polyps removed, ganglion cyst removed from left wrist, release of left elbow. Past Anesthesia/Blood Transfusion Reactions: No Reported Reaction Smoking Status: Current every day smoker - Past Family History Mother Family Medical History: Deep Vein Thrombosis (DVT), Hypertension Additional Family Medical History / Comment(s): Maternal uncle has hypertension and a maternal grandmother has diabetes. Maternal aunt had ovarian cancer, a maternal aunt also had breast cancer. Medications and Allergies Home Medications Medication Instructions Recorded Confirmed Type Cyanocobalamin (Vitamin B-12) 1,000 mcg PO DAILY 02/23/21 04/04/24 History [Vitamin B-12] HYDROcodone/APAP 7.5-325MG [[place] 1 tab PO QID PRN 02/23/21 04/04/24 History 7.5-325] Ferrous Sulfate [Feosol] 325 mg PO DAILY 06/21/22 04/04/24 History Cholecalciferol [Vitamin D3 (25 25 mcg PO DAILY 06/21/23 04/04/24 History Mcg = 1000 Iu)] Clobetasol Propionate [Temovate 1 applic TOPICAL BID PRN 04/04/24 04/04/24 History 0.05% Cream] Pregabalin 150 mg PO BID 04/04/24 04/04/24 History Timolol 0.5% Ophth Soln [Timoptic 1 drop BOTH EYES BID 04/04/24 04/04/24 History 0.5% Ophth Soln] Triamcinolone Acetonide 1 applic TOPICAL DIRECTED 04/04/24 04/04/24 History [Triamcinolone Acetonide 0.1% Lotion] Allergies Allergy/AdvReac Type Severity Reaction Status Date / Time ketorolac [From Toradol] Allergy Rash/Hives Verified 04/04/24 15:35 Steroid (Does not know exact Allergy Rash/Hives Uncoded 04/04/24 15:35 name) Physical Examination Osteopathic Statement: *. No significant issues noted on an osteopathic structural exam other than those noted in the History and Physical/Consult.
[~2024-04-09 09:19] MED LIST changes: -DEXAMETHASONE SOD PHOSPHATE 4 MG/ML 1 ML VIAL IV ONE; -LACTATED RINGERS 1,000 ML IV SCH; -MIDAZOLAM 2 MG/2 ML VIAL IV PRN; -ONDANSETRON 4 MG/2 ML VIAL IVP ONE; +Pre Op ABX Message 1 EACH MISC MISCELLANE ONE
[2024-04-09] MEDS: LACTATED RINGERS 1,000 ML IV SCH (10:45)
[2024-04-09] MEDS: ONDANSETRON 4 MG/2 ML VIAL IVP ONE (11:04)
[2024-04-09] MEDS ORDERED: fentaNYL (PF) 50 MCG/ML 2 ML AMP ONE (11:25)
[2024-04-09] MEDS ORDERED: PROPOFOL 10 MG/ML 20 ML VIAL IV ONE (11:25)
[2024-04-09] MEDS ORDERED: LIDOCAINE 1% INJ 10MG/ML (20 ML MDV) ONE (11:25)
[2024-04-09] MEDS ORDERED: MIDAZOLAM 2 MG/2 ML VIAL ONE (11:25)
[2024-04-09] MEDS: SODIUM CHLORIDE 0.9% 100 ML with ceFAZolin 2,000 MG IV ONE (11:30)
[2024-04-09] MEDS: BUPIVACAINE (PF) 0.5% 30 ML VIAL SQ ONE ×2 (11:55→12:20)
--- NOTE | 2024-04-09 12:39 | P.OP ---
Date of Procedure: 04/09/24 Preoperative Diagnosis: 1.) Left carpal tunnel syndrome 2.) Recurrent left volar ganglion cyst Postoperative Diagnosis: 1.) Left carpal tunnel syndrome 2.) Recurrent left volar ganglion cyst Procedure(s) Performed: 1.) Left endoscopic carpal tunnel release 2.) Recurrent left wrist volar ganglion cyst excision Anesthesia: BLAIR Surgeon: Albaro Hogue Security Site Supervisor #1: Hardy Wheatley Estimated Blood Loss (ml): 5 Pathology: none sent Condition: stable Disposition: PACU Description of Procedure: This is a 43 year old female who presents today for a recurrent left volar soft tissue mass excision and left endoscopic carpal tunnel release after having failed conservative treatment. Risks and benefits of surgery were discussed with the patient including bleeding, damage to surrounding tissue, infection, need for further surgery, recurrence, as well as risks of anesthesia including pulmonary embolism and even and the patient wished to proceed with surgical intervention. The patient was seen in the pre-operative area by myself. Consent and H&P were completed and updated. The correct extremity was marked in the pre-operative area by myself and all other questions were answered. Operative Narrative: The patient was brought to the operating room by the department of anesthesia. They remained on the portable stretcher and a rolling hand table was brought to the side of the operative extremity. Pre-operative time out was performed indicating the correct patient, procedure and laterality. All in the room agreed. Pre-operative antibiotics were given prior to skin incision. The patient was then drifted off to sleep by the department of anesthesia. A nonsterile tourniquet was then applied to the operative extremity and the left upper extremity was then prepped and draped in normal sterile fashion. The operative extremity was the exsanguinated with an esmarch bandage and the tourniquet was inflated to 250mmHg. 15 blade scalpel was utilized to make a transverse incision on the palmar skin just ulnar to the palmaris longus tendon at the level of the distal wrist crease. Ragnell retractor was then placed radially and blunt dissection was performed to reveal the distal forearm fascia. This was lifted with fine Nicholas pick ups and Littler tenotomy scissors were then used to open the forearm fascia transversely and a double skin hook was then placed. Hamate finder was placed into the carpal tunnel and then sequential sized dilators were inserted followed by the synovial elevator to separate the flexor tenosynovium from the undersurface of the transverse carpal ligament and a washboard texture was felt. The MicroAire endoscopic carpal tunnel release system gun was the then inserted into the carpal tunnel hugging the deep portion of the transverse carpal ligament in line with the base of the ring finger. Transverse fibers of the ligament were directly visualized. Pressure was applied on the palm to reveal the distal extent of the transverse carpal ligament. The blade was then deployed and the distal half of the transverse carpal ligament was released. The scope was then brought distal again and remaining transverse fibers were incised with the blade. The proximal half of the transverse carpal ligament was then divided and again the scope was advanced distal and remaining transverse fibers were incised with the blade. The radial and ulnar leaflets were directly visualized and mobile consistent with complete release. Tenotomy scissors were then utilized to release the remaining distal forearm fascia under direct visualization taking care to preserve the palmar cutaneous branch of the median nerve. A curved incision was made over the volar aspect of the wrist through the previous incision overlying the prominent soft tissue mass located on a volar radial portion of the wrist. Blunt dissection was taken down through subcutaneous tissues taking care to protect the radial artery and surrounding branches. After subcutaneous dissection was performed a 4x3cm multilobulated clear gelatinous mass consistent with a ganglion cyst was identified and encased intimately around the insertion of the palmaris tendon on the palmar fascia. The mass was carefully dissected out and direct communication of the stalk was followed down to the carpal tunnel. Bovie cautery was used to cauterize the origin of the stalk. Minor superficial venous bleeding was controlled with bovie cautery. The wound was then closed with 4-0 Monocryl suture followed by steri strips and 10cc's of 0.5 % bupivacaine was injected into the surgical area. A soft dressing consisting of 4x4s, cast padding and an deborah wrap was applied. Tourniquet was let down and the digits had immediate normal perfusion. Hardy DEE was present for the case in it's entirety to assist in retraction and protection of vital neurovascular structures. The patient was then transferred to PACU in stable condition. Albaro Hogue DO Orthopedic Hand/Upper Extremity Surgeon
[2024-04-09 13:33] VITALS: BP 128/76; RESP 16; TEMP 97
[2024-04-09 13:39] VITALS: PULSE 86
== END 2024-04-09 14:00 | disposition home or self-care (01) ==
LOC: OR 09:19
PROVIDERS: ATTEND Orthopaedic Surgery Hand Surgery
DX: G56.02 Carpal tunnel syndrome, left upper limb (principal); M67.432 Ganglion, left wrist; J45.909 Unspecified asthma, uncomplicated; E07.9 Disorder of thyroid, unspecified; Z98.51 Tubal ligation status; Z98.891 History of uterine scar from previous surgery; Z79.899 Other long term (current) drug therapy; Z98.890 Other specified postprocedural states; F17.200 Nicotine dependence, unspecified, uncomplicated; Z82.49 Family history of ischemic heart disease and other diseases of the circulatory system; Z86.73 Personal history of transient ischemic attack (TIA), and cerebral infarction without residual deficits; Z79.890 Hormone replacement therapy; Z79.51 Long term (current) use of inhaled steroids
CPT/HCPCS: 81025; 29848; 25112; J2250; J2405; J0690; J2001; J3010; J2704; J0665

== ENCOUNTER → 2024-06-03 | Outpatient (CLI) | payer OTHER ==
[2024-06-03 09:49] VITALS: BP 130/86; PULSE 90; RESP 16; TEMP 98.4
--- NOTE | 2024-06-03 10:32 | P.HPOB ---
History of Present Illness H&P Date: 06/03/24 Chief Complaint: The patient is here for her routine gynecologic exam and ma mmogram. This is a 43-year-old -2-0-3 (1 stillborn with 1 set of twins )with an LMP of 2020. The patient had a vulvar cyst removed last year and states she has been doing better with occasional irritation improved with the Temovate ointment. Uses this infrequently. She tends to notice it more when she has been walking farther distances and can get irritated at those times. She does have hot flashes. She states she has noticed a decrease in the size of her right breast. The left breast has remained normal size. She denies feeling any strange lumps in the breast. She is otherwise without gynecologic complaints. Review of Systems The patient has lost 5 pounds over the last year. She denies respiratory, cardiac, or G.I. problems. Past Medical History Past Medical History: Asthma, Musculoskeletal Disorder Additional Past Medical History / Comment(s): anemia, "bulging disc in lower [place]", neuropathy. Chronic neck and back problems. 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 One prior stillbirth and one set of twins. GALLBLADDER DISORDER History of Any Multi-Drug Resistant Organisms: None Reported Past Surgical History: Section, Cholecystectomy, Orthopedic Surgery, Tubal Ligation, Uterine Ablation Additional Past Surgical History / Comment(s): Endometrial ablation in 2016. section 2. RT Ankle surgery. COLONOSCOPY 04/19/22. Back surgery and left wrist surgery. Past Anesthesia/Blood Transfusion Reactions: No Reported Reaction Past Psychological History: Anxiety Smoking Status: Current every day smoker (10 cigarettes/day.) Past Alcohol Use History: Rare Additional Past Alcohol Use History / Comment(s): SMOKES 1/2 PPD SINCE AGE 16. She states she is drinking less alcohol since April 2022 because of GI problems. She previously would drink up to fifth in a day. Past Drug Use History: None Reported Additional History: She was on 02/17/2024. Disabled. - Past Family History Mother Family Medical History: Diabetes Mellitus, Deep Vein Thrombosis (DVT), Hypertension Additional Family Medical History / Comment(s): . Maternal uncle has hypertension and a maternal grandmother has diabetes. Maternal aunt had ovarian cancer, a maternal aunt also had breast cancer. Medications and Allergies Home Medications Medication Instructions Recorded Confirmed Type Cyanocobalamin (Vitamin B-12) 1,000 mcg PO DAILY 02/23/21 06/03/24 History [Vitamin B-12] HYDROcodone/APAP 7.5-325MG [[place] 1 tab PO QID PRN 02/23/21 06/03/24 History 7.5-325] Ferrous Sulfate [Feosol] 325 mg PO DAILY 06/21/22 06/03/24 History Cholecalciferol [Vitamin D3 (25 25 mcg PO DAILY 06/21/23 06/03/24 History Mcg = 1000 Iu)] Pregabalin 150 mg PO BID 04/04/24 06/03/24 History Timolol 0.5% Ophth Soln [Timoptic 1 drop BOTH EYES BID 04/04/24 06/03/24 History 0.5% Ophth Soln] Triamcinolone Acetonide 1 applic TOPICAL DIRECTED 04/04/24 06/03/24 History [Triamcinolone Acetonide 0.1% Lotion] Allergies Allergy/AdvReac Type Severity Reaction Status Date / Time ketorolac [From Toradol] Allergy Rash/Hives Verified 06/03/24 09:45 methylprednisolone Allergy Rash/Hives Unverified 06/03/24 09:45 Steroid (Does not know exact Allergy Rash/Hives Uncoded 06/03/24 09:45 name) Exam Vital Signs Temp Pulse Resp BP Pulse Ox 06/03/24 09:47 98.4 F 90 16 130/86 100 Intake and Output 06/02/24 06/03/24 06/03/24 22:59 06:59 14:59 Other: Weight 68.946 kg Height 5 feet 3 inches, weight 152 pounds, BMI 26.9. This is a well-developed well-nourished black female who is alert and oriented times 3 in no acute distress. HEENT: Within normal limits. NECK: Supple without mass or thyromegaly. CHEST AND LUNGS: Clear to auscultation. HEART: Regular rate and rhythm. BREASTS: Are without mass or discharge. The right breast is slightly smaller than the left breast. There is no unusual puckering or dimpling. AXILLARY EXAM: Negative for adenopathy. BACK: Negative for CVA tenderness. ABDOMEN: Soft, nontender, without palpable masses. PELVIC EXAM: Normal external genitalia. Cervix and vagina appear normal with minimal atrophy. There is no unusual discharge. There is no evidence of prolapse. The uterus is midposition, nongravid size and nontender. There are no palpable adnexal masses or tenderness. RECTAL EXAM: negative for mass or tenderness and is negative for occult blood. EXTREMITIES: Nontender. IMPRESSION: 1. 43-year-old menopausal female with history of lichen simplex chronicus of the vulva status post excision of inclusion cyst, with improved symptoms with infrequent Temovate ointment use as needed. 2. The patient subjectively has noticed a decrease in the size of her right breast. This may be related to recent weight loss. There are no significant physical findings noted on breast exam. PLAN: 1. Pap smear was deferred since she had a negative Pap smear cotest on 05/23/2023. 2. Self breast awareness was discussed with the patient. We have also discussed symptoms associated with inflammatory breast cancer. The patient has been reassured that I do not feel anything unusual and that the decrease in size of her right breast may be related to her recent weight loss. 3. Screening mammogram will be done today. 4. Osteoporosis prevention was discussed. I have stressed the importance of adequate calcium, vitamin D and regular exercise. Recommended amounts of calcium and vitamin D were also discussed. 5. She will continue to use Temovate 0.05% ointment twice daily as needed for irritation. She will also try to avoid over washing with soap as well as rubbing and scratching. Electronic prescription will be sent to [facility] on . 6. She was advised to return in one year for her annual well woman exam and as needed.
== END ==
LOC: WWCWWP 09:09
PROVIDERS: ATTEND Obstetrics & Gynecology
DX: Z01.419 Encounter for gynecological examination (general) (routine) without abnormal findings (principal); F17.210 Nicotine dependence, cigarettes, uncomplicated; Z78.0 Asymptomatic menopausal state; Z80.3 Family history of malignant neoplasm of breast; Z87.2 Personal history of diseases of the skin and subcutaneous tissue; Z88.8 Allergy status to other drugs, medicaments and biological substances
CPT/HCPCS: 77063; 77067

== ENCOUNTER → 2024-08-18 | Outpatient (CLI) | payer OTHER ==
[2024-08-18 09:07] VITALS: BP 126/87; PULSE 92; RESP 16; TEMP 97.9
--- NOTE | 2024-08-18 12:35 | P.PAINPG ---
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 Pt states pain level is provoked at 10 /10 in intensity, constant, localized in the lumbar spine, predominantly axial, sharp in character w occasional shooting pain towards the L hip and R ankle. Pain is provoked by any activity. Pain is alleviated by PT x 6 wks which ended in Summer 2022, physician guided home exercises 4 times weekly since Summer 2022, heat, ice, medications ([place]), topical, repositioning and rest . PMH: OA, GERD, Asthma, Anxiety PSH: C- Section, Cholecystectomy, Lumbar Surgery, L Wrist Surgery, Tubal Ligation, Uterine Ablation, Colonoscopy (2021) SH: Daily tobacco use, Rare ETOH use, No illicit drug use FH: Mo- DM II, DVT, CAD All: See list Meds: See list REVIEW OF ORGAN SYSTEMS: CONSTITUTIONAL: No fevers or chills. No recent weight loss. NEUROLOGICAL: + numbness and tingling along the distal extremities. No seizure disorders or headaches. MUSCULOSKELETAL: + pain PSYCHIATRIC: Denies current depression or suicidal th oughts. Physical Examinations : Constitutional : Cooperative , not in acute distress . Neurologic : Cranial nerve II to XII intact. No focal neurological deficits. Psychiatric : alert & oriented x 3. Matching mood & appropriate affect. Judgment & insight intact. Musculoskeletal : Cervical Spine Motor strength in the deltoid and biceps: Normal right side. Normal Left side Motor strength biceps and the wrist extensors: Normal right side . Normal left side Motor strength in the triceps muscle: Normal right side. Normal left side Deep tendon reflexes: Normal at the biceps. Normal at Brachioradialis. Normal at triceps Vertebral body tenderness to deep palpation over Cervical facet loading test: positive bilaterally Spurling test: positive bilaterally Neck distraction test: positive bilaterally Padma sign: positive bilaterally Lumbar spine Motor strength lower extremities ,thigh and legs 5/5 Right side , 5/5 Left side Deep tendon reflexes : Normal Knee Jerk. Normal Ankle Jerk Vertebral body tenderness over L4 Acosta Test positive BL L4-L5 Lumbar facet Loading Test: positive Right / positive Left Range of motion of the lumbar spine Flexion 30 degrees, extension 10 degrees Straight Leg Raise test: Left/ Right positive at degrees Alberto test: positive right / positive left. Severe tenderness over the Sacroiliac joint on the Right / Left sides Gaenslen test: positive bilaterally Seated flexion test: positive bilaterally. Sacral spine : Severe tenderness over the Sacroiliac joint: right side / left side Range of motion: Flexion of the lumbar spine <60 degrees Range of motion: Extension of the lumbar spine <20 degrees Gaenslen's Test positive Alberto test: positive right side / left side Thigh Thrust Test Sacral Thrust Test Imaging: CT non contrast lumbar spine from 05/29/23 reviewed Assessment/ Plan : Lumbar radiculopathy Recommendation of BL TFESI L4-L5 #1. Risks, benefits of procedure discussed and patient verbalized understanding. Admits to anti- coagulant use or medical history of diabetes. Protocol for discontinuation/ continuation of medications alphonso procedure discussed. [place] 7.5/325mg #18 NR Use, side effects, adverse reactions, safe storage discussed. All questions answered. I have spent greater than 30 minutes on patient care today. Dr Gomez was available by phone for the evaluation of this patient. The time was used to review the medical records including relevant urine studies and Prescription history (MAPs), review of the available imaging, evaluation and examination of the patient, coordination of care with the medical staff and if applicable referring physicians, as well as creation of the medical record - Pain Location Bilateral Back Non-Pharmacological Interventions: Distraction Pharmacological Interventions: Topical Medication PQRS Narrative: Smoking Status Current every day smoker Hx Alcohol Use (MH) Yes: "2-3 beers every other day" Home Medications: Ambulatory Orders Cyanocobalamin (Vitamin B-12) [Vitamin B-12] 1,000 mcg PO DAILY 02/23/21 HYDROcodone/APAP 7.5-325MG [[place] 7.5-325] 1 tab PO QID PRN 02/23/21 Ferrous Sulfate [Feosol] 325 mg PO DAILY 06/21/22 Cholecalciferol [Vitamin D3 (25 Mcg = 1000 Iu)] 25 mcg PO DAILY 06/21/23 Pregabalin 150 mg PO BID 04/04/24 Timolol 0.5% Ophth Soln [Timoptic 0.5% Ophth Soln] 1 drop BOTH EYES BID 04/04/24 Triamcinolone Acetonide [Triamcinolone Acetonide 0.1% Lotion] 1 applic TOPICAL DIRECTED 04/04/24 Clobetasol Propionate [Temovate] 1 applic TP BID PRN #30 gm 06/03/24 Controlled Substance Measures - Controlled Substance Measures Is patient prescribed a controlled substance at discharge?: Yes When asked, does pt state using other controlled substances?: Yes If prescribed controlled substance>3 days was MAPS reviewed?: Prescribed <3 Days
== END ==
LOC: PNWHC3 08:39
PROVIDERS: ATTEND Specialist
DX: M51.9 Unspecified thoracic, thoracolumbar and lumbosacral intervertebral disc disorder
CPT/HCPCS: 99211

== ENCOUNTER 2024-09-02 12:12 | Day surgery (SDC) | payer OTHER ==
[~2024-09-02 12:12] MED LIST changes: -HYDROmorphone 0.5 MG/0.5 ML SYRINGE IVP PRN; +LACTATED RINGERS 1,000 ML IV SCH; -LIDOCAINE 1% (10MG/ML) FOR IV START INTRADERMA PRN; -Pre Op ABX Message 1 EACH MISC MISCELLANE ONE
[2024-09-02 12:41] VITALS: TEMP 97.4
[2024-09-02] MEDS ORDERED: IOPAMIDOL M200 10 ML VIAL ONE (13:44)
[2024-09-02] MEDS ORDERED: DEXAMETHASONE SOD PHOSPHATE 10 MG/ML 1 ML VIAL ONE (13:44)
--- NOTE | 2024-09-02 14:10 | P.PCN ---
Date of Procedure: 09/02/24 Procedure(s) Performed: PREOPERATIVE DIAGNOSIS: 1-Lumbar radiculopathy . 2-lumbar degenerative disc disease. POSTOPERATIVE DIAGNOSIS: 1-lumbar radiculopathy. 2-lumbar degenerative disc disease. PROCEDURE 1. Transforaminal epidural steroid injection under fluoroscopic guidance at bilateral L4-5 level. (Fluoroscopy images stored on file in the radiology Department ) 2. Lumbar epidurogram . ANESTHESIA: Local with 1% lidocaine 3 ml. EBL: Minimal PROCEDURE INDICATION: The patient with low back pain and radiculopathy symptoms unresponsive to conservative treatment. PROCEDURE DESCRIPTION / TECHNIQUE: The patient was seen and identified in the preoperative area. Risks, benefits, complications, and alternatives were discussed with the patient. The patient agreed to proceed with the procedure and signed the consent. IV was started, and vital signs were stable. Patient was taken to the OR and time out was completed. The patient was placed in the prone position on procedure table and a pillow was placed under the abdomen to reduce lumbar lordosis. The lumbosacral area was prepped and draped in the usual sterile fashion. Critical pause was taken. Vital signs were closely monitored during the procedure. Using oblique fluoroscopy, the chin of the ``Kiet dog at Right L4-5 level was identified, and the skin and deeper tissues just below was localized with 1% lidocaine. Subsequently, a 22-gauge 3.5-inch spinal needle was advanced under a tunneled view fluoroscopic guidance just underneath the chin of the ``Kiet dog at the right L4-5 Under lateral fluoroscopy, the needle was then advanced to the posterior border of the interforaminal space. After negative aspiration of CSF and blood and with no paresthesias, 1 mL Isovue 200 contrast dye was injected excellent epidurogram and outlining of the nerve root Subsequently, 3 mL of block solution containing 10 mg Dexamethasone and 2 mL of 0.9% normal saline PF was injected. Needle was removed and the same procedure was repeated at the left L4-5 level . At the end of the procedure, skin was cleansed, and bandages were applied. COMPLICATIONS:none DISPOSITION / PLANS: The patient was placed in a supine position and transferred to the recovery area in a stable condition for observation. There was no evidence of lower extremity motor or sensory deficit after the procedure. Patient was discharged from the recovery room after meeting discharge criteria. Home discharge instructions were given to the patient by the staff.
[2024-09-02 14:21] VITALS: RESP 18
--- NOTE | 2024-09-02 14:28 | FL ---
Intraoperative/procedural fluoroscopic services were provided for pain management of the lumbar spine . Total fluoroscopy time is 5.7 seconds with a total of 2 submitted images to PACS. Total DAP [id number] [id number]. Please see the operative note for further details. [facility], , 09/02/2024 2:25 PM
[2024-09-02 14:33] VITALS: BP 126/86; PULSE 66
== END 2024-09-02 14:27 | disposition home or self-care (01) ==
LOC: ORPAIN 12:12
PROVIDERS: ATTEND Specialist
DX: M51.16 Intervertebral disc disorders with radiculopathy, lumbar region (principal)

== ENCOUNTER → 2024-10-02 | Outpatient (CLI) | payer OTHER ==
[2024-10-02 08:21] VITALS: BP 144/84; PULSE 83; RESP 18; TEMP 98
--- NOTE | 2024-10-02 14:29 | P.PAINPG ---
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 Pt states she experienced 0 % pain relief x 4 wks s/p procedure. Pt states pain level is provoked at 8 /10 in intensity, constant, localized in the R lumbar spine, predominantly axial, sharp in character without shooting pain. Pain is provoked by any activity. Pain is alleviated by PT x 6 wks which ended in Summer 2022, physician guided home exercises 4 times weekly since Summer 2022, heat, ice, medications, topical, repositioning and rest . Interventional procedures include BL TFESI L4-L5 x1 Medications include Bates REVIEW OF ORGAN SYSTEMS: CONSTITUTIONAL: No fevers or chills. No recent weight loss. NEUROLOGICAL: + numbness and tingling along the distal extremities. No seizure disorders or headaches. MUSCULOSKELETAL: + pain PSYCHIATRIC: Denies current depression or suicidal thoughts. Physical Examinations : Constitutional : Cooperative , not in acute distress . Neurologic : Cranial nerve II to XII intact. No focal neurological deficits. Psychiatric : alert & oriented x 3. Matching mood & appropriate affect. Judgment & insight intact. Musculoskeletal : Cervical Spine Motor strength in the deltoid and biceps: Normal right side. Normal Left side Motor strength biceps and the wrist extensors: Normal right side . Normal left side Motor strength in the triceps muscle: Normal right side. Normal left side Deep tendon reflexes: Normal at the biceps. Normal at Brachioradialis. Normal at triceps Vertebral body tenderness to deep palpation over Cervical facet loading test: positive bilaterally Spurling test: positive bilaterally Neck distraction test: positive bilaterally Padma sign: positive bilaterally Lumbar spine Motor strength lower extremities ,thigh and legs 5/5 Right side , 5/5 Left side Deep tendon reflexes : Normal Knee Jerk. Normal Ankle Jerk Vertebral body tenderness over L4 Acosta Test positive BL L4-L5 Lumbar facet Loading Test: positive Right / positive Left Range of motion of the lumbar spine Flexion 30 degrees, extension 10 degrees Straight Leg Raise test: Left/ Right positive at degrees Alberto test: positive right / positive left. Severe tenderness over the Sacroiliac joint on the Right / Left sides Gaenslen test: positive bilaterally Seated flexion test: positive bilaterally. Sacral spine : Severe tenderness over the Sacroiliac joint: right side / left side Range of motion: Flexion of the lumbar spine <60 degrees Range of motion: Extension of the lumbar spine <20 degrees Gaenslen's Test positive Alberto test: positive right side / left side Thigh Thrust Test Sacral Thrust Test Imaging: CT non contrast lumbar spine from 05/29/23 reviewed Assessment/ Plan : Lumbar radiculopathy Recommendation of follow up w orthopedic surgeon to explore additional treatment options. Diclofenac gel w 1 RF. Use, side effects, adverse reactions, safe storage discussed. Per MAPS, received Butrans multiple times this past year but is refusing it. Pt has a narcotic agreement w Dr Patel and received Bates 5/325mg #60 + Lyrica 75mg #60 within the last month. All questions answered. I have spent greater than 30 minutes on patient care today. Dr Gomez was available by phone for the evaluation of this patient. The time was used to review the medical records including relevant urine studies and Prescription history ([facility]), review of the available imaging, evaluation and examination of the patient, coordination of care with the medical staff and if applicable referring physicians, as well as creation of the medical record - Pain Location Right Lower Back Non-Pharmacological Interventions: Exercise, Heat, Ice, Physical Therapy, Stretching PQRS Narrative: Smoking Status Current every day smoker Hx Alcohol Use (MH) Yes: "2-3 beers every other day" Home Medications: Ambulatory Orders Cyanocobalamin (Vitamin B-12) [Vitamin B-12] 1,000 mcg PO DAILY 02/23/21 Ferrous Sulfate [Feosol] 325 mg PO DAILY 06/21/22 Cholecalciferol [Vitamin D3 (25 Mcg = 1000 Iu)] 25 mcg PO DAILY 06/21/23 Pregabalin 150 mg PO BID 04/04/24 Timolol 0.5% Ophth Soln [Timoptic 0.5% Ophth Soln] 1 drop BOTH EYES BID 04/04/24 Triamcinolone Acetonide [Triamcinolone Acetonide 0.1% Lotion] 1 applic TOPICAL DIRECTED 04/04/24 Clobetasol Propionate [Temovate] 1 applic TP BID PRN #30 gm 06/03/24 Diclofenac Sodium Gel [Voltaren 1% Gel] 50 gm TOPICAL DAILY 30 Days #1 each 10/02/24 Controlled Substance Measures - Controlled Substance Measures Is patient prescribed a controlled substance at discharge?: No
== END ==
LOC: PNWHC3 08:01
PROVIDERS: ATTEND Specialist
DX: M47.26 Other spondylosis with radiculopathy, lumbar region (principal); F17.200 Nicotine dependence, unspecified, uncomplicated; Z88.8 Allergy status to other drugs, medicaments and biological substances
CPT/HCPCS: 99211

== ENCOUNTER 2024-10-16 16:32 | Emergency (ER) | payer OTHER ==
[2024-10-16 16:40] VITALS: TEMP 98.9
[2024-10-16] MEDS: HYDROcodone/APAP 5-325MG 1 EACH TAB PO STA (16:56)
--- NOTE | 2024-10-16 16:56 | ED ---
General Adult HPI - General Chief complaint: Extremity Injury, Upper Stated complaint: fall Time Seen by Provider: 10/16/24 16:40 Source: patient, RN notes reviewed Mode of arrival: wheelchair Limitations: no limitations - History of Present Illness Initial comments: 43-year-old female presents to the emergency department for evaluation of left wrist and foot pain following a fall in the shower. Patient reports that earlier today she was getting out of the shower when she slipped and attempted to catch herself. She reports that - Related Data Home Medications Medication Instructions Recorded Confirmed Cyanocobalamin (Vitamin B-12) 1,000 mcg PO DAILY 02/23/21 09/02/24 [Vitamin B-12] Ferrous Sulfate [Feosol] 325 mg PO DAILY 06/21/22 09/02/24 Cholecalciferol [Vitamin D3 (25 25 mcg PO DAILY 06/21/23 09/02/24 Mcg = 1000 Iu)] Pregabalin 150 mg PO BID 04/04/24 09/02/24 Timolol 0.5% Ophth Soln [Timoptic 1 drop BOTH EYES BID 04/04/24 09/02/24 0.5% Ophth Soln] Triamcinolone Acetonide 1 applic TOPICAL DIRECTED 04/04/24 09/02/24 [Triamcinolone Acetonide 0.1% Lotion] Previous Rx's Medication Instructions Recorded Clobetasol Propionate [Temovate] 1 applic TP BID PRN #30 gm 06/03/24 Diclofenac Sodium Gel [Voltaren 1% 50 gm TOPICAL DAILY 30 Days #1 each 10/02/24 Gel] Allergies Allergy/AdvReac Type Severity Reaction Status Date / Time ketorolac [From Toradol] Allergy Rash/Hives Verified 10/16/24 16:55 methylprednisolone Allergy Rash/Hives Verified 10/16/24 16:55 Steroid (Does not know exact Allergy Rash/Hives Uncoded 10/16/24 16:55 name) Review of Systems ROS Statement: Those systems with pertinent positive or pertinent negative responses have been documented in the HPI. ROS Other: All systems not noted in ROS Statement are negative. Past Medical History Past Medical History: Asthma, Musculoskeletal Disorder Additional Past Medical History / Comment(s): anemia, "bulging disc in neck and lower back", neuropathy. Chronic neck and back problems. 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 One prior stillbirth and one set of twins. GALLBLADDER DISORDER History of Any Multi-Drug Resistant Organisms: None Reported Past Surgical History: Section, Cholecystectomy, Orthopedic Surgery, Tubal Ligation, Uterine Ablation Additional Past Surgical History / Comment(s): Endometrial ablation in 2017. section 2. RT Ankle surgery. COLONOSCOPY 04/19/22. Back surgery and left wrist surgery. Past Anesthesia/Blood Transfusion Reactions: No Reported Reaction Past Psychological History: Anxiety Smoking Status: Current every day smoker Past Alcohol Use History: Rare Past Drug Use History: None Reported - Past Family History Mother Family Medical History: Diabetes Mellitus, Deep Vein Thrombosis (DVT), Hypertension Additional Family Medical History / Comment(s): . Maternal uncle has hypertension and a maternal grandmother has diabetes. Maternal aunt had ovarian cancer, a maternal aunt also had breast cancer. General Exam Limitations: no limitations General appearance: alert, in no apparent distress Course Vital Signs 10/16/24 16:37 Temperature 98.9 F Pulse Rate 98 Respiratory 16 Rate Blood Pressure 107/63 O2 Sat by Pulse 98 Oximetry Medical Decision Making - Medical Decision Making Was pt. sent in by a medical professional or institution (, PA, BIOLOGY LECTURER, urgent care, hospital, or custodial...) When possible be specific @ -[No] Did you speak to anyone other than the patient for history (EMS, parent, family, police, friend...)? What history was obtained from this source @ -[No] Did you review nursing and triage notes (agree or disagree)? Why? @ -[I reviewed and agree with nursing and triage notes] Were old charts reviewed (outside hosp., previous admission, EMS record, old EKG, old radiological studies, urgent care reports/EKG's, custodial records)? Report findings @ -[No old charts were reviewed] Differential Diagnosis (chest pain, altered mental status, abdominal pain women, abdominal pain men, vaginal bleeding, weakness, fever, dyspnea, syncope, headache, dizziness, GI bleed, back pain, seizure, CVA, palpatations, mental health, musculoskeletal)? @ -Differential Musculoskeletal Muscular strain, contusion, ligament sprain, fracture, arthritis, septic arthritis, bursitis, cellulitis, muscle spasm, nerve compression, DVT, arterial occlusion, herpes zoster, electrolyte abnormality, tumor.... This is not meant to be in all inclusive list EKG interpreted by me (3pts min.). @ -None X-rays interpreted by me (1pt min.). @ -[None done] CT interpreted by me (1pt min.). @ -[None done] U/S interpreted by me (1pt. min.). @ -[None done] What testing was considered but not performed or refused? (CT, X-rays, U/S, labs)? Why? @ -[None] What meds were considered but not given or refused? Why? @ -[None] Did you discuss the management of the patient with other professionals (professionals i.e. , PA, BIOLOGY LECTURER, lab, RT, psych nurse, child protective services social worker, warp tension tester, teacher, college service officer, pillowcase sewer)? Give summary @ -[No] Was smoking cessation discussed for >3mins.? @ -[No] Was critical care preformed (if so, how long)? @ -[No] Were there social determinants of health that impacted care today? How? (Homelessness, low income, unemployed, alcoholism, drug addiction, transportation, low edu. Level, literacy, decrease access to med. care, nursing home, rehab)? @ -[No] Was there de-escalation of care discussed even if they declined (Discuss DNR or withdrawal of care, Hospice)? DNR status @ -[No] What co-morbidities impacted this encounter? (DM, HTN, Smoking, COPD, CAD, Cancer, CVA, ARF, Chemo, Hep., AIDS, mental health diagnosis, sleep apnea, morbid obesity)? @ -[None] Was patient admitted / discharged? Hospital course, mention meds given and route, prescriptions, significant lab abnormalities, going to OR and other pertinent info. @ -[hospital course] Undiagnosed new problem with uncertain prognosis? @ -[No] Drug Therapy requiring intensive monitoring for toxicity (Heparin, Nitro, Insulin, Cardizem)? @ -[No] Were any procedures done? @ -[No] Diagnosis/symptom? @ -[default] Acute, or Chronic, or Acute on Chronic? @ -[default] Uncomplicated (without systemic symptoms) or Complicated (systemic symptoms)? @ -[default] Side effects of treatment? @ -[No] Exacerbation, Progression, or Severe Exacerbation? @ -[No] Poses a threat to life or bodily function? How? (Chest pain, [place], NH, pneumonia, PE, COPD, DKA, ARF, appy, cholecystitis, CVA, Diverticulitis, Homicidal, Suicidal, threat to staff... and all critical care pts) @ -[No] Disposition Clinical Impression: Fracture of 5th metatarsal Disposition: HOME SELF-CARE Condition: Stable Instructions (If sedation given, give patient instructions): Foot Fracture in Adults (ED) Additional Instructions: Please remain non- weightbearing. Rest, ice, elevate the foot. Follow-up with orthopedics. Return to the emergency department for new or worsening symptoms. Is patient prescribed a controlled substance at d/c from ED?: No Referrals: Suzanne Desouza MD [Primary Care Provider] - 1-2 days Lawrence Koehler MD [STAFF PHYSICIAN] - 1-2 days
--- NOTE | 2024-10-16 17:23 | XR ---
EXAMINATION TYPE: XR ankle limited LT, XR foot complete LT DATE OF EXAM: 10/16/2024 5:16 PM COMPARISON: None available. CLINICAL INDICATION: Female, 43 years old with history of fall; [facility] TECHNIQUE: XR ankle limited LT, XR foot complete LT; ankle is imaged in frontal, lateral and oblique projections. FINDINGS: Left foot: Comminuted displaced fracture of the distal fifth digit metatarsal shaft. No definite additional acut e fracture or dislocation. Tarsal and appears intact. Small defect near the Achilles tendon insertion site. Left ankle: No acute fracture or dislocation. Tibiotalar joint and talar dome appear unremarkable. Soft tissue sw elling surrounding the left ankle. IMPRESSION: Left foot: Comminuted displaced fracture of the distal fifth metatarsal shaft. Left ankle: Soft tissue swelling without acute fracture or dislocation. [facility], , 10/16/2024 5:21 PM
--- NOTE | 2024-10-16 17:24 | XR ---
EXAMINATION TYPE: XR wrist complete LT DATE OF EXAM: 10/16/2024 5:16 PM COMPARISON: None available. CLINICAL INDICATION: Female, 43 years old with history of fall; [facility] TECHNIQUE: XR wrist complete LT; examined in the Frontal, navicular, lateral, and oblique. FINDINGS: No acute osseous pathology, joint dislocation, or joint effusion. No evidence of any soft tissue swelling is seen. IMPRESSION: No acute osseous pathology. [facility], , 10/16/2024 5:21 PM
[2024-10-16 18:45] VITALS: BP 104/84; PULSE 92; RESP 20
== END 2024-10-16 18:45 | disposition home or self-care (01) ==
LOC: EC 16:32
DX: S92.352A Displaced fracture of fifth metatarsal bone, left foot, initial encounter for closed fracture (principal); F17.200 Nicotine dependence, unspecified, uncomplicated; Z88.8 Allergy status to other drugs, medicaments and biological substances; W18.2XXA Fall in (into) shower or empty bathtub, initial encounter
CPT/HCPCS: 99283

== ENCOUNTER 2024-11-13 17:29 | Observation (INO) | payer OTHER ==
[2024-11-13] MEDS: KETOROLAC 15 MG/ML 1 ML VIAL IVP STA (19:38)
[2024-11-13] MEDS: ORPHENADRINE 30 MG/ML 2 ML VIAL IVP STA (19:38)
[2024-11-13] MEDS: SODIUM CHLORIDE 0.9% 1,000 ML IV STA ×2 (19:39→22:52)
[2024-11-13] MEDS: HYDROmorphone 1 MG/ML 1 ML SYRINGE IVP STA ×2 (19:39→21:38)
--- NOTE | 2024-11-13 19:51 | ED ---
Back Pain HPI - General Chief Complaint: Back Pain/Injury Stated Complaint: General pain Time Seen by Provider: 11/13/24 19:00 Source: patient, EMS, RN notes reviewed Mode of arrival: ambulatory Limitations: no limitations - History of Present Illness Initial Comments: This is a 44-year-old female who presents to the emergency department for back pain and shortness of breath. States that for the last 8 years she has been dealing of problems related to chronic back pain. She is on [place], however it was just reduced to 7.5 mg twice daily, and she states that it has not been effective. Denies any loss of bowel/bladder control or saddle anesthesia. Additionally, over the last 3 days she has had shortness of breath with a productive cough and left arm pain. States that as result of her pain she has been unable to function or care for herself. She is also dealing with a broken left foot and is currently using crutches. MD Complaint: back pain - Related Data Home Medications Medication Instructions Recorded Confirmed Cyanocobalamin (Vitamin B-12) 1,000 mcg PO DAILY 02/23/21 09/02/24 [Vitamin B-12] Ferrous Sulfate [Feosol] 325 mg PO DAILY 06/21/22 09/02/24 Cholecalciferol [Vitamin D3 (25 25 mcg PO DAILY 06/21/23 09/02/24 Mcg = 1000 Iu)] Pregabalin 150 mg PO BID 04/04/24 09/02/24 Timolol 0.5% Ophth Soln [Timoptic 1 drop BOTH EYES BID 04/04/24 09/02/24 0.5% Ophth Soln] Triamcinolone Acetonide 1 applic TOPICAL DIRECTED 04/04/24 09/02/24 [Triamcinolone Acetonide 0.1% Lotion] Previous Rx's Medication Instructions Recorded Clobetasol Propionate [Temovate] 1 applic TP BID PRN #30 gm 06/03/24 Diclofenac Sodium Gel [Voltaren 1% 50 gm TOPICAL DAILY 30 Days #1 each 10/02/24 Gel] Allergies Allergy/AdvReac Type Severity Reaction Status Date / Time ketorolac [From Toradol] Allergy Rash/Hives Verified 10/16/24 16:55 methylprednisolone Allergy Rash/Hives Verified 10/16/24 16:55 Steroid (Does not know exact Allergy Rash/Hives Uncoded 10/16/24 16:55 name) Review of Systems ROS Statement: Those systems with pertinent positive or pertinent negative responses have been documented in the HPI. ROS Other: All systems not noted in ROS Statement are negative. Past Medical History Past Medical History: Asthma, Musculoskeletal Disorder Additional Past Medical History / Comment(s): anemia, "bulging disc in neck and lower back", neuropathy. Chronic neck and back problems. 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 One prior stillbirth and one set of twins. GALLBLADDER DISORDER History of Any Multi-Drug Resistant Organisms: None Reported Past Surgical History: Section, Cholecystectomy, Orthopedic Surgery, Tubal Ligation, Uterine Ablation Additional Past Surgical History / Comment(s): Endometrial ablation in 2017. section 2. RT Ankle surgery. COLONOSCOPY 04/19/22. Back surgery and left wrist surgery. Past Anesthesia/Blood Transfusion Reactions: No Reported Reaction Past Psychological History: Anxiety Smoking Status: Current every day smoker Past Alcohol Use History: Rare Past Drug Use History: None Reported - Past Family History Mother Family Medical History: Diabetes Mellitus, Deep Vein Thrombosis (DVT), Hypertension Additional Family Medical History / Comment(s): . Maternal uncle has hypertension and a maternal grandmother has diabetes. Maternal aunt had ovarian cancer, a maternal aunt also had breast cancer. General Exam Limitations: no limitations General appearance: alert, in distress Head exam: Present: atraumatic, normocephalic, normal inspection Respiratory exam: Present: normal lung sounds bilaterally. Absent: respiratory distress, wheezes, rales, rhonchi, stridor Cardiovascular Exam: Present: regular rate, normal rhythm, normal heart sounds. Absent: systolic murmur, diastolic murmur, rubs, gallop, clicks Neurological exam: Present: alert, oriented X3, CN II-XII intact Psychiatric exam: Present: normal affect, normal mood Skin exam: Present: warm, dry, intact, normal color. Absent: rash Course Vital Signs 11/13/24 11/13/24 11/13/24 17:33 20:12 22:34 Temperature 98.5 F Pulse Rate 130 H 110 H 94 Respiratory 18 16 20 Rate Blood Pressure 128/89 146/88 126/82 O2 Sat by Pulse 98 95 92 L Oximetry 11/13/24 11/14/24 11/14/24 23:46 00:32 02:34 Temperature Pulse Rate 126 H 89 81 Respiratory 17 14 16 Rate Blood Pressure 148/97 132/81 144/95 O2 Sat by Pulse 97 95 97 Oximetry 11/14/24 04:23 Temperature Pulse Rate 95 Respiratory 20 Rate Blood Pressure 130/77 O2 Sat by Pulse 99 Oximetry Medical Decision Making - Medical Decision Making This is a 44-year-old female who presents to the emergency department for back pain and shortness of breath. Was pt. sent in by a medical professional or institution? @ -No Did you speak to anyone other than the patient for history? @ -No Did you review nursing and triage notes? @ -Yes, and I agree, it is accurate with regards to the patient's symptoms. Were old charts reviewed? @ -No Differential Diagnosis? @ -Differential Back Pain: Strain, zoster, cauda equina syndrome, epidural abscess, vertebral osteomyelitis , discitis, fracture, subluxation, disc herniation, DJD, spinal stenosis, dissection, AAA, pancreatitis, peptic ulcer disease, pyelonephritis, kidney stone, this is not meant to be an all-inclusive list. EKG interpreted by me (3pts min.)? @ -EKG interpreted by me demonstrating the following: Sinus tachycardia. Ventricular rate 103 bpm, HI interval 134 ms, QRS duration 73 ms, QTc 348 ms. X-rays interpreted by me (1pt min.)? @ -Chest x-ray obtained, my interpretation identifies no localized consolidations or infiltrates. CT interpreted by me (1pt min.)? @ -CTA of the chest obtained. My interpretation identifies no evidence of a pulmonary embolus. CT scan of the lumbar spine obtained. My interpretation identifies no acute fractures. U/S interpreted by me (1pt. min.)? @ -Not obtained What testing was considered but not performed? (CT, X-rays, U/S, labs)? Why? @ -None What meds were considered but not given? Why? @ -None Did you discuss the management of the patient with other professionals? @ -Yes, Monica Lazo, who accepts the patient for admission. Did you reconcile home meds? @ -No Was smoking cessation discussed for >3mins.? @ -No Was critical care preformed (if so, how long)? @ -No Were there social determinants of health that impacted care today? How? (Homelessness, low income, unemployed, alcoholism, drug addiction, transportation, low edu. Level, literacy, decrease access to med. care, group home, re hab)? @ -No Was there de-escalation of care discussed even if they declined? (Discuss DNR or withdrawal of care, Hospice)? @ -No What co-morbidities impacted this encounter? (DM, HTN, Smoking, COPD, CAD, Cancer, CVA, Hep., AIDS, mental health diagnosis, sleep apnea, morbid obesity)? @ -Asthma, chronic back pain, smoking Was patient admitted / discharged? @ -Admitted. Lab work demonstrates an elevated lactic acid of 4.0 and an anion gap of 15. Magnesium low at 1.1. D-dimer elevated at 1.12. COVID, influenza, and RSV testing negative. Chest x-ray reveals no acute process. CTA of the chest obtained. No signs of a pulmonary embolus was identified. She did have findings concerning for developing bilateral airspace disease within the upper lungs. We did also obtain a CT scan of the lumbar spine which revealed no acute process. Patient continued to have intractable back pain despite multiple doses of pain medication. Given the electrolyte irregularities and lactic acidosis with intractable pain, patient was admitted to medicine for further management. 400 mg of magnesium oxide and 3 g of magnesium sulfate were administered. She was also started on maintenance IV fluids. Additionally, she was also started on the pneumonia protocol for concerning bilateral airspace disease in the upper lungs. Consult placed for orthopedics regarding intractable back pain. Case discussed with ED attending Dr. Nieto. Undiagnosed new problem with uncertain prognosis? @ -None Drug Therapy requiring intensive monitoring for toxicity (Heparin, Nitro, Insulin, Cardizem)? @ -None Were any procedures done? @ -None Diagnosis/symptom? @ -Lactic acidosis, hypomagnesemia, intractable back pain Acute, or Chronic, or Acute on Chronic? @ -Acute Uncomplicated (without systemic symptoms) or Complicated (systemic symptoms)? @ -Complicated Side effects of treatment? @ -None Exacerbation, Progression, or Severe Exacerbation] @ -Not applicable Poses a threat to life or bodily function? @ -Yes, the pain is limiting her ability to function. - Lab Data Result diagrams: 11/13/24 19:47 11/13/24 19:44 Lab Results 11/13/24 11/13/24 11/13/24 Range/Units 19:44 19:47 19:47 WBC 5.1 (3.8-10.6) k/uL RBC 5.09 (3.80-5.40) m/uL Hgb 14.6 (11.4-16.0) gm/dL Hct 45.2 (34.0-46.0) % MCV 88.7 (80.0-100.0) fL MCH 28.8 (25.0-35.0) pg MCHC 32.4 (31.0-37.0) g/dL RDW 12.2 (11.5-15.5) % Plt Count 423 (150-450) k/uL MPV 6.8 Neutrophils % 38 % Lymphocytes % 54 % Monocytes % 4 % Eosinophils % 2 % Basophils % 1 % Neutrophils # 1.9 (1.3-7.7) k/uL Lymphocytes # 2.8 (1.0-4.8) k/uL Monocytes # 0.2 (0-1.0) k/uL Eosinophils # 0.1 (0-0.7) k/uL Basophils # 0.0 (0-0.2) k/uL PT 12.3 (10.0-12.5) sec INR 1.1 (<1.2) APTT 27.9 (22.0-30.0) sec D-Dimer 1.12 H (<0.60) mg/L FEU Sodium 145 (137-145) mmol/L Potassium 3.6 (3.5-5.1) mmol/L Chloride 102 (98-107) mmol/L Carbon Dioxide 28 (22-30) mmol/L Anion Gap 15 mmol/L BUN 5 L (7-17) mg/dL Creatinine 0.60 (0.52-1.04) mg/dL Est GFR (CKD-EPI)AfAm >90 (>60 ml/min/1.73 sqM) Est GFR (CKD-EPI)NonAf >90 (>60 ml/min/1.73 sqM) Glucose 102 H (74-99) mg/dL Lactic Ac Sepsis Rflx Plasma Lactic Acid Ha (0.7-2.0) mmol/L Calcium 9.3 (8.4-10.2) mg/dL Magnesium 1.1 L (1.6-2.3) mg/dL Total Bilirubin 0.6 (0.2-1.3) mg/dL AST 121 H (14-36) U/L ALT 34 (4-34) U/L Alkaline Phosphatase 114 (38-126) U/L Troponin I (0.000-0.034) ng/mL Total Protein 8.1 (6.3-8.2) g/dL Albumin 4.7 (3.5-5.0) g/dL HCG, Qual Not Detected Influenza Type A (PCR) (Not Detectd) Influenza Type B (PCR) (Not Detectd) RSV (PCR) (Not Detectd) SARS-CoV-2 (PCR) (Not Detectd) 11/13/24 11/13/24 11/13/24 Range/Units 19:47 19:47 19:47 WBC (3.8-10.6) k/uL RBC (3.80-5.40) m/uL Hgb (11.4-16.0) gm/dL Hct (34.0-46.0) % MCV (80.0-100.0) fL MCH (25.0-35.0) pg MCHC (31.0-37.0) g/dL RDW (11.5-15.5) % Plt Count (150-450) k/uL MPV Neutrophils % % Lymphocytes % % Monocytes % % Eosinophils % % Basophils % % Neutrophils # (1.3-7.7) k/uL Lymphocytes # (1.0-4.8) k/uL Monocytes # (0-1.0) k/uL Eosinophils # (0-0.7) k/uL Basophils # (0-0.2) k/uL PT (10.0-12.5) sec INR (<1.2) APTT (22.0-30.0) sec D-Dimer (<0.60) mg/L FEU Sodium (137-145) mmol/L Potassium (3.5-5.1) mmol/L Chloride (98-107) mmol/L Carbon Dioxide (22-30) mmol/L Anion Gap mmol/L BUN (7-17) mg/dL Creatinine (0.52-1.04) mg/dL Est GFR (CKD-EPI)AfAm (>60 ml/min/1.73 sqM) Est GFR (CKD-EPI)NonAf (>60 ml/min/1.73 sqM) Glucose (74-99) mg/dL Lactic Ac Sepsis Rflx Plasma Lactic Acid Ha 4.0 H* (0.7-2.0) mmol/L Calcium (8.4-10.2) mg/dL Magnesium (1.6-2.3) mg/dL Total Bilirubin (0.2-1.3) mg/dL AST (14-36) U/L ALT (4-34) U/L Alkaline Phosphatase (38-126) U/L Troponin I <0.012 (0.000-0.034) ng/mL Total Protein (6.3-8.2) g/dL Albumin (3.5-5.0) g/dL HCG, Qual Influenza Type A (PCR) Not Detected (Not Detectd) Influenza Type B (PCR) Not Detected (Not Detectd) RSV (PCR) Not Detected (Not Detectd) SARS-CoV-2 (PCR) Not Detected (Not Detectd) 11/13/24 Range/Units 20:49 WBC (3.8-10.6) k/uL RBC (3.80-5.40) m/uL Hgb (11.4-16.0) gm/dL Hct (34.0-46.0) % MCV (80.0-100.0) fL MCH (25.0-35.0) pg MCHC (31.0-37.0) g/dL RDW (11.5-15.5) % Plt Count (150-450) k/uL MPV Neutrophils % % Lymphocytes % % Monocytes % % Eosinophils % % Basophils % % Neutrophils # (1.3-7.7) k/uL Lymphocytes # (1.0-4.8) k/uL Monocytes # (0-1.0) k/uL Eosinophils # (0-0.7) k/uL Basophils # (0-0.2) k/uL PT (10.0-12.5) sec INR (<1.2) APTT (22.0-30.0) sec D-Dimer (<0.60) mg/L FEU Sodium (137-145) mmol/L Potassium (3.5-5.1) mmol/L Chloride (98-107) mmol/L Carbon Dioxide (22-30) mmol/L Anion Gap mmol/L BUN (7-17) mg/dL Creatinine (0.52-1.04) mg/dL Est GFR (CKD-EPI)AfAm (>60 ml/min/1.73 sqM) Est GFR (CKD-EPI)NonAf (>60 ml/min/1.73 sqM) Glucose (74-99) mg/dL Lactic Ac Sepsis Rflx Y Plasma Lactic Acid Ha (0.7-2.0) mmol/L Calcium (8.4-10.2) mg/dL Magnesium (1.6-2.3) mg/dL Total Bilirubin (0.2-1.3) mg/dL AST (14-36) U/L ALT (4-34) U/L Alkaline Phosphatase (38-126) U/L Troponin I (0.000-0.034) ng/mL Total Protein (6.3-8.2) g/dL Albumin (3.5-5.0) g/dL HCG, Qual Influenza Type A (PCR) (Not Detectd) Influenza Type B (PCR) (Not Detectd) RSV (PCR) (Not Detectd) SARS-CoV-2 (PCR) (Not Detectd) - Radiology Data Radiology results: report reviewed, image reviewed Disposition Clinical Impression: Bilateral pneumonia, Lactic acidosis, Hypomagnesemia, Intractable low back pain Disposition: ADMITTED IP TO THIS HOSP
--- NOTE | 2024-11-13 20:08 | XR ---
EXAMINATION TYPE: XR chest 2V DATE OF EXAM: 11/13/2024 8:04 PM CLINICAL INDICATION:Female, 44 years old with history of difficulty breathing; [facility] COMPARISON: Chest radiographs from 05/29/2023. TECHNIQUE: XR chest 2V Frontal and lateral views of the chest. FINDINGS: Lungs/Pleura: There is no evidence of pleural effusion, focal consolidation, or pneumothorax. Pulmonary vascularity: Unremarkable. Heart/mediastinum: Cardiomediastinal silhouette is unremarkable. Musculoskeletal: No acute osseous pathology. IMPRESSION: No acute cardiopulmonary disease/process. [facility], , 11/13/2024 8:06 PM
[2024-11-13 20:14] LABS: Basophils % (A) 1 %; Eosinophils # (A) 0.1 k/uL (0-0.7); Eosinophils % (A) 2 %; HCT 45.2 % (34.0-46.0); HGB 14.6 gm/dL (11.4-16.0); Lymphocytes # (A) 2.8 k/uL (1.0-4.8); Lymphocytes % (A) 54 %; MCH 28.8 pg (25.0-35.0); MCHC 32.4 g/dL (31.0-37.0); MCV 88.7 fL (80.0-100.0); Mean Platelet Volume 6.8; Monocytes # (A) 0.2 k/uL (0-1.0); Monocytes % (A) 4 %; Neutrophils # (A) 1.9 k/uL (1.3-7.7); Neutrophils % (A) 38 %; Platelet Count 423 k/uL (150-450); RBC 5.09 m/uL (3.80-5.40); RDW 12.2 % (11.5-15.5); WBC 5.1 k/uL (3.8-10.6)
[2024-11-13 20:17] LABS: HCG,Qualitative Serum Not Detected
[2024-11-13 20:36] LABS: ALT 34 U/L (4-34); AST 121 U/L (14-36); African American GFR (CKD) >90 (>60 ml/min/1.73 sqM); Albumin 4.7 g/dL (3.5-5.0); Alkaline Phosphatase 114 U/L (38-126); Anion Gap 15 mmol/L; Blood Urea Nitrogen 5 mg/dL (7-17); Calcium 9.3 mg/dL (8.4-10.2); Carbon Dioxide 28 mmol/L (22-30); Chloride 102 mmol/L (98-107); Glucose 102 mg/dL (74-99); Magnesium 1.1 mg/dL (1.6-2.3); Non-African American GFR(CKD) >90 (>60 ml/min/1.73 sqM); Potassium 3.6 mmol/L (3.5-5.1); Sodium 145 mmol/L (137-145); Total Bilirubin 0.6 mg/dL (0.2-1.3); Total Protein 8.1 g/dL (6.3-8.2)
[2024-11-13 21:04] LABS: INR 1.1 (<1.2); Partial Thromboplastin Time 27.9 sec (22.0-30.0); Prothrombin Time 12.3 sec (10.0-12.5)
[2024-11-13] MEDS: MAGNESIUM SULFATE-D5W PMX 1 GM in DEXTROSE/WATER 1 100ML.BAG IVPB SCH (21:06)
[2024-11-13] MEDS: MAGNESIUM OXIDE 400 MG TAB PO STA (21:37)
--- NOTE | 2024-11-13 21:45 | CT ---
EXAMINATION TYPE: CT chest angio for PE CT DLP: mGycm, Automated exposure control for dose reduction was used. DATE OF EXAM: 11/13/2024 9:35 PM COMPARISON: Chest radiograph from same day. CLINICAL INDICATION:Female, 44 years old with history of Tachycardia, KALEB, elevated d-dimer; TACHYCAR ROBERT, KALEB, ELEVATED DIMER TECHNIQUE/CONTRAST: CTA scan of the thorax is performed with IV Contrast, patient injected with 100ML mL of Isovue 370, M IP images are created and reviewed these are created on a separate workstation.. FINDINGS: Pulmonary Artery: Evaluation of the subsegmental branches is limited due to bolus timing. No evidence of central filling defect is identified. The pulmonary artery is of normal caliber. Lungs/Pleura: Scattered centrilobular nodules, some of which demonstrate a tree-in-bud configuration within the right lung. No pleural effusion or pneumothorax. Airway: Large airways are patent. Heart: Heart is within normal limits for size. Vasculature: No evidence of aortic aneurysm. Mediastinum: No gross evidence of adenopathy. Musculoskeletal: No acute osseous abnormalities Soft Tissues: Unremarkable. Lower neck: No significant findings. Upper Abdomen: No significant findings. IMPRESSION: 1. No evidence of central pulmonary embolism. 2. Findings concerning for developing bilateral airspace disease within the upper lungs. [facility], , 11/13/2024 9:43 PM
--- NOTE | 2024-11-13 21:58 | CT ---
EXAMINATION TYPE: CT lumbar spine wo con CT DLP: mGycm, Automated exposure control for dose reduction was used. DATE OF EXAM: 11/13/2024 9:34 PM COMPARISON: CT lumbar spine 05/29/2023. CLINICAL INDICATION:Female, 44 years old with history of pain; [facility], Pt to ED for chronic back pain. H ome pain meds are not working. TECHNIQUE: Multiple axial images were obtained from the midportion of T11 through the sacroiliac yo nts. Soft tissue and bone windows in coronal and sagittal planes were obtained and reviewed. 3-D ref ormats of the bones were created on a separate workstation and submitted for review. Contrast used:none. Oral contrast used: none. FINDINGS: Alignment: There are 5 lumbar type vertebral bodies within normal alignment. No evidence of fracture is identified. Vertebral body heights are maintained.Minimal anterior osteoph ytosis is identified all levels as well as degenerative endplate changes, most pronounced at L4-L5. Mild multilevel degenerative changes of the lumbar spine appreciated with facet arthropathy. The spin al canal is patent and all levels, there is mild neural canal stenosis identified on the left at L3-L 4 and L4-L5. Degenerative changes of the bilateral SI joints, left greater than right. No prevertebral or paravertebral soft tissue abnormality is. IMPRESSION: 1. No acute process or significant spinal canal stenosis. 2. Mild degenerative changes of the lumbar spine as well as moderate SI joint degeneration, left grea ter than right. [facility], , 11/13/2024 9:55 PM
[2024-11-13] MEDS ORDERED: IPRATROPIUM-ALBUTEROL 3 ML NEB INHALATION PRN (22:06)
[2024-11-13] MEDS ORDERED: PNEUMONIA PROTOCOL UTILIZED 1 EACH MISC PO PRN (22:06)
[2024-11-13] MEDS ORDERED: ACETAMINOPHEN TAB 325 MG TAB PO PRN (22:25)
[2024-11-13] MEDS ORDERED: IBUPROFEN 400 MG TAB PO PRN (22:25)
[2024-11-13] MEDS ORDERED: KETOROLAC 15 MG/ML 1 ML VIAL IVP PRN (22:25)
[2024-11-13] MEDS ORDERED: NALOXONE 0.4 MG/ML 1 ML VIAL IV PRN (22:25)
[2024-11-13] MEDS: AZITHROMYCIN 500 MG in SODIUM CHLORIDE 0.9% 250 ML IVPB STA (23:35)
[2024-11-14] MEDS: HYDROmorphone 1 MG/ML 1 ML SYRINGE IVP PRN (01:48)
[2024-11-14] MEDS: ONDANSETRON 4 MG/2 ML VIAL IVP PRN (01:57)
[2024-11-14] MEDS: METOCLOPRAMIDE 5 MG/ML 2 ML VIAL IVP STA (04:29)
[2024-11-14] MEDS: MECLIZINE 25 MG TAB PO STA (04:29)
[2024-11-14] MEDS: SODIUM CHLORIDE 0.9% 1,000 ML IV ONE (04:33)
[2024-11-14 04:39] LABS: Glucose,Whole Blood 90 mg/dL (70-110)
[2024-11-14] MEDS: MAGNESIUM SULFATE-D5W PMX 1 GM in DEXTROSE/WATER 1 100ML.BAG IVPB SCH (05:26)
[2024-11-14] MEDS: IPRATROPIUM-ALBUTEROL 3 ML NEB INHALATION SCH (07:50)
[2024-11-14] MEDS: AZITHROMYCIN 500 MG TAB PO SCH (08:31)
[2024-11-14] MEDS: HYDROmorphone 0.5 MG/0.5 ML SYRINGE IVP PRN (08:31)
[2024-11-14] MEDS: PANTOPRAZOLE 40 MG/10 ML VIAL IV SCH (08:59)
[2024-11-14] MEDS: SODIUM CHLORIDE 0.9% 1,000 ML IV SCH (10:14)
[2024-11-14] MEDS ORDERED: METOCLOPRAMIDE 5 MG/ML 2 ML VIAL IVP PRN (10:44)
[2024-11-14 12:23] LABS: Basophils % (A) 0 %; Eosinophils # (A) 0.1 k/uL (0-0.7); Eosinophils % (A) 2 %; HCT 38.7 % (34.0-46.0); HGB 12.2 gm/dL (11.4-16.0); Lymphocytes # (A) 1.5 k/uL (1.0-4.8); Lymphocytes % (A) 29 %; MCH 28.8 pg (25.0-35.0); MCHC 31.5 g/dL (31.0-37.0); MCV 91.3 fL (80.0-100.0); Monocytes # (A) 0.1 k/uL (0-1.0); Monocytes % (A) 2 %; Neutrophils # (A) 3.3 k/uL (1.3-7.7); Neutrophils % (A) 65 %; Platelet Count 292 k/uL (150-450); RBC 4.23 m/uL (3.80-5.40); RDW 12.3 % (11.5-15.5)
[2024-11-14 12:43] LABS: ALT 29 U/L (4-34); AST 101 U/L (14-36); African American GFR (CKD) >90 (>60 ml/min/1.73 sqM); Albumin/Globulin Ratio 1.3; Alkaline Phosphatase 99 U/L (38-126); Anion Gap 4 mmol/L; Blood Urea Nitrogen 3 mg/dL (7-17); Calcium 8.1 mg/dL (8.4-10.2); Carbon Dioxide 29 mmol/L (22-30); Chloride 103 mmol/L (98-107); Glucose 106 mg/dL (74-99); Non-African American GFR(CKD) >90 (>60 ml/min/1.73 sqM); Potassium 3.5 mmol/L (3.5-5.1); Sodium 136 mmol/L (137-145); Total Bilirubin 0.8 mg/dL (0.2-1.3)
--- NOTE | 2024-11-14 13:34 | XR ---
EXAMINATION TYPE: XR abdomen acute w cxr DATE OF EXAM: 11/14/2024 1:29 PM INDICATION: Patient age:Female; 44 years old; Reason for study: Nausea; [facility]. COMPARISON: Chest radiograph 11/13/2024, CTA chest 11/13/2024 TECHNIQUE: Two radiographic views of the abdomen and an a chest radiograph were obtained. FINDINGS CHEST: Lungs/Pleura: The lungs are clear. There is no evidence of pleural effusion, focal consolidation or p neumothorax. Mediastinum: Unremarkable. Vasculature: Normal. Heart: Normal in size. Musculoskeletal: The osseous structures are intact. Other findings: No significant. FINDINGS ABDOMEN: Bowel gas pattern: Normal without dilated loops of small or large bowel. Fecal material and gas are d emonstrated throughout the colon and rectum. Abnormal calcifications: None. Musculoskeletal: Normal. Other: None. IMPRESSION: 1. No radiographic evidence for acute abdominal process. 2. No acute cardiopulmonary process [facility], , 11/14/2024 1:32 PM
--- NOTE | 2024-11-14 14:04 | CT ---
EXAMINATION TYPE: CT brain cspine wo con CT DLP: 1513.5 mGycm, Automated exposure control for dose reduction was used. DATE OF EXAM: 11/14/2024 1:48 PM COMPARISON: CT neck 08/17/2023, MRI brain 01/23/2020, 10/30/2019, MR cervical spine 01/23/2020, 07/18/2018. CLINICAL INDICATION:Female, 44 years old with history of Headache; Headache TECHNIQUE: Brain: Multiple axial CT images of the brain were obtained without IV contrast. Cspine: Axial CT images from the skull base to the inferior aspect of T2 we obtained without intraven ous contrast. Coronal and sagittal reformatted images were also reviewed. FINDINGS: Brain: Extra-axial spaces: No abnormal extra-axial fluid collections. Ventricular system: Within normal limits Cerebral parenchyma: No acute intraparenchymal hemorrhage or mass effect. The lópez-white junction is well differentiated. Cerebellum: Unremarkable. Mass effect: No evidence of midline shift. Intracranial vasculature: unremarkable Soft tissues: Normal. Calvarium/osseous structures: No depressed skull fracture. Remote left lamina papyracea fracture. Paranasal sinuses and mastoid air cells: Mastoid air cells are clear. Partial visualization of left m axillary sinus 2.2 cm mucous retention cyst. Remaining paranasal sinuses are clear. Visualized orbits: Orbital contents are intact. Cervical spine: Fracture: None. Osseous structures: Multilevel disc space narrowing with endplate sclerosis and osteophytosis. Vertebral alignment: No spondylolisthesis. Reversal of normal cervical lordosis. Spinal canal/Neural Foramina: Posterior disc osteophyte complex at C5-C6 and C6-C7 with mild effaceme nt of anterior thecal sac. No evidence for significant neural foraminal stenosis. Neck soft tissues: Prevertebral soft tissues are within normal limits. Other: The airway is patent. The lung apices are clear. IMPRESSION: 1. No acute intracranial process. 2. No evidence of cervical spine fracture. 3. Mild multilevel degenerative disc disease. [facility], , 11/14/2024 2:01 PM
[2024-11-14 14:26] LABS: NT-Pro-B-Type Natriuretic Pept 24 pg/mL
[2024-11-14 14:32] LABS: Amorphous Sediment,Urine Few /hpf; Appearance,Urine Turbid (Clear); Bilirubin,Urine Negative (Negative); Blood,Urine Trace (Negative); Color,Urine Yellow; Glucose,Urine (UA) Negative (Negative); Ketones,Urine Negative (Negative); Leukocyte Esterase,Urine Negative (Negative); Mucus,Urine Many /hpf; Nitrite,Urine Negative (Negative); Protein,Urine Trace (Negative); Specific Gravity,Urine 1.038 (1.001-1.035); Squamous Epithelial Cell,Urine 8 /hpf (0-4); Urobilinogen,Urine <2.0 mg/dL (<2.0)
--- NOTE | 2024-11-14 14:40 | P.HPIM ---
History of Present Illness H&P Date: 11/14/24 History of present illness; Patient is a 44-year-old female presents with dizziness, back pain and shortness of breath. She has had dizziness and headache and some ongoing for the last several days. Headache concentrated around her right eye, constant pressure- like sensation. She also attest to this when she extends her neck. Her back pain symptoms have been ongoing for the last 8 years. Denying loss of bladder or bowel or saddle anesthesia. She is seeing pain management has been taking [place] however this was reduced to 7.5 mg daily which she states has not been effective in treatment. She also states that she fractured her left ankle around Thanksgiving which continues to give her pain and is using crutches. She also attest to several episodes of vomiting which have now subsided. Patient reports absence of fever, chills, chest pain, palpitations, diaphoresis, constipation, diarrhea, dysuria. Labs completed in the ER significant for WBC 5.1, D-dimer 1.12, sodium 145, potassium 3.6, bicarb 28, BUN 5, glucose 102, initial lactic acid 4.0 => 2.7 => 3.2 => 3.8, magnesium 1.1, AST 121, troponin negative, CRP negative, procalcitonin 0.03, hCG negative, viral respiratory panel negative. EKG done in the ER independently interpreted showed sinus tachycardia heart rate of 103, no ST segment elevation or depression seen, no T-wave inversions seen. Chest x-ray done independently interpreted in the ER showed no acute process. CTA of chest done independently interpreted showed no evidence of pulmonary embolism, possible developing bilateral air space disease in upper lungs CT of the lumbar spine interpreted as no acute process or significant spinal stenosis, mild degenerative changes of lumbar spine as well as SI joint degeneration Acute abdomen series with findings of no acute abdominal process CT head and neck findings of no acute intracranial process with no evidence of cervical spinal fracture and mild multilevel degenerative disc disease Spoke with the ER physician, patient admission was accepted by internal medicine service for treatment. REVIEW OF SYSTEMS: Pertinent positives and negatives noted in HPI. PHYSICAL EXAMINATION: Vitals reviewed GENERAL: No acute distress. Well developed, well nourished. HEENT: Pupils are round and equally reacting to light. EOMI. Exophthalmos. Lateral eyebrows thinning. No scleral icterus. Normocephalic, atraumatic. Right-sided neck tenderness. CARDIOVASCULAR: S1 and S2 present. No murmurs, rubs, or gallops. PULMONARY: Chest is clear to auscultation, no wheezing, rhonchi, or crackles. ABDOMEN: Soft, right lower quadrant tenderness, nondistended, normoactive bowel sounds. No palpable organomegaly. MUSCULOSKELETAL: No apparent joint swelling and deformities. EXTREMITIES: No apparent cyanosis, clubbing, or pedal edema. NEUROLOGICAL: The patient is alert and oriented x3, Gross neurological examination did not reveal any focal deficits. SKIN: No apparent rashes. Assessment and plan Patient is a 44-year-old female presents with dizziness, back pain and shortness of breath. # Dizziness #Nausea and vomiting CT head neck no acute intracranial process and no evidence of spinal fracture, mild multilevel degenerative disc disease Continue acetaminophen every 6 hours as needed, Toradol every 6 hours as needed, Dilaudid every 3 hours as needed for pain management Continue Protonix, Reglan, Zofran, meclizine as needed for nausea vomiting TSH pending #Acute on chronic back pain CT lumbar spine findings as above Continue acetaminophen every 6 hours as needed, Toradol every 6 hours as needed, Dilaudid every 3 hours as needed for pain management Continue Norflex UA pending Dr. Baker orthopedic surgery consulted #Shortness of breath CTA of chest suggestive of bilateral upper airway disease Begin DuoNeb Continue azithromycin 500 mg and ceftriaxone 2 g daily day #1 Procalcitonin 0.03 Blood culture, sputum culture pending ID consulted #Hypomagnesia Given magnesium replacement Continue to monitor F: IV Normal saline 75 mL/hr E: Replete as needed N: Regular diet DVT ppx: Subq Lovenox 40 meq daily Code status: Full code Anticipated discharge place: Home Anticipated discharge time: 2 to 3 days Dictation was produced using [employer] dictation software. Please excuse any grammatical, word or spelling errors. Attestation I have seen and examined this patient with my resident , discussed the same with the resident/GILLIAN, and agree with the dictator's assessment and plan as written Dr. Michael chung Past Medical History Past Medical History: Asthma, Musculoskeletal Disorder Additional Past Medical History / Comment(s): anemia, "bulging disc in neck and lower back", neuropathy. Chronic neck and back problems. 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 One prior stillbirth and one set of twins. GALLBLADDER DISORDER History of Any Multi-Drug Resistant Organisms: None Reported Past Surgical History: Section, Cholecystectomy, Orthopedic Surgery, Tubal Ligation, Uterine Ablation Additional Past Surgical History / Comment(s): Endometrial ablation in 2017. section 2. RT Ankle surgery. COLONOSCOPY 04/19/22. Back surgery and left wrist surgery. Past Anesthesia/Blood Transfusion Reactions: No Reported Reaction Past Psychological History: Anxiety Smoking Status: Current every day smoker Past Alcohol Use History: Rare Past Drug Use History: None Reported - Past Family History Mother Family Medical History: Diabetes Mellitus, Deep Vein Thrombosis (DVT), Hypertens ion Additional Family Medical History / Comment(s): . Maternal uncle has hypertension and a maternal grandmother has diabetes. Maternal aunt had ovarian cancer, a maternal aunt also had breast cancer. Medications and Allergies Home Medications Medication Instructions Recorded Confirmed Type Cyanocobalamin (Vitamin B-12) 1,000 mcg PO DAILY 02/23/21 11/14/24 History [Vitamin B-12] Clobetasol Propionate [Temovate 1 applic TOPICAL BID PRN 11/14/24 11/14/24 History 0.05% Oint] Diclofenac Sodium Gel [Voltaren 1% 2 - 4 gm TOPICAL QID PRN 11/14/24 11/14/24 History Gel] HYDROcodone/APAP 7.5-325MG [[place] 1 tab PO BID 11/14/24 11/14/24 History 7.5-325] Multivitamins, Thera [Multivitamin 1 tab PO DAILY 11/14/24 11/14/24 History (formulary)] Pregabalin [Lyrica] 75 mg PO TID 11/14/24 11/14/24 History Allergies Allergy/AdvReac Type Severity Reaction Status Date / Time ketorolac [From Toradol] Allergy Rash/Hives Verified 11/14/24 09:31 methylprednisolone Allergy Rash/Hives Verified 11/14/24 09:31 Steroid (Does not know exact Allergy Rash/Hives Uncoded 10/16/24 16:55 name) Physical Exam Vitals: Vital Signs Temp Pulse Resp BP Pulse Ox 11/14/24 08:27 97.9 F 83 17 150/93 98 11/14/24 08:03 92 11/14/24 07:53 90 11/14/24 06:00 90 18 132/80 94 L 11/14/24 05:00 85 12 130/77 94 L 11/14/24 04:23 95 20 130/77 99 11/14/24 02:34 81 16 144/95 97 11/14/24 00:32 89 14 132/81 95 11/13/24 23:46 126 H 17 148/97 97 11/13/24 22:34 94 20 126/82 92 L 11/13/24 20:12 110 H 16 146/88 95 11/13/24 17:33 98.5 F 130 H 18 128/89 98 Intake and Output 11/13/24 11/14/24 11/14/24 22:59 06:59 14:59 Other: Weight 70.307 kg Results CBC & Chem 7: 11/15/24 07:15 11/15/24 07:15 Labs: Abnormal Lab Results - Last 24 Hours (Table) 11/13/24 11/13/24 11/13/24 Range/Units 19:44 19:47 19:47 D-Dimer 1.12 H (<0.60) mg/L FEU BUN 5 L (7-17) mg/dL Glucose 102 H (74-99) mg/dL Plasma Lactic Acid Ha 4.0 H* (0.7-2.0) mmol/L Magnesium 1.1 L (1.6-2.3) mg/dL AST 121 H (14-36) U/L 11/13/24 11/14/24 11/14/24 Range/Units 23:41 02:31 05:33 D-Dimer (<0.60) mg/L FEU BUN (7-17) mg/dL Glucose (74-99) mg/dL Plasma Lactic Acid Ha 2.7 H* 3.2 H* 3.8 H* (0.7-2.0) mmol/L Magnesium (1.6-2.3) mg/dL AST (14-36) U/L
--- NOTE | 2024-11-14 15:53 | P.PAINCN ---
History of Present Illness - Reason for Consult Consult date: 11/14/24 - History of Present Illness This is 44 years old female with history of chronic and severe low back pain she is diagnosed with lumbar radiculopathy and lumbar spondylosis with lumbar facet arthropathy, patient was treated as an outpatient with transforaminal epidural steroid injection, so she was getting pain medication [place] 7.5/325 every 6 hours as needed, and she was getting Lyrica 75 mg 3 times daily, medication was decreased by her primary care to [place] 7.5/325 twice a day and Lyrica to 75 mg twice a day, patient reported the current medication is not working and she is being severe low back pain with radiation to the lower extremity, also patient nausea and vomiting, and shortness of breath , because of her chronic and severe pain , pain management was consulted Past Medical History Past Medical History: Asthma, Musculoskeletal Disorder Additional Past Medical History / Comment(s): anemia, "bulging disc in neck and lower back", neuropathy. Chronic neck and back problems. 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 One prior stillbirth and one set of twins. GALLBLADDER DISORDER History of Any Multi-Drug Resistant Organisms: None Reported Past Surgical History: Section, Cholecystectomy, Orthopedic Surgery, Tubal Ligation, Uterine Ablation Additional Past Surgical History / Comment(s): Endometrial ablation in 2017. section 2. RT Ankle surgery. COLONOSCOPY 04/19/22. Back surgery and left wrist surgery. Past Anesthesia/Blood Transfusion Reactions: No Reported Reaction Past Psychological History: Anxiety Smoking Status: Current every day smoker Past Alcohol Use History: Rare Past Drug Use History: None Reported - Past Family History Mother Family Medical History: Diabetes Mellitus, Deep Vein Thrombosis (DVT), Hypertension Additional Family Medical History / Comment(s): . Maternal uncle has hypertension and a maternal grandmother has diabetes. Maternal aunt had ovarian cancer, a maternal aunt also had breast cancer. Medications and Allergies Home Medications Medication Instructions Recorded Confirmed Type Cyanocobalamin (Vitamin B-12) 1,000 mcg PO DAILY 02/23/21 11/14/24 History [Vitamin B-12] Clobetasol Propionate [[place] 1 applic TOPICAL BID PRN 11/14/24 11/14/24 History 0.05% Oint] Diclofenac Sodium Gel [Voltaren 1% 2 - 4 gm TOPICAL QID PRN 11/14/24 11/14/24 History Gel] HYDROcodone/APAP 7.5-325MG [[place] 1 tab PO BID 11/14/24 11/14/24 History 7.5-325] Multivitamins, Thera [Multivitamin 1 tab PO DAILY 11/14/24 11/14/24 History (formulary)] Pregabalin [Lyrica] 75 mg PO TID 11/14/24 11/14/24 History Allergies Allergy/AdvReac Type Severity Reaction Status Date / Time ketorolac [From Toradol] Allergy Rash/Hives Verified 11/14/24 09:31 methylprednisolone Allergy Rash/Hives Verified 11/14/24 09:31 Steroid (Does not know exact Allergy Rash/Hives Uncoded 10/16/24 16:55 name) Physical Exam Vitals: Vital Signs Temp Pulse Resp BP Pulse Ox 11/14/24 14:50 84 15 159/86 100 11/14/24 14:20 79 11/14/24 14:11 78 11/14/24 11:20 68 15 145/99 97 11/14/24 11:17 73 20 11/14/24 11:08 81 11/14/24 10:08 74 17 146/90 99 11/14/24 08:27 97.9 F 83 17 150/93 98 11/14/24 08:03 92 11/14/24 07:53 90 11/14/24 06:00 90 18 132/80 94 L 11/14/24 05:00 85 12 130/77 94 L 11/14/24 04:23 95 20 130/77 99 11/14/24 02:34 81 16 144/95 97 11/14/24 00:32 89 14 132/81 95 11/13/24 23:46 126 H 17 148/97 97 11/13/24 22:34 94 20 126/82 92 L 11/13/24 20:12 110 H 16 146/88 95 11/13/24 17:33 98.5 F 130 H 18 128/89 98 Physical Examinations : -Constitutiona : Cooperative , not in acute distress . -HEENT : nech : supple , no Lymphadenopathy , normal thyroid size . : eyes : no ptosis , no icterus, no photophobia . - neurologic : Cranial nerve II to XII intact , no focal neurological deffecit . -psychatric : alert , oriented X 3 , appropriate affect , intact judgment and insight . -Lymphatic : no Lymphadenopathy . - musculoskeltal : Cervical Spine motor stregnth in the deltoid and biceps, normal right side , normal Left side motor stregnth biceps and the wrist extensors normal right side ,normal left side . motor stregnth in the triceps muscle . normal Right side , normal Left side deep tendon reflexes normal at the biceps , normal at Brachioradialis , normal at triceps. cervical facet loading test: Positive Bilaterally Spurling test= positive Right , positive left. Neck distraction test= positive Right , positive left. Padma sign= positive right, positive left . Lumber spine moter stegnth lower extremities ,thigh and legs 5/5 Right side , 5/5 Left side deep tendon reflexes : normal Knee Jerk , normal ankle Jerk lumber facet Loading Test =positive Right , positive Left Range of motion of the lumbar spine Flexion 30 degrees, extension 10 degrees strait leg raising test = positive at 30 degree Fabere test= positive Right , and positive LT . Sever tenderness over the Sacroiliac joint on the Right , and Left sides Gaenslen test= positive right ,and positive left . Seated flexion test= positive right ,and positive Left . Distraction test= positive bilaterally Sacroiliac compression test= positive bilaterally. Generalized tenderness over the paraspinal muscles Results CBC & Chem 7: 11/14/24 12:05 11/14/24 12:05 Labs: Abnormal Lab Results - Last 24 Hours (Table) 11/13/24 11/13/24 11/13/24 Range/Units 19:44 19:47 19:47 D-Dimer 1.12 H (<0.60) mg/L FEU Sodium (137-145) mmol/L BUN 5 L (7-17) mg/dL Creatinine (0.52-1.04) mg/dL Glucose 102 H (74-99) mg/dL Plasma Lactic Acid Ha 4.0 H* (0.7-2.0) mmol/L Calcium (8.4-10.2) mg/dL Magnesium 1.1 L (1.6-2.3) mg/dL AST 121 H (14-36) U/L Urine Appearance (Clear) Ur Specific [place] (1.001-1.035) Urine Protein (Negative) Urine Blood (Negative) Ur Squamous Epith Cells (0-4) /hpf Amorphous Sediment (None) /hpf Urine Mucus (None) /hpf 11/13/24 11/14/24 11/14/24 Range/Units 23:41 02:31 05:33 D-Dimer (<0.60) mg/L FEU Sodium (137-145) mmol/L BUN (7-17) mg/dL Creatinine (0.52-1.04) mg/dL Glucose (74-99) mg/dL Plasma Lactic Acid Ha 2.7 H* 3.2 H* 3.8 H* (0.7-2.0) mmol/L Calcium (8.4-10.2) mg/dL Magnesium (1.6-2.3) mg/dL AST (14-36) U/L Urine Appearance (Clear) Ur Specific [place] (1.001-1.035) Urine Protein (Negative) Urine Blood (Negative) Ur Squamous Epith Cells (0-4) /hpf Amorphous Sediment (None) /hpf Urine Mucus (None) /hpf 11/14/24 11/14/24 11/14/24 Range/Units 07:08 08:27 12:05 D-Dimer (<0.60) mg/L FEU Sodium 136 L (137-145) mmol/L BUN 3 L (7-17) mg/dL Creatinine 0.49 L (0.52-1.04) mg/dL Glucose 106 H (74-99) mg/dL Plasma Lactic Acid Ha 2.4 H* (0.7-2.0) mmol/L Calcium 8.1 L (8.4-10.2) mg/dL Magnesium (1.6-2.3) mg/dL AST 101 H (14-36) U/L Urine Appearance Turbid H (Clear) Ur Specific [place] 1.038 H (1.001-1.035) Urine Protein Trace H (Negative) Urine Blood Trace H (Negative) Ur Squamous Epith Cells 8 H (0-4) /hpf Amorphous Sediment Few H (None) /hpf Urine Mucus Many H (None) /hpf Comments: Scan of the cervical spine cervical degenerative disc disease CT scan of the lumbar spine lumbar degenerative disc disease and sacroiliac joint degeneration Assessment and Plan Plan: Assessment and plan=1-lumbar radiculopathy. 2-degenerative disc disease. 3-lumbar spondylosis. 4-cervical degenerative disc disease. 5-myofascial pain syndrome lumbar paraspinal muscles. 6-sacroiliitis bilaterally. Patient was doing well on the previous regimen [place] 7.5/325 every 8 hours as needed. To primary care decrease the medication to twice a day, and also to decrease the Lyrica to 75 mg twice a day Recommend to increase [place] to 7.5/325 every 8 hours, he was doing well on this regimen, I recommend to increase Lyrica to 75 mg 3 times daily, also patient could benefit from muscle relaxant Zanaflex 4 mg 3 times daily Time with Patient: Less than 30 PQRS Measure Charge Sheet PQRS Narrative: Smoking Status Current every day smoker Narcotic Agreement Date Signed 10/02/24 Blood Pressure 159/86 Pain Intensity 10 Pain Scale Used Numeric (1 - 10) Scale Used Numeric (1 - 10) Hx Alcohol Use (MH) Yes: "2-3 beers every other day" Home Medications: Ambulatory Orders Cyanocobalamin (Vitamin B-12) [Vitamin B-12] 1,000 mcg PO DAILY 02/23/21 Clobetasol Propionate [Temovate 0.05% Oint] 1 applic TOPICAL BID PRN 11/14/24 Diclofenac Sodium Gel [Voltaren 1% Gel] 2 - 4 gm TOPICAL QID PRN 11/14/24 HYDROcodone/APAP 7.5-325MG [[place] 7.5-325] 1 tab PO BID 11/14/24 Multivitamins, Thera [Multivitamin (formulary)] 1 tab PO DAILY 11/14/24 Pregabalin [Lyrica] 75 mg PO TID 11/14/24
--- NOTE | 2024-11-14 16:28 | P.CNOR ---
History of Present Illness - HPI Consult date: 11/14/24 History of present illness: This is a 44 year old female who is admitted for pneumonia. Orthopedics is consulted to due back pain. Patient is seen and evaluated at bedside today. Patient states that she has had chronic back pain and had lower back surgery at an outside facility in November 2023. Patient states that she also has a pain man agement physician who recently gave her epidural injections a few weeks ago. Patient denies any new injury or symptoms related to her back. Patient states that she lives at home and usually ambulates with a cane, but she has a fractured foot so she is currently using crutches. Patient reports chronic radicular pain of bilateral lower extremities, but states this is her baseline. Patient denies any new numbness, weakness, or tingling. Patient states that she takes [place] daily for pain. Patient states that she wears a brace for her back occasionally. Review of Systems See HPI. Past Medical History Past Medical History: Asthma, Musculoskeletal Disorder Additional Past Medical History / Comment(s): anemia, "bulging disc in neck and lower back", neuropathy. Chronic neck and back problems. 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 One prior stillbirth and one set of twins. GALLBLADDER DISORDER History of Any Multi-Drug Resistant Organisms: None Reported Past Surgical History: Section, Cholecystectomy, Orthopedic Surgery, Tubal Ligation, Uterine Ablation Additional Past Surgical History / Comment(s): Endometrial ablation in 2016. section 2. RT Ankle surgery. COLONOSCOPY 04/19/22. Back surgery and left wrist surgery. Past Anesthesia/Blood Transfusion Reactions: No Reported Reaction Past Psychological History: Anxiety Smoking Status: Current every day smoker Past Alcohol Use History: Rare Past Drug Use History: None Reported - Past Family History Mother Family Medical History: Diabetes Mellitus, Deep Vein Thrombosis (DVT), Hypertension Additional Family Medical History / Comment(s): . Maternal uncle has hypertension and a maternal grandmother has diabetes. Maternal aunt had ovarian cancer, a maternal aunt also had breast cancer. Medications and Allergies Home Medications Medication Instructions Recorded Confirmed Type Cyanocobalamin (Vitamin B-12) 1,000 mcg PO DAILY 02/23/21 11/14/24 History [Vitamin B-12] Clobetasol Propionate [Temov[place] 1 applic TOPICAL BID PRN 11/14/24 11/14/24 History 0.05% Oint] Diclofenac Sodium Gel [Voltaren 1% 2 - 4 gm TOPICAL QID PRN 11/14/24 11/14/24 History Gel] Multivitamins, Thera [Multivitamin 1 tab PO DAILY 11/14/24 11/14/24 History (formulary)] Pregabalin [Lyrica] 75 mg PO TID 11/14/24 11/14/24 History HYDROcodone/APAP 7.5-325MG [[place] 1 each PO TID #9 tab 11/15/24 Rx 7.5-325] cefuroxime axetiL [Ceftin] 500 mg PO BID #6 tab 11/15/24 Rx Allergies Allergy/AdvReac Type Severity Reaction Status Date / Time ketorolac [From Toradol] Allergy Rash/Hives Verified 11/14/24 09:31 methylprednisolone Allergy Rash/Hives Verified 11/14/24 09:31 Steroid (Does not know exact Allergy Rash/Hives Uncoded 10/16/24 16:55 name) Physical Examination On exam patient is resting comfortably in bed in no acute distress. Patient is alert and oriented x3. Patient moves bilateral upper and lower extremities freely. There is generalized tenderness to palpation over the lower back. No erythema, swelling, step-offs or deformities. Sensation intact bilateral upper and lower extremities. Neurovascular status and circulatory status are intact. Results A CT report of the lumbar spine dated 11/13/2024 shows: 1. No acute process or significant spinal canal stenosis. 2. Mild degenerative changes of the lumbar spine as well as moderate SI joint degeneration, left greater than right. A CT report of the brain and C-spine dated 11/14/2024 shows: 1. No acute intracranial process. 2. No evidence of cervical spine fracture. 3. Mild multilevel degenerative disc disease. - Labs Labs: Abnormal Lab Results - Last 24 Hours (Table) 11/13/24 11/13/24 11/13/24 Range/Units 19:44 19:47 19:47 D-Dimer 1.12 H (<0.60) mg/L FEU Sodium (137-145) mmol/L BUN 5 L (7-17) mg/dL Creatinine (0.52-1.04) mg/dL Glucose 102 H (74-99) mg/dL Plasma Lactic Acid Ha 4.0 H* (0.7-2.0) mmol/L Calcium (8.4-10.2) mg/dL Magnesium 1.1 L (1.6-2.3) mg/dL AST 121 H (14-36) U/L 11/13/24 11/14/24 11/14/24 Range/Units 23:41 02:31 05:33 D-Dimer (<0.60) mg/L FEU Sodium (137-145) mmol/L BUN (7-17) mg/dL Creatinine (0.52-1.04) mg/dL Glucose (74-99) mg/dL Plasma Lactic Acid Ha 2.7 H* 3.2 H* 3.8 H* (0.7-2.0) mmol/L Calcium (8.4-10.2) mg/dL Magnesium (1.6-2.3) mg/dL AST (14-36) U/L 11/14/24 11/14/24 Range/Units 08:27 12:05 D-Dimer (<0.60) mg/L FEU Sodium 136 L (137-145) mmol/L BUN 3 L (7-17) mg/dL Creatinine 0.49 L (0.52-1.04) mg/dL Glucose 106 H (74-99) mg/dL Plasma Lactic Acid Ha 2.4 H* (0.7-2.0) mmol/L Calcium 8.1 L (8.4-10.2) mg/dL Magnesium (1.6-2.3) mg/dL AST 101 H (14-36) U/L H & H 11/13/24 11/14/24 Range/Units 19:47 12:05 Hgb 14.6 12.2 (11.4-16.0) gm/dL Hct 45.2 38.7 (34.0-46.0) % Coagulation 11/13/24 Range/Units 19:47 INR 1.1 (<1.2) Result Diagrams: 11/15/24 07:15 11/15/24 07:15 Assessment and Plan (1) Chronic back pain Status: Acute Code(s): M54.9 - DORSALGIA, UNSPECIFIED; G89.29 - OTHER CHRONIC PAIN SNOMED Code(s): 956524631 (2) Bilateral pneumonia Status: Acute Code(s): J18.9 - PNEUMONIA, UNSPECIFIED ORGANISM SNOMED Code(s): 629677298 Plan: 1. CT scans are negative for any acute process. Patient has a history of chronic back pain and follows with pain management and a housing development specialist. 2. Consult to pain management. 3. Patient is to follow-up with her housing development specialist and pain management physician once discharged. Agree with the above H&P. At this time no acute surgical intervention is warranted. Agree with pain managment consultation while in house for recommendations for multimodal pain regimen.
--- NOTE | 2024-11-14 23:18 | P.CONS ---
History of Present Illness - Reason for Consult Consult date: 11/14/24 Bilateral pneumonia Requesting physician: Michael Kinsey - Chief Complaint Back pain and shortness of breath x days - History of Present Illness Patient is a 44-year-old -[place] female with a past medical history significant for chronic back pain and asthma presenting to the hospital for evaluation of increasing lower back pain as well as shortness of breath and this patient symptom has been getting worse over the last few days patient denies any history of trauma describing the pain to be sharp and moderate in intensity without any radiation also complaining of increasing shortness of breath patient did mention to the ER physician productive cough however denied any comfortably and was complaining of mostly pain radiating to the left arm denies having any nausea no vomiting no choking on the food no abdominal pain or diarrhea on presentation to the hospital patient was afebrile no fever have been recorded subsequently patient was tachycardic but not hypotensive not hypoxic and no need for supplemental oxygen patient did have a white count of 5.1 creatinine 0.60 lactic acid was elevated 2.7 liver enzymes are normal influenza RSV COVID testing has been negative UA has been negative patient did have a chest x-ray no acute cardiopulmonary disease process he did have a CT angiogram of the chest no evidence of PE there was concern for developing by lateral airspace disease within the upper lungs patient has been started on Rocephin and Zithromax infe ctious disease was consulted for possible pneumonia Review of Systems Positive point and negatives has been mentioned in the HPI, complete review of systems was performed and all other systems are negative Past Medical History Past Medical History: Asthma, Musculoskeletal Disorder Additional Past Medical History / Comment(s): anemia, "bulging disc in neck and lower back", neuropathy. Chronic neck and back problems. Past [employer] history: HPV in the past. One prior stillbirth and one set of twins. GALLBLADDER DISORDER History of Any Multi-Drug Resistant Organisms: None Reported Past Surgical History: Section, Cholecystectomy, Orthopedic Surgery, Tubal Ligation, Uterine Ablation Additional Past Surgical History / Comment(s): Endometrial ablation in 2017. section 2. RT Ankle surgery. COLONOSCOPY 04/19/22. Back surgery and left wrist surgery. Past Anesthesia/Blood Transfusion Reactions: No Reported Reaction Past Psychological History: Anxiety Smoking Status: Current every day smoker Past Alcohol Use History: Rare Past Drug Use History: None Reported - Past Family History Mother Family Medical History: Diabetes Mellitus, Deep Vein Thrombosis (DVT), Hypertension Additional Family Medical History / Comment(s): . Maternal uncle has hypertension and a maternal grandmother has diabetes. Maternal aunt had ovarian cancer, a maternal aunt also had breast cancer. Medications and Allergies Home Medications Medication Instructions Recorded Confirmed Type RX: Cyanocobalamin (Vitamin B-12) 1,000 mcg PO DAILY 02/23/21 11/14/24 History [Vitamin B-12] Clobetasol Propionate [Temovate 1 applic TOPICAL BID PRN 11/14/24 11/14/24 History 0.05% Oint] HYDROcodone/APAP 7.5-325MG [Dudley 1 tab PO BID 11/14/24 11/14/24 History 7.5-325] Multivitamins, Thera [Multivitamin 1 tab PO DAILY 11/14/24 11/14/24 History (formulary)] Pregabalin [Lyrica] 75 mg PO TID 11/14/24 11/14/24 History RX: Diclofenac Sodium Gel 2 - 4 gm TOPICAL QID PRN 11/14/24 11/14/24 History [Voltaren 1% Gel] Allergies Allergy/AdvReac Type Severity Reaction Status Date / Time ketorolac [From Toradol] Allergy Rash/Hives Verified 11/14/24 09:31 methylprednisolone Allergy Rash/Hives Verified 11/14/24 09:31 Steroid (Does not know exact Allergy Rash/Hives Uncoded 10/16/24 16:55 name) Physical Exam Vitals: Vital Signs Temp Pulse Resp BP Pulse Ox 11/14/24 11:20 68 15 145/99 97 11/14/24 11:17 73 20 11/14/24 11:08 81 11/14/24 10:08 74 17 146/90 99 11/14/24 08:27 97.9 F 83 17 150/93 98 11/14/24 08:03 92 11/14/24 07:53 90 11/14/24 06:00 90 18 132/80 94 L 11/14/24 05:00 85 12 130/77 94 L 11/14/24 04:23 95 20 130/77 99 11/14/24 02:34 81 16 144/95 97 11/14/24 00:32 89 14 132/81 95 11/13/24 23:46 126 H 17 148/97 97 11/13/24 22:34 94 20 126/82 92 L 11/13/24 20:12 110 H 16 146/88 95 11/13/24 17:33 98.5 F 130 H 18 128/89 98 Intake and Output 11/13/24 11/14/24 11/14/24 22:59 06:59 14:59 Other: Weight 70.307 kg GENERAL DESCRIPTION: Middle-aged female lying in bed, no distress. No tachypnea or accessory muscle of respiration use. HEENT: Shows Pallor , no scleral icterus. Oral mucous membrane is dry. No pharyngeal erythema or thrush NECK: Trachea central, no thyromegaly. LUNGS: Unlabored breathing. Decreased breath sound bases HEART: S1, S2, regular rate and rhythm. No loud murmur ABDOMEN: Soft, mild right-sided tenderness , EXTREMITIES: No edema of feet. SKIN: No rash, no masses palpable. NEUROLOGICAL: The patient is awake, alert, oriented x3, mood and affect normal. Results CBC & Chem 7: 11/14/24 12:05 11/14/24 12:05 Labs: Abnormal Lab Results - Last 24 Hours (Table) 11/13/24 11/13/24 11/13/24 Range/Units 19:44 19:47 19:47 D-Dimer 1.12 H (<0.60) mg/L FEU BUN 5 L (7-17) mg/dL Glucose 102 H (74-99) mg/dL Plasma Lactic Acid Ha 4.0 H* (0.7-2.0) mmol/L Magnesium 1.1 L (1.6-2.3) mg/dL AST 121 H (14-36) U/L 11/13/24 11/14/24 11/14/24 Range/Units 23:41 02:31 05:33 D-Dimer (<0.60) mg/L FEU BUN (7-17) mg/dL Glucose (74-99) mg/dL Plasma Lactic Acid Ha 2.7 H* 3.2 H* 3.8 H* (0.7-2.0) mmol/L Magnesium (1.6-2.3) mg/dL AST (14-36) U/L 11/14/24 Range/Units 08:27 D-Dimer (<0.60) mg/L FEU BUN (7-17) mg/dL Glucose (74-99) mg/dL Plasma Lactic Acid Ha 2.4 H* (0.7-2.0) mmol/L Magnesium (1.6-2.3) mg/dL AST (14-36) U/L Assessment and Plan (1) Bilateral pneumonia Current Visit: Yes Status: Acute Code(s): J18.9 - PNEUMONIA, UNSPECIFIED ORGANISM SNOMED Code(s): 406080009 Plan: 1patient presented to hospital with intractable lower back pain as a pain to the left arm also complaining of shortness of breath some cough with abnormality seen on the CT abdominal chest concerning for possible pneumonia however the patient not running any fever no elevated white count clinically not behaving as pneumonia 2-try to be distributed for Gram stain culture check a CRP and procalcitonin 3-May continue with the Rocephin and Zithromax while waiting for the workup to be completed We will follow on clinical condition and cultures to further adjust medication if needed Thank you for this consultation we will follow the patient along with you Dictation was produced using [employer] dictation software. please excuse any grammatical, word or spelling errors.
[2024-11-15] MEDS: tiZANidine 4 MG TAB PO PRN (06:17)
[2024-11-15] MEDS: PANTOPRAZOLE 40 MG TABLET PO SCH (06:17)
[2024-11-15 07:56] LABS: Basophils % (A) 0 %; Eosinophils # (A) 0.1 k/uL (0-0.7); Eosinophils % (A) 3 %; HCT 36.2 % (34.0-46.0); HGB 11.8 gm/dL (11.4-16.0); Lymphocytes # (A) 1.7 k/uL (1.0-4.8); Lymphocytes % (A) 39 %; MCH 29.3 pg (25.0-35.0); MCHC 32.4 g/dL (31.0-37.0); MCV 90.4 fL (80.0-100.0); Mean Platelet Volume 7.9; Monocytes # (A) 0.1 k/uL (0-1.0); Monocytes % (A) 3 %; Neutrophils # (A) 2.3 k/uL (1.3-7.7); Neutrophils % (A) 53 %; Platelet Count 266 k/uL (150-450); RBC 4.01 m/uL (3.80-5.40); RDW 12.4 % (11.5-15.5); WBC 4.3 k/uL (3.8-10.6)
[2024-11-15 08:12] LABS: ALT 22 U/L (4-34); AST 62 U/L (14-36); African American GFR (CKD) >90 (>60 ml/min/1.73 sqM); Albumin 3.5 g/dL (3.5-5.0); Albumin/Globulin Ratio 1.3; Alkaline Phosphatase 78 U/L (38-126); Anion Gap 6 mmol/L; Blood Urea Nitrogen 3 mg/dL (7-17); Calcium 8.2 mg/dL (8.4-10.2); Carbon Dioxide 32 mmol/L (22-30); Chloride 98 mmol/L (98-107); Globulin 2.8 g/dL; Glucose 102 mg/dL (74-99); Non-African American GFR(CKD) >90 (>60 ml/min/1.73 sqM); Potassium 3.4 mmol/L (3.5-5.1); Sodium 136 mmol/L (137-145); Total Bilirubin 0.7 mg/dL (0.2-1.3); Total Protein 6.3 g/dL (6.3-8.2)
[2024-11-15] MEDS: ENOXAPARIN 40 MG/0.4 ML SYRINGE SQ SCH (09:35)
[2024-11-15] MEDS ORDERED: PREGABALIN 75 MG CAP PO SCH (10:00)
[2024-11-15] MEDS ORDERED: HYDROcodone/APAP 7.5-325MG 1 EACH TAB PO SCH (10:00)
[2024-11-15] MEDS: HYDROcodone/APAP 7.5-325MG 1 EACH TAB PO SCH (11:27)
[2024-11-15] MEDS: PREGABALIN 75 MG CAP PO SCH (11:28)
[2024-11-15] MEDS: POTASSIUM CHLORIDE ER 20 MEQ TAB.ER PO STA (11:28)
[2024-11-15 14:08] VITALS: BP 138/88; PULSE 77; RESP 16; TEMP 98.3
--- NOTE | 2024-11-15 14:59 | P.DS ---
Providers Date of admission: 11/13/24 22:26 Expected date of discharge: 11/15/24 Attending physician: Jazzy Pelayo Consults: 11/14/24 05:05 Consult Physician Urgent Consulting Provider: Vish Baker Consult Reason/Comments: Intractable back pain Do you want consulting provider notified?: Yes 11/14/24 10:42 Consult Physician Routine Consulting Provider: Harley Romero Consult Reason/Comments: Bilateral pneumonia Do you want consulting provider notified?: Yes Primary care physician: [facility] Course: Discharge diagnoses; # Dizziness #Nausea and vomiting #Acute on chronic back pain #Pneumonia, unspecified #Hypomagnesia Hospital course; History of present illness; Patient is a 44-year-old female presents with dizziness, back pain and shortness of breath. She has had dizziness and headache and some ongoing for the last several days. Headache concentrated around her right eye, constant pressure- like sensation. She also attest to this when she extends her neck. Her back pain symptoms have been ongoing for the last 8 years. Denying loss of bladder or bowel or saddle anesthesia. She is seeing pain management has been taking Mclean however this was reduced to 7.5 mg daily which she states has not been effective in treatment. She also states that she fractured her left ankle around Thanksgiving which continues to give her pain and is using crutches. She also attest to several episodes of vomiting which have now subsided. Patient reports absence of fever, chills, chest pain, palpitations, diaphoresis, constipation, d iarrhea, dysuria. Labs completed in the ER significant for WBC 5.1, D-dimer 1.12, sodium 145, potassium 3.6, bicarb 28, BUN 5, glucose 102, initial lactic acid 4.0 => 2.7 => 3.2 => 3.8, magnesium 1.1, AST 121, troponin negative, CRP negative, procalcitonin 0.03, hCG negative, viral respiratory panel negative. EKG done in the ER independently interpreted showed sinus tachycardia heart rate of 103, no ST segment elevation or depression seen, no T-wave inversions seen. Chest x-ray done independently interpreted in the ER showed no acute process. CTA of chest done independently interpreted showed no evidence of pulmonary embolism, possible developing bilateral air space disease in upper lungs CT of the lumbar spine interpreted as no acute process or significant spinal stenosis, mild degenerative changes of lumbar spine as well as SI joint degeneration Acute abdomen series with findings of no acute abdominal process CT head and neck findings of no acute intracranial process with no evidence of cervical spinal fracture and mild multilevel degenerative disc disease During hospital stay patient treated for dizziness with nausea and vomiting, acute on chronic back pain and shortness of breath. Multiple scans of head and neck lumbar spine showing no signs of spinal fracture with mild multilevel degenerative disc disease. She was also seen by pain management and orthopedic surgery. It was recommended by pain management to increase Mclean 7.5/325 to every 8 hours and increase Lyrica 75 to 3 times a day and that they may benefit from Zanaflex 4 mg 3 times a day. Maps was referenced with last prescription of Mclean in early October with 60 pills for 30-day supply. She will be given Mclean 7.5/325 3 times daily for 3 days 9 pills. Patient is stable for discharge to home. She will be given Mclean 7.5/325 3 times daily for 3 days 9 pills, and Ceftin 500 mg twice daily for 3 days for treatment of pneumonia. 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 REVIEW OF SYSTEMS: Pertinent positives and negatives noted in HPI. PHYSICAL EXAMINATION: Vitals reviewed GENERAL: No acute distress. Well developed, well nourished. HEENT: Pupils are round and equally reacting to light. EOMI. Exophthalmos. Lateral eyebrows thinning. No scleral icterus. Normocephalic, atraumatic. Right-sided neck tenderness. CARDIOVASCULAR: S1 and S2 present. No murmurs, rubs, or gallops. PULMONARY: Chest is clear to auscultation, no wheezing, rhonchi, or crackles. ABDOMEN: Soft, nontender, nondistended, normoactive bowel sounds. No palpable organomegaly. MUSCULOSKELETAL: No apparent joint swelling and deformities. EXTREMITIES: No apparent cyanosis, clubbing, or pedal edema. NEUROLOGICAL: The patient is alert and oriented x3, Gross neurological examination did not reveal any focal deficits. SKIN: No apparent rashes. Dictation was produced using [email or web address] software. please excuse any grammatical, word or spelling errors. I have seen and examined this patient with my resident , discussed the same with the resident/GILLIAN, and agree with the dictator's assessment and plan as written Dr. Michael chung Patient Condition at Discharge: Stable Plan - Discharge Summary Discharge Rx Participant: No New Discharge Prescriptions: New cefuroxime axetiL [Ceftin] 500 mg PO BID #6 tab HYDROcodone/APAP 7.5-325MG [Mclean 7.5-325] 1 each PO TID #9 tab Continue Cyanocobalamin (Vitamin B-12) [Vitamin B-12] 1,000 mcg PO DAILY Pregabalin [Lyrica] 75 mg PO TID Diclofenac Sodium Gel [Voltaren 1% Gel] 2 - 4 gm TOPICAL QID PRN PRN Reason: Pain Multivitamins, Thera [Multivitamin (formulary)] 1 tab PO DAILY Clobetasol Propionate [Temovate 0.05% Oint] 1 applic TOPICAL BID PRN PRN Reason: vulvar irritation Discontinued HYDROcodone/APAP 7.5-325MG [Mclean 7.5-325] 1 tab PO BID Discharge Medication List Cyanocobalamin (Vitamin B-12) [Vitamin B-12] 1,000 mcg PO DAILY 02/23/21 [History] Clobetasol Propionate [Temovate 0.05% Oint] 1 applic TOPICAL BID PRN 11/14/24 [History] Diclofenac Sodium Gel [Voltaren 1% Gel] 2 - 4 gm TOPICAL QID PRN 11/14/24 [History] Multivitamins, Thera [Multivitamin (formulary)] 1 tab PO DAILY 11/14/24 [History] Pregabalin [Lyrica] 75 mg PO TID 11/14/24 [History] HYDROcodone/APAP 7.5-325MG [Mclean 7.5-325] 1 each PO TID #9 tab 11/15/24 [Rx] cefuroxime axetiL [Ceftin] 500 mg PO BID #6 tab 11/15/24 [Rx] Follow up Appointment(s)/Referral(s): [facility] [NON-STAFF] - 1 Week Suzanne Desouza MD [Primary Care Provider] - 1-2 days (Office is closed at time of discharge. Please call for follow-up appointment.) Patient Instructions/Handouts: Chronic Back Pain (DC) Discharge Disposition: HOME SELF-CARE
== END 2024-11-15 15:09 | disposition home or self-care (01) ==
LOC: EC 17:29 → 4SSUR 22:26
PROVIDERS: ADMIT Hospitalist; ATTEND Hospitalist
DX: R42 Dizziness and giddiness (principal); R11.2 Nausea with vomiting, unspecified; M47.26 Other spondylosis with radiculopathy, lumbar region; M51.16 Intervertebral disc disorders with radiculopathy, lumbar region; G89.29 Other chronic pain; J18.9 Pneumonia, unspecified organism; E83.42 Hypomagnesemia; E87.20 Acidosis, unspecified; S82.892D Other fracture of left lower leg, subsequent encounter for closed fracture with routine healing; X58.XXXD Exposure to other specified factors, subsequent encounter; F17.200 Nicotine dependence, unspecified, uncomplicated; J45.909 Unspecified asthma, uncomplicated; Z88.8 Allergy status to other drugs, medicaments and biological substances; Z79.899 Other long term (current) drug therapy; Z88.5 Allergy status to narcotic agent
CPT/HCPCS: 96376 ×3; 96361 ×2; 96365 ×2; 96366 ×2; 96367 ×2; 96372; 96375 ×2; 99285; 36415; 94640 ×2; 93005; 85379; 83880; 80053 ×3; 87449; 84443; 83605 ×2; 83735; 84484; 85025 ×3; 85610; 85730; 86140; 81001; 84703; 87040; 84145; 87636; 74022; 71046; 72125; 72131; 70450; 71275; G0378 ×3; J2360; J2765; J2405; J0456; J0696 ×3; J1650; J1171 ×5; J3475; J1885; Q9967; J2470

== ENCOUNTER → 2025-01-26 | Outpatient (CLI) | payer OTHER ==
--- NOTE | 2025-01-26 09:37 | MR ---
EXAMINATION TYPE: MR brain wo/w con DATE OF EXAM: 01/26/2025 9:23 AM COMPARISON: 11/14/2024. CLINICAL INDICATION: Female, 44 years old with history of M50.90 CERVICAL DISC DISEASE R51.9 WORSENIN G HE; PHH, Dizziness, neck pain, migraines TECHNIQUE: Multi planar, multi sequence imaging was performed through the brain including: T1, T2, In version recovery, susceptibility weighted imaging and gradient echo imaging and Diffusion weighted im aging. The patient was then given intravenous contrast and multi planar, T1 fat-saturation images wer e obtained. IV Contrast: 7 mL Gadobutrol FINDINGS: The lópez-white junctions, ventricular system, basal cisterns appear unremarkable. Diffusion-weighted imaging shows no evidence of restricted diffusion to suggest acute/subacute infarct. Intracranial ar terial flow voids are maintained. Midline structures show no abnormality. The susceptibility weighted images do not reveal any evidence for micro-hemorrhage. After administration of gadolinium, no abnor mal enhancement is seen. The bone marrow signal is within normal limits. Paranasal sinuses and mastoid air cells: Retention cyst left maxillary sinus. Dictated T1 signal poss ible polyp underlying measuring 9 mm. Visualized orbits: Orbital contents are intact. IMPRESSION: 1. No evidence of intracranial mass, acute/subacute infarct, or abnormal enhancement. 2. Left maxillary sinus retention cyst with possible underlying polyp measuring 9 mm. [facility], , 01/26/2025 9:35 AM
--- NOTE | 2025-01-26 10:40 | US ---
EXAMINATION TYPE: US thyroid st tissue head/neck DATE OF EXAM: 01/26/2025 COMPARISON: Prior thyroid ultrasound June 16, 2022 CLINICAL INDICATION: Female, 44 years old with history of E041 THYROID NODULE; thyroid nodules TECHNIQUE: Grayscale and color Doppler imaging of the thyroid gland. FINDINGS: GLAND SIZE: Right Lobe: 5.7 x 1.7 x 1.8 cm Overall Parenchyma: homogeneous Left Lobe: 5.2 x 1.8 x 2.2 cm Overall Parenchyma: homogeneous Isthmus Thickness: .2 cm NODULES RIGHT: # of nodules measured on right: 1. .8 X .5 x .7 cm, lower medial, solid or almost completely solid, hypoechoic nodule, which is wi jaylon than tall, with smooth margins, without echogenic foci. TR 4 lesion. Prior size: 1.0 x .6 x .8 cm LEFT: # of nodules measured on left: 1 1. 1.8 X 1.1 x 1.1 cm, mid , solid or almost completely solid, hypoechoic nodule, which is wider th an tall, with lobulated or irregular margins, with macrocalcification. TR 5 lesion. Prior size: 1.2 x 1.2 x 1.1 cm ISTHMUS: # of nodules measured in the isthmus: 0 Bilateral neck scanned, no evidence of lymphadenopathy. IMPRESSION: Grossly stable study including dominant most suspicious left-sided thyroid nodule. Correl ate clinically. 2017 ACR TI-RADS LEVEL: TI-RADS 5 - Highly Suspicious: Follow if > 0.5 cm, FNA if > 1.0 cm *Highest TI-RADS level nodule reported [email or web address] [facility], , 01/26/2025 10:37 AM
== END | disposition home or self-care (01) ==
LOC: RADMRIMAIN 08:29
PROVIDERS: ATTEND Family Medicine
DX: E04.2 Nontoxic multinodular goiter (principal); R51.9 Headache, unspecified; M50.90 Cervical disc disorder, unspecified, unspecified cervical region; J34.89 Other specified disorders of nose and nasal sinuses
CPT/HCPCS: 76536; 70553; A9585

== ENCOUNTER 2025-03-29 19:24 | Emergency (ER) | payer OTHER ==
[2025-03-29 19:35] VITALS: RESP 18
--- NOTE | 2025-03-29 20:04 | ED ---
General Adult HPI - General Chief complaint: Back Pain/Injury Stated complaint: left side pain Time Seen by Provider: 03/29/25 19:49 Source: patient, RN notes reviewed Mode of arrival: ambulatory Limitations: no limitations - History of Present Illness Initial comments: 44-year-old female with history of chronic back pain pelvic pain management presented emergency department complaint of left flank pain with radiation to the front of the abdomen that has been worsening over the past 3 days hours been present intermittently over the past week. Patient denies hematuria, increased urinary frequency or urgency, diarrhea, constipation. Denies nausea, vomiting, fevers, chills. States that she is prescribed [place] for pain management that has been minimally relieving her symptoms. - Related Data Home Medications Medication Instructions Recorded Confirmed Cyanocobalamin (Vitamin B-12) 1,000 mcg PO DAILY 02/23/21 11/14/24 [Vitamin B-12] Clobetasol Propionate [Temovate 1 applic TOPICAL BID PRN 11/14/24 11/14/24 0.05% Oint] Diclofenac Sodium Gel [Voltaren 1% 2 - 4 gm TOPICAL QID PRN 11/14/24 11/14/24 Gel] Multivitamins, Thera [Multivitamin 1 tab PO DAILY 11/14/24 11/14/24 (formulary)] Pregabalin [Lyrica] 75 mg PO TID 11/14/24 11/14/24 Previous Rx's Medication Instructions Recorded HYDROcodone/APAP 7.5-325MG [[place] 1 each PO TID #9 tab 11/15/24 7.5-325] cefuroxime axetiL [Ceftin] 500 mg PO BID #6 tab 11/15/24 Allergies Allergy/AdvReac Type Severity Reaction Status Date / Time ketorolac [From Toradol] Allergy Rash/Hives Verified 03/29/25 19:35 methylprednisolone Allergy Rash/Hives Verified 03/29/25 19:35 Steroid (Does not know exact Allergy Rash/Hives Uncoded 03/29/25 19:35 name) Review of Systems ROS Statement: Those systems with pertinent positive or pertinent negative responses have been documented in the HPI. ROS Other: All systems not noted in ROS Statement are negative. Past Medical History Past Medical History: Asthma, Musculoskeletal Disorder Additional Past Medical History / Comment(s): anemia, "bulging disc in neck and lower back", neuropathy. Chronic neck and back problems. 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 One prior stillbirth and one set of twins. GALLBLADDER DISORDER History of Any Multi-Drug Resistant Organisms: None Reported Past Surgical History: Section, Cholecystectomy, Orthopedic Surgery, Tubal Ligation, Uterine Ablation Additional Past Surgical History / Comment(s): Endometrial ablation in 2017. section 2. RT Ankle surgery. COLONOSCOPY 04/19/22. Back surgery and left wrist surgery. Past Anesthesia/Blood Transfusion Reactions: No Reported Reaction Past Psychological History: Anxiety Smoking Status: Current every day smoker Past Alcohol Use History: Rare Past Drug Use History: None Reported - Past Family History Mother Family Medical History: Diabetes Mellitus, Deep Vein Thrombosis (DVT), Hypertension Additional Family Medical History / Comment(s): . Maternal uncle has hypertension and a maternal grandmother has diabetes. Maternal aunt had ovarian cancer, a maternal aunt also had breast cancer. General Exam Limitations: no limitations General appearance: alert, in no apparent distress ENT exam: Present: normal exam, mucous membranes moist Neck exam: Present: normal inspection. Absent: tenderness, meningismus, lymphadenopathy Respiratory exam: Present: normal lung sounds bilaterally. Absent: respiratory distress, wheezes, rales, rhonchi, stridor Cardiovascular Exam: Present: regular rate, normal rhythm, normal heart sounds. Absent: systolic murmur, diastolic murmur, rubs, gallop, clicks GI/Abdominal exam: Present: soft, tenderness (left mid-abdomen), normal bowel sounds. Absent: distended, guarding, rebound, rigid Extremities exam: Present: normal inspection, full ROM, normal capillary refill. Absent: tenderness, pedal edema, joint swelling, calf tenderness Back exam: Present: normal inspection, CVA tenderness (L). Absent: CVA tende rness (R) Skin exam: Present: warm, dry, intact, normal color. Absent: rash Course Vital Signs 03/29/25 03/29/25 19:32 21:36 Temperature 99 F 98.1 F Pulse Rate 92 88 Respiratory 18 18 Rate Blood Pressure 134/92 119/79 O2 Sat by Pulse 98 99 Oximetry Medical Decision Making - Medical Decision Making Was pt. sent in by a medical professional or institution (, PA, ASSISTANT PROFESSOR OF RADIOLOGY, urgent care, hospital, or senior care...) When possible be specific @ -No Did you speak to anyone other than the patient for history (EMS, parent, family, police, friend...)? What history was obtained from this source @ -No Did you review nursing and triage notes (agree or disagree)? Why? @ -I reviewed and agree with nursing and triage notes Were old charts reviewed (outside hosp., previous admission, EMS record, old EKG, old radiological studies, urgent care reports/EKG's, senior care records)? Report findings @ -No old charts were reviewed Differential Diagnosis (chest pain, altered mental status, abdominal pain women, abdominal pain men, vaginal bleeding, weakness, fever, dyspnea, syncope, headache, dizziness, GI bleed, back pain, seizure, CVA, palpatations, mental health, musculoskeletal)? @ -Differential Back Pain: Strain, zoster, cauda equina syndrome, epidural abscess, vertebral osteomyelitis, discitis, fracture, subluxation, disc herniation, DJD, spinal s tenosis, dissection, AAA, pancreatitis, peptic ulcer disease, pyelonephritis, kidney stone, this is not meant to be an all-inclusive list. EKG interpreted by me (3pts min.). @ -None X-rays interpreted by me (1pt min.). @ -None done CT interpreted by me (1pt min.). @ - CT of the abdomen pelvis without IV contrast reveals no evidence of acute abdominal or pelvic process with no evidence obstructive uropathy. U/S interpreted by me (1pt. min.). @ -None done What testing was considered but not performed or refused? (CT, X-rays, U/S, labs)? Why? @ -None What meds were considered but not given or refused? Why? @ -None Did you discuss the management of the patient with other professionals (professionals i.e. , PA, ASSISTANT PROFESSOR OF RADIOLOGY, lab, RT, psych nurse, clinical social worker, environmental lawyer, teacher, commissary officer, binder caser)? Give summary @ -No Was smoking cessation discussed for >3mins.? @ -No Was critical care preformed (if so, how long)? @ -No Were there social determinants of health that impacted care today? How? (Homelessness, low income, unemployed, alcoholism, drug addiction, transpo rtation, low edu. Level, literacy, decrease access to med. care, longterm, rehab)? @ -No Was there de-escalation of care discussed even if they declined (Discuss DNR or withdrawal of care, Hospice)? DNR status @ -No What co-morbidities impacted this encounter? (DM, HTN, Smoking, COPD, CAD, Cancer, CVA, ARF, Chemo, Hep., AIDS, mental health diagnosis, sleep apnea, morbid obesity)? @ -None Was patient admitted / discharged? Hospital course, mention meds given and route, prescriptions, significant lab abnormalities, going to OR and other pertinent info. @ -Discharge. 44-year-old female presenting emergency department with complaints of left flank pain. Pain is reproducible on examination and patient is provided with dose of morphine for pain control. Laboratory testing is grossly unremarkable including CBC, CMP, urinalysis. CT imaging reveals no acute process or evidence of obstructive uropathy. Patient divided with Toradol patch and started to follow-up as scheduled with pain management. Case discussed with Dr. Milian Undiagnosed new problem with uncertain prognosis? @ -No Drug Therapy requiring intensive monitoring for toxicity (Heparin, Nitro, Insulin, Cardizem)? @ -No Were any procedures done? @ -No Diagnosis/symptom? @ -Flank pain Acute, or Chronic, or Acute on Chronic? @ -Acute Uncomplicated (without systemic symptoms) or Complicated (systemic symptoms)? @ -Uncomplicated Side effects of treatment? @ -No Exacerbation, Progression, or Severe Exacerbation? @ -No Poses a threat to life or bodily function? How? (Chest pain, [place], [place], pneumonia, PE, COPD, DKA, ARF, appy, cholecystitis, CVA, Diverticulitis, Homicidal, Suicidal, threat to staff... and all critical care pts) @ -No - Lab Data Result diagrams: 03/29/25 20:21 03/29/25 20:21 Lab Results 03/29/25 03/29/25 03/29/25 Range/Units 20:21 20:21 20:21 WBC 7.52 (4.50-10.00) 10*3/uL RBC 4.50 (4.10-5.20) 10*6/uL Hgb 12.8 (12.0-15.0) g/dL Hct 38.3 (37.2-46.3) % MCV 85.1 (80.0-97.0) fL MCH 28.4 (27.0-32.0) pg MCHC 33.4 (32.0-37.0) g/dL Plt Count 402 (140-440) 10*3/uL MPV 9.4 L (9.5-12.2) fL Immature Gran % (Auto) 0.1 % Neutrophils % 56.6 % Lymphocytes % 33.1 % Monocytes % 7.0 % Eosinophils % 2.7 % Basophils % 0.5 % Immature Gran # 0.01 (0.00-0.04) 10*3/uL Neutrophils # 4.25 (1.80-7.70) 10*3/uL Lymphocytes # 2.49 (0.90-5.00) 10*3/uL Monocytes # 0.53 (0.20-1.00) 10*3/uL Eosinophils # 0.20 (0.04-0.35) 10*3/uL Basophils # 0.04 (0.00-0.10) 10*3/uL Sodium 139 (137-145) mmol/L Potassium 3.8 (3.5-5.1) mmol/L Chloride 101 (98-107) mmol/L Carbon Dioxide 26 (22-30) mmol/L Anion Gap 12 mmol/L BUN 7 (7-17) mg/dL Creatinine 0.62 (0.52-1.04) mg/dL Est GFR (CKD-EPI)AfAm >90 (>60 ml/min/1.73 sqM) Est GFR (CKD-EPI)NonAf >90 (>60 ml/min/1.73 sqM) Glucose 72 L (74-99) mg/dL Calcium 10.0 (8.4-10.2) mg/dL Total Bilirubin 0.4 (0.2-1.3) mg/dL AST 48 H (14-36) U/L ALT 32 (4-34) U/L Alkaline Phosphatase 92 (38-126) U/L Total Protein 8.1 (6.3-8.2) g/dL Albumin 4.3 (3.5-5.0) g/dL Lipase 300 (23-300) U/L Urine Color Yellow Urine Appearance Clear (Clear) Urine pH 6.0 (5.0-8.0) Ur Specific [place] 1.021 (1.001-1.035) Urine Protein Negative (Negative) Urine Glucose (UA) Negative (Negative) Urine Ketones Negative (Negative) Urine Blood Negative (Negative) Urine Nitrite Negative (Negative) Urine Bilirubin Negative (Negative) Urine Urobilinogen 2.0 (<2.0) mg/dL Ur Leukocyte Esterase Negative (Negative) Disposition Clinical Impression: Flank pain Disposition: HOME SELF-CARE Condition: Stable Instructions (If sedation given, give patient instructions): Flank Pain (ED) Additional Instructions: Please return to the Emergency Department if symptoms worsen or any other concerns. Is patient prescribed a controlled substance at d/c from ED?: No Referrals: Suzanne Desouza MD [Primary Care Provider] - 1-2 days Time of Disposition: 21:23
[2025-03-29 20:26] LABS: Basophils # (A) 0.04 10*3/uL (0.00-0.10); Basophils % (A) 0.5 %; Eosinophils % (A) 2.7 %; HCT 38.3 % (37.2-46.3); HGB 12.8 g/dL (12.0-15.0); Lymphocytes # (A) 2.49 10*3/uL (0.90-5.00); Lymphocytes % (A) 33.1 %; MCH 28.4 pg (27.0-32.0); MCHC 33.4 g/dL (32.0-37.0); MCV 85.1 fL (80.0-97.0); Mean Platelet Volume 9.4 fL (9.5-12.2); Monocytes # (A) 0.53 10*3/uL (0.20-1.00); Neutrophils # (A) 4.25 10*3/uL (1.80-7.70); Neutrophils % (A) 56.6 %; Platelet Count 402 10*3/uL (140-440); RDW 13.1 % (11.5-14.5); WBC 7.52 10*3/uL (4.50-10.00)
[2025-03-29 20:28] LABS: Appearance,Urine Clear (Clear); Bilirubin,Urine Negative (Negative); Blood,Urine Negative (Negative); Color,Urine Yellow; Glucose,Urine (UA) Negative (Negative); Ketones,Urine Negative (Negative); Leukocyte Esterase,Urine Negative (Negative); Nitrite,Urine Negative (Negative); Protein,Urine Negative (Negative); Specific Gravity,Urine 1.021 (1.001-1.035)
[2025-03-29] MEDS: MORPHINE SULFATE 4 MG/ML SYRINGE IVP STA (20:28)
[2025-03-29 20:37] LABS: ALT 32 U/L (4-34); AST 48 U/L (14-36); African American GFR (CKD) >90 (>60 ml/min/1.73 sqM); Albumin 4.3 g/dL (3.5-5.0); Alkaline Phosphatase 92 U/L (38-126); Anion Gap 12 mmol/L; Blood Urea Nitrogen 7 mg/dL (7-17); Carbon Dioxide 26 mmol/L (22-30); Chloride 101 mmol/L (98-107); Glucose 72 mg/dL (74-99); Lipase 300 U/L (23-300); Non-African American GFR(CKD) >90 (>60 ml/min/1.73 sqM); Potassium 3.8 mmol/L (3.5-5.1); Sodium 139 mmol/L (137-145); Total Bilirubin 0.4 mg/dL (0.2-1.3); Total Protein 8.1 g/dL (6.3-8.2)
--- NOTE | 2025-03-29 20:59 | CT ---
EXAMINATION TYPE: CT abdomen pelvis wo con CT DLP: 532.1 mGycm, Automated exposure control for dose reduction was used. DATE OF EXAM: 03/29/2025 8:43 PM COMPARISON: Acute abdominal series 11/14/2024, gallbladder ultrasound 05/26/2022, CT abdomen and pelvis 04/28/2020 CLINICAL INDICATION:Female, 44 years old with history of l flank pain w/ radiation into abdomen; Left side flank pain. TECHNIQUE: Standard CT of the abdomen and pelvis without IV or oral contrast. Lack of IV or oral co ntrast limits evaluation of solid and hollow organ viscera. Coronal and sagittal reformats were perfo rmed. FINDINGS: LOWER CHEST: Bibasilar linear scarring and/or atelectasis. ABDOMEN LIVER: Mildly enlarged measuring 20.9 cm in CC dimension. No focal lesion within the limitations of a noncontrast exam. GALLBLADDER AND BILE DUCTS: The gallbladder is surgically absent. No biliary ductal dilatation. PANCREAS: Unremarkable noncontrast appearance. SPLEEN: Unremarkable noncontrast appearance. ADRENAL GLANDS: Unremarkable noncontrast appearance.. KIDNEYS AND URETERS: No evidence of hydronephrosis or renal calculus. No hydroureter or ureteral finn culus identified. PELVIS BLADDER: Under distended, limiting evaluation. REPRODUCTIVE: Unremarkable anteverted appearance of the uterus. ABDOMEN & PELVIS STOMACH AND BOWEL: Stomach and duodenum are unremarkable. The appendix is within normal limits. No fo finn bowel wall thickening. No evidence of bowel obstruction. No colonic diverticula. PERITONEUM: No evidence of pneumoperitoneum or free fluid. VASCULATURE: No evidence of aortic aneurysm. MUSCULOSKELETAL: No acute osseous abnormalities. Degenerative disc disease at L4-L5 with a prominent anterior osteophyte and endplate sclerosis. LYMPH NODES: No gross evidence for lymphadenopathy. SOFT TISSUE/ABDOMINAL WALL: Tiny fat filled umbilical hernia. IMPRESSION: 1. No CT evidence for acute abdominal/pelvic process within limitations of noncontrast exam. No evid ence for obstructive uropathy. 2. Mild hepatomegaly. [facility], , 03/29/2025 8:57 PM
[2025-03-29] MEDS: LIDOCAINE 4% PATCH TOPICAL ONE (21:30)
[2025-03-29 21:38] VITALS: BP 119/79; PULSE 88; TEMP 98.1
== END 2025-03-29 21:38 | disposition home or self-care (01) ==
LOC: EC 19:24
DX: R10.32 Left lower quadrant pain (principal); F17.200 Nicotine dependence, unspecified, uncomplicated; Z88.8 Allergy status to other drugs, medicaments and biological substances
CPT/HCPCS: 36415; 80053; 83690; 85025; 81003; 74176; 99284; 96374; J2270

== ENCOUNTER → 2025-04-29 | Outpatient (CLI) | payer OTHER ==
[2025-04-29 14:46] VITALS: BP 110/75; PULSE 97; RESP 19
--- NOTE | 2025-04-29 16:12 | P.PAINPG ---
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 Pt states pain level is provoked at 8 /10 in intensity, constant, localized in the R lumbar spine, predominantly axial, sharp in character without shooting pain. Pain is provoked by any activity. Pain is alleviated by PT x 6 wks which ended in Summer 2022, physician guided home exercises 4 times weekly since Summer 2022, heat, ice, medications, topical, repositioning and rest . Interventional procedures include BL TFESI L4-L5 x1 Medications include [place] 7.5/325mg #60 REVIEW OF ORGAN SYSTEMS: CONSTITUTIONAL: No fevers or chills. No recent weight loss. NEUROLOGICAL: + numbness and tingling along the distal ext remities. No seizure disorders or headaches. MUSCULOSKELETAL: + pain PSYCHIATRIC: Denies current depression or suicidal thoughts. Physical Examinations : Constitutional : Cooperative , not in acute distress . Neurologic : Cranial nerve II to XII intact. No focal neurological deficits. Psychiatric : alert & oriented x 3. Matching mood & appropriate affect. Judgment & insight intact. Musculoskeletal : Cervical Spine Motor strength in the deltoid and biceps: Normal right side. Normal Left side Motor strength biceps and the wrist extensors: Normal right side . Normal left side Motor strength in the triceps muscle: Normal right side. Normal left side Deep tendon reflexes: Normal at the biceps. Normal at Brachioradialis. Normal at triceps Vertebral body tenderness to deep palpation over Cervical facet loading test: positive bilaterally Spurling test: positive bilaterally Neck distraction test: positive bilaterally Padma sign: positive bilaterally Lumbar spine Motor strength lower extremities ,thigh and legs 5/5 Right side , 5/5 Left side Deep tendon reflexes : Normal Knee Jerk. Normal Ankle Jerk Vertebral body tenderness over L4 Acosta Test positive BL L4-L5 Lumbar facet Loading Test: positive Right / positive Left Range of motion of the lumbar spine Flexion 30 degrees, extension 10 degrees Straight Leg Raise test: Left/ Right positive at degrees Alberto test: positive right / positive left. Severe tenderness over the Sacroiliac joint on the Right / Left sides Gaenslen test: positive bilaterally Seated flexion test: positive bilateral ly. Sacral spine : Severe tenderness over the Sacroiliac joint: right side / left side Range of motion: Flexion of the lumbar spine <60 degrees Range of motion: Extension of the lumbar spine <20 degrees Gaenslen's Test positive Alberto test: positive right side / left side Thigh Thrust Test Sacral Thrust Test Imaging: CT non contrast lumbar spine from 10/30/24 reviewed Assessment/ Plan : L3-L5 radiculopathy, Sacroiliitis Recommendation of medication management. [place] 7.5/325mg #60 w RF. Stated she will discontinue narcotic agreement w Dr Patel due to the long drive and will continue any interventional procedures at this clinic. Opiate/ narcotic agreement signed 04/29/25. Use, side effects, adverse reactions, safe storage discussed. All questions answered. I have spent greater than 30 minutes on patient care today. Dr Gomez was available by phone for the evaluation of this patient. The time was used to review the medical records including relevant urine studies and Prescription history (MAPs), review of the available imaging, evaluation and examination of the patient, coordination of care with the medical staff and if applicable referring physicians, as well as creation of the medical record - Pain Location Lower Back Pharmacological Interventions: Medication PQRS Narrative: Smoking Status Current every day smoker Narcotic Agreement Date Signed 10/02/24 Blood Pressure 110/75 Pain Intensity [Lower Back] 10 Scale Used Numeric (1 - 10) Hx Alcohol Use (MH) Yes: "2-3 beers every other day" Home Medications: Ambulatory Orders Cyanocobalamin (Vitamin B-12) [Vitamin B-12] 1,000 mcg PO DAILY 02/23/21 Clobetasol Propionate [Temovate 0.05% Oint] 1 applic TOPICAL BID PRN 11/14/24 Diclofenac Sodium Gel [Voltaren 1% Gel] 2 - 4 gm TOPICAL QID PRN 11/14/24 Multivitamins, Thera [Multivitamin (formulary)] 1 tab PO DAILY 11/14/24 Pregabalin [Lyrica] 75 mg PO TID 11/14/24 cefuroxime axetiL [Ceftin] 500 mg PO BID #6 tab 11/15/24 HYDROcodone/APAP 7.5-325MG [[place] 7.5-325] 1 each PO Q4H PRN 3 Days #18 tab 04/29/25 Controlled Substance Measures - Controlled Substance Measures Is patient prescribed a controlled substance at discharge?: Yes When asked, does pt state using other controlled substances?: Yes If prescribed controlled substance>3 days was MAPS reviewed?: Yes If Rx opioid, was Start Talking consent form obtained?: Yes Was information provided regarding opioid addiction?: Yes
== END ==
LOC: PNWHC3 14:30
PROVIDERS: ATTEND Specialist
DX: M54.16 Radiculopathy, lumbar region (principal); M46.1 Sacroiliitis, not elsewhere classified; F17.200 Nicotine dependence, unspecified, uncomplicated; Z88.6 Allergy status to analgesic agent; Z88.8 Allergy status to other drugs, medicaments and biological substances
CPT/HCPCS: 99212

== ENCOUNTER 2025-06-04 08:28 | Day surgery (SDC) | payer OTHER ==
[2025-06-04 09:09] VITALS: RESP 18; TEMP 98.4
--- NOTE | 2025-06-04 10:21 | US ---
EXAMINATION TYPE: US FNA thyroid first lesion DATE OF EXAM: 06/04/2025 10:13 AM COMPARISON: None. CLINICAL INDICATION: Female, 44 years old with history of E04.1 nodule; , thyroid nodule TECHNIQUE/FINDINGS: The procedure was explained to the patient. The risks, complications, benefits and alternatives were discussed and any questions were answered. Informed consent was obtained. Patient was placed supin e on the ultrasound table and prepped and draped in the usual sterile fashion. Utilizing a 25 gauge needle, five passes were made into the requested left thyroid nodule. Patient was stable throughout the procedure. Pathology is pending. All elements of maximal barrier technique were utilized. IMPRESSION: 1. Successful ultrasound guided FNA thyroid biopsy. [facility], , 06/04/2025 10:19 AM
[2025-06-04 10:51] VITALS: BP 116/76; PULSE 72
== END 2025-06-04 10:20 | disposition home or self-care (01) ==
LOC: RADPROMAIN 08:28
PROVIDERS: ATTEND Internal Medicine
DX: E04.1 Nontoxic single thyroid nodule (principal); E55.9 Vitamin D deficiency, unspecified; Z88.6 Allergy status to analgesic agent
CPT/HCPCS: 10005; 88173; 88305

== ENCOUNTER 2025-06-06 15:42 | Emergency (ER) | payer OTHER ==
[2025-06-06 16:01] VITALS: PULSE 90; TEMP 98.5
[2025-06-06] MEDS: HYDROmorphone 1 MG/ML 1 ML SYRINGE IVP STA (16:32)
--- NOTE | 2025-06-06 16:38 | ED ---
Back Pain HPI - General Chief Complaint: Back Pain/Injury Stated Complaint: Left Abd Pain Time Seen by Provider: 06/06/25 16:00 Source: patient, RN notes reviewed Limitations: no limitations - History of Present Illness Initial Comments: 44-year-old female presents emergency room complaining left-sided rib pain. Patient states she has had issues for the last several months. Patient states prior to that she was using crutches and now is using a cane secondary to the fracture. She states any movement cough sneezing hurts her left rib region. She states she has had a prior fracture. No lower abdominal pain no urinary symptoms no change in bowel habits. Patient states has chronic back pain no change in this. She denies any bowel, bladder incontinence no saddle anesthe jonn. No lower extremity paresthesias. - Related Data Home Medications Medication Instructions Recorded Confirmed Multivitamins, Thera [Multivitamin 1 tab PO DAILY 11/14/24 06/04/25 (formulary)] Pregabalin [Lyrica] 75 mg PO TID 11/14/24 06/04/25 Ammonium Lactate Cream [Lac-Hydrin 1 applic TOPICAL BID 06/01/25 06/04/25 12% Cream] Cholecalciferol [Vitamin D3 (25 25 mcg PO DAILY 06/01/25 06/04/25 Mcg = 1000 Iu)] Ergocalciferol [Vitamin D2 (1250 1,250 mcg PO WEEKLY 06/01/25 06/04/25 Mcg = 32850 Iu)] Previous Rx's Medication Instructions Recorded HYDROcodone/APAP 7.5-325MG [[place] 1 tab PO BID PRN 30 Days #60 tab 04/29/25 7.5-325] Allergies Allergy/AdvReac Type Severity Reaction Status Date / Time ketorolac [From Toradol] Allergy Rash/Hives Verified 06/04/25 08:59 methylprednisolone Allergy Rash/Hives Verified 06/04/25 08:59 naproxen AdvReac Nausea Verified 06/04/25 08:59 Steroid (Does not know exact Allergy Rash/Hives Uncoded 06/04/25 08:59 name) Review of Systems ROS Statement: Those systems with pertinent positive or pertinent negative responses have been documented in the HPI. ROS Other: All systems not noted in ROS Statement are negative. Past Medical History Past Medical History: Asthma, Musculoskeletal Disorder, Osteoarthritis (OA) Additional Past Medical History / Comment(s): anemia, "bulging disc in neck and lower back", neuropathy. Chronic neck and back problems. 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 One prior stillbirth and one set of twins. GALLBLADDER DISORDER History of Any Multi-Drug Resistant Organisms: None Reported Past Surgical History: Section, Cholecystectomy, Orthopedic Surgery, Tubal Ligation, Uterine Ablation Additional Past Surgical History / Comment(s): Endometrial ablation in 2017. section 2. RT Ankle surgery. COLONOSCOPY 04/19/22. Back surgery and left wrist surgery, left elbow surgery Past Anesthesia/Blood Transfusion Reactions: No Reported Reaction Past Psychological History: Anxiety Smoking Status: Current every day smoker Past Alcohol Use History: Rare Past Drug Use History: None Reported - Past Family History Mother Family Medical History: Diabetes Mellitus, Deep Vein Thrombosis (DVT), Hypertension Additional Family Medical History / Comment(s): . Maternal uncle has hypertension and a maternal grandmother has diabetes. Maternal aunt had ovarian cancer, a maternal aunt also had breast cancer. General Exam Limitations: no limitations General appearance: alert, in no apparent distress Head exam: Present: atraumatic, normocephalic, normal inspection Eye exam: Present: normal appearance, PERRL, EOMI. Absent: scleral icterus, conjunctival injection, periorbital swelling ENT exam: Present: normal exam, normal oropharynx, mucous membranes moist Neck exam: Present: normal inspection, full ROM. Absent: tenderness, meningismus, lymphadenopathy Respiratory exam: Present: normal lung sounds bilaterally, chest wall tenderness. Absent: respiratory distress, wheezes, rales, rhonchi, stridor Cardiovascular Exam: Present: regular rate, normal rhythm, normal heart sounds. Absent: systolic murmur, diastolic murmur, rubs, gallop, clicks GI/Abdominal exam: Present: soft, normal bowel sounds. Absent: distended, tenderness, guarding, rebound, rigid Back exam: Absent: CVA tenderness (R), CVA tenderness (L) Neurological exam: Present: alert, oriented X3 Course Vital Signs 06/06/25 15:58 Temperature 98.5 F Pulse Rate 90 Respiratory 20 Rate Blood Pressure 123/80 O2 Sat by Pulse 99 Oximetry Medical Decision Making - Medical Decision Making Was pt. sent in by a medical professional or institution (, PA, POST OFFICE MANAGER, urgent care, hospital, or usp...) When possible be specific @ -No Did you speak to anyone other than the patient for history (EMS, parent, family, police, friend...)? What history was obtained from this source @ -No Did you review nursing and triage notes (agree or disagree)? Why? @ -I reviewed and agree with nursing and triage notes Were old charts reviewed (outside hosp., previous admission, EMS record, old EKG, old radiological studies, urgent care reports/EKG's, usp records)? Report findings @ -No old charts were reviewed Differential Diagnosis (chest pain, altered mental status, abdominal pain women, abdominal pain men, vaginal bleeding, weakness, fever, dyspnea, syncope, headache, dizziness, GI bleed, back pain, seizure, CVA, palpatations, mental health, musculoskeletal)? @ -Differential Chest Pain: Stable Angina, Unstable Angina, STEMI, NSTEMI Aortic Dissection, Pneumothorax, Musculoskeletal, Esophageal Spasm GERD, Cholecystitis, Pancreatitis, Zoster, this is not meant to be an all-inclusive list. EKG interpreted by me (3pts min.). @None X-rays interpreted by me (1pt min.). @ -X-ray rib series left with PA chest showing rib fractures no pneumothorax CT interpreted by me (1pt min.). @ -None done U/S interpreted by me (1pt. min.). @ -None done What testing was considered but not performed or refused? (CT, X-rays, U/S, labs)? Why? @ -None What meds were considered but not given or refused? Why? @ -None Did you discuss the management of the patient with other professionals (professionals i.e. , PA, POST OFFICE MANAGER, lab, RT, psych nurse, outreach and education social worker, hose cementer, teacher, aoc plans intelligence officer, case management associate)? Give summary @ -No Was smoking cessation discussed for >3mins.? @ -No Was critical care preformed (if so, how long)? @ -No Were there social determinants of health that impacted care today? How? (Homelessness, low income, unemployed, alcoholism, drug addiction, transportation, low edu. Level, literacy, decrease access to med. care, assisted, rehab)? @ -No Was there de-escalation of care discussed even if they declined (Discuss DNR or withdrawal of care, Hospice)? DNR status @ -No What co-morbidities impacted this encounter? (DM, HTN, Smoking, COPD, CAD, Cancer, CVA, ARF, Chemo, Hep., AIDS, mental health diagnosis, sleep apnea, morbid obesity)? @ -None Was patient admitted / discharged? Hospital course, mention meds given and route, prescriptions, significant lab abnormalities, going to OR and other pertinent info. @ -Discharge patient has nondisplaced rib fractures, patient injury is old will follow-up with pain management return parameters cussed. Undiagnosed new problem with uncertain prognosis? @ -No Drug Therapy requiring intensive monitoring for toxicity (Heparin, Nitro, Insulin, Cardizem)? @ -No Were any procedures done? @ -No Diagnosis/symptom? @ -Rib fractures left Acute, or Chronic, or Acute on Chronic? @ -Acute Uncomplicated (without systemic symptoms) or Complicated (systemic symptoms)? @ -Complicated Side effects of treatment? @ -No Exacerbation, Progression, or Severe Exacerbation? @ -No Poses a threat to life or bodily function? How? (Chest pain, [place], [place], pneumonia, PE, COPD, DKA, ARF, appy, cholecystitis, CVA, Diverticulitis, Homicidal, Suicidal, threat to staff... and all critical care pts) @ -No Disposition Clinical Impression: Left rib fracture Disposition: HOME SELF-CARE Condition: Stable Instructions (If sedation given, give patient instructions): Rib Fracture (ED) Additional Instructions: Please return to the Emergency Department if symptoms worsen or any other concerns. Is patient prescribed a controlled substance at d/c from ED?: No Referrals: Suzanne Desouza MD [Primary Care Provider] - 1-2 days Time of Disposition: 17:38
[2025-06-06] MEDS: ORPHENADRINE 30 MG/ML 2 ML VIAL IM STA (16:40)
--- NOTE | 2025-06-06 16:58 | XR ---
EXAMINATION TYPE: XR ribs LT w pa chest xray DATE OF EXAM: 06/06/2025 4:52 PM COMPARISON: None CLINICAL INDICATION: Female, 44 years old with history of pain; [facility], pain TECHNIQUE: XR ribs LT w pa chest xray; Frontal and oblique views of the ribs with frontal chest radio graph. FINDINGS: Minimally displaced fractures involving the left lateral sixth, seventh and eighth ribs. No evidence of fracture. Overall, the lungs are clear. The cardiac silhouette is normal in size. The remaining osseous structures are intact. IMPRESSION: 1. No acute cardiopulmonary process. 2. Minimally displaced fractures involving the left lateral sixth, seventh and eighth ribs. [facility], , 06/06/2025 4:55 PM
[2025-06-06] MEDS: oxyCODONE-APAP 5-325MG 1 EACH TAB PO STA (17:47)
[2025-06-06 17:54] VITALS: BP 135/90; RESP 18
== END 2025-06-06 17:55 | disposition home or self-care (01) ==
LOC: EC 15:42
DX: S22.32XA Fracture of one rib, left side, initial encounter for closed fracture (principal); F17.200 Nicotine dependence, unspecified, uncomplicated; Z88.6 Allergy status to analgesic agent; Z88.8 Allergy status to other drugs, medicaments and biological substances; X58.XXXA Exposure to other specified factors, initial encounter
CPT/HCPCS: 71101; 99283; 96374; 96372; J2360; J1171

== ENCOUNTER → 2025-06-08 | Outpatient (CLI) | payer OTHER ==
--- NOTE | 2025-06-08 08:07 | MM ---
Reason for Exam: Screening (asymptomatic). Last screening mammogram was performed 12 month(s) ago. Patient History: Menarche at age 8. First Full-Term at age 21. Premenopausal. Patient has history of breast feeding. Maternal aunt had breast cancer under age 50. Maternal aunt had breast cancer at or over age 50. Maternal aunt had breast cancer. Maternal aunt had ovarian cancer under age 50. Risk Values: Trinity 5 year model risk: 0.8%. NCI Lifetime model risk: 9.4%. Prior Study Comparison: 04/26/2022 Bilateral MG diagnostic mammo w CAD [facility], [facility]. 05/23/2023 Bilateral MG screening mammo w CAD, [facility]. 06/03/2024 Bilateral MG 3D screening mammo w/cad, [facility]. Tissue Density: There are scattered areas of fibroglandular density. Findings: Analyzed By CAD. Right breast: There is no suspicious group of microcalcifications or new suspicious mass. Left breast: There is no suspicious group of microcalcifications or new suspicious mass. Overall Assessment: Negative, BI-RAD 1 Management: Screening Mammogram of both breasts in [address] [facility] will attempt to contact patient to return for supplemental views and ultrasound if indicated. Patient should continue monthly self-breast exams. A clinical breast exam by your physician is recommended on an annual basis. This exam should not preclude additional follow-up of suspicious palpable abnormalities. Note on Trinity scores and lifetime risk: 1. A Trinity score greater than 3% is considered moderate risk. If this is the case, consider specialist referral to assess eligibility for a risk reducing agent. 2. If overall lifetime risk for the development of breast cancer is 20% or higher, the patient may qualify for future screening with alternating mammogram and breast MRI. [facility], , 06/08/2025 8:01 AM. Electronically signed and approved by: Eugene Way DO
== END | disposition home or self-care (01) ==
LOC: RADMAMWWP 07:30
PROVIDERS: ATTEND Family Medicine
DX: Z12.31 Encounter for screening mammogram for malignant neoplasm of breast (principal); R92.323 Mammographic fibroglandular density, bilateral breasts; Z80.3 Family history of malignant neoplasm of breast
CPT/HCPCS: 77067

== ENCOUNTER → 2025-06-09 | Outpatient (CLI) | payer OTHER ==
[2025-06-09 15:29] VITALS: BP 121/80; PULSE 110; RESP 16; TEMP 98.3
--- NOTE | 2025-06-09 16:00 | P.HPOB ---
History of Present Illness H&P Date: 06/09/25 Chief Complaint: The patient is here for her routine gynecologic exam. This is a 44-year-old -2-0-3(1 stillborn with 1 set of twins) and LMP of 2020. The patient had a vulvar cyst removed last year which showed lichen simplex chronicus. She states triamcinolone cream as needed is helpful and has controlled the irritation. She has had hot flashes which started about 1 year after her endometrial ablation. She has been experiencing multiple mysterious bone fractures in her ribs and foot with no explanation. She states she is going for a bone density test this week as ordered by her PCP. She denies any trauma or abuse as an explanation for bone fractures. Review of Systems The patient has gained 16 pounds over the last year. She denies respiratory, cardiac, or G.I. problems. Musculoskeletal: Bone pain related to multiple spont aneous fractures. Past Medical History Past Medical History: Asthma, Musculoskeletal Disorder, Osteoarthritis (OA) Additional Past Medical History / Comment(s): anemia, "bulging disc in neck and lower back", neuropathy. Chronic neck and back problems. 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 One prior stillbirth and one set of twins. History of Any Multi-Drug Resistant Organisms: None Reported Past Surgical History: Section, Cholecystectomy, Orthopedic Surgery, Tubal Ligation, Uterine Ablation Additional Past Surgical History / Comment(s): Endometrial ablation in 2016. section 2. RT Ankle surgery. COLONOSCOPY 04/19/22. Back surgery and left wrist surgery, left elbow surgery. Benign thyroid biopsy. Past Anesthesia/Blood Transfusion Reactions: No Reported Reaction Past Psychological History: Anxiety Smoking Status: Current every day smoker (About 7 cigarettes/day.) Past Alcohol Use History: None Reported Additional Past Alcohol Use History / Comment(s): SMOKES 1/2 PPD SINCE AGE 16. She states she is drinking less alcohol since April 2022 because of GI problems. She previously would drink up to fifth in a day. 11/15/24 Patient states " Its been a few months since my last drink" Past Drug Use History: None Reported Additional History: She has been since 02/17/2024. She is disabled. - Past Family History Mother Family Medical History: Diabetes Mellitus, Deep Vein Thrombosis (DVT), H ypertension Additional Family Medical History / Comment(s): . Maternal uncle has hypertension and a maternal grandmother has diabetes. Maternal aunt had ovarian cancer, a maternal aunt also had breast cancer. Medications and Allergies Home Medications Medication Instructions Recorded Confirmed Type Multivitamins, Thera [Multivitamin 1 tab PO DAILY 11/14/24 06/04/25 History (formulary)] Pregabalin [Lyrica] 75 mg PO TID 11/14/24 06/04/25 History HYDROcodone/APAP 7.5-325MG [[place] 1 tab PO BID PRN 30 Days #60 tab 04/29/25 06/04/25 Rx 7.5-325] Ammonium Lactate Cream [Lac-Hydrin 1 applic TOPICAL BID 06/01/25 06/04/25 History 12% Cream] Cholecalciferol [Vitamin D3 (25 25 mcg PO DAILY 06/01/25 06/04/25 History Mcg = 1000 Iu)] Ergocalciferol [Vitamin D2 (1250 1,250 mcg PO WEEKLY 06/01/25 06/04/25 History Mcg = 94091 Iu)] Butalbital/Acetaminophen 1 each PO DAILY 06/09/25 06/09/25 History [Butalbital/Acetaminophen 50-300 MG] timoloL [timoloL 0.5% Ophth Soln] 5 ml OPHTHALMIC BID 06/09/25 06/09/25 History Allergies Allergy/AdvReac Type Severity Reaction Status Date / Time ketorolac [From Toradol] Allergy Rash/Hives Verified 06/09/25 15:13 methylprednisolone Allergy Rash/Hives Verified 06/09/25 15:13 naproxen AdvReac Nausea Verified 06/09/25 15:13 Steroid (Does not know exact Allergy Rash/Hives Uncoded 06/09/25 15:13 name) Exam Vital Signs Temp Pulse Resp BP Pulse Ox 06/09/25 15:20 98.3 F 110 H 16 121/80 95 Intake and Output 06/09/25 06/09/25 06/09/25 06:59 14:59 22:59 Other: Weight 76.204 kg Height was not able to be obtained today since she could not stand on the scale with her foot boot. Weight 168 pounds, BMI 25.5(based on past ht). This is a well-developed well-nourished lack female who is alert and oriented times 3 in no acute distress at rest. She seems to have pain when she tries to move. She states this is related to her multiple rib and foot fractures. HEENT: Within normal limits. NECK: Supple without mass or thyromegaly. CHEST AND LUNGS: Clear to auscultation. HEART: Regular rate and rhythm. BREASTS: Are without mass or discharge. AXILLARY EXAM: Negative for adenopathy. BACK: Negative for CVA tenderness. ABDOMEN: Soft, nontender, without palpable masses. PELVIC EXAM: Normal external genitalia. Cervix and vagina appear normal. There is no unusual discharge. There is no evidence of prolapse. The uterus is midposition, nongravid size and nontender. There are no palpable adnexal masses or tenderness. RECTAL EXAM: Rectovaginal exam is negative for mass or tenderness and is negative for occult blood. EXTREMITIES: Nontender. IMPRESSION: 1. 44-year-old postmenopausal female with normal gynecologic exam. 2. History of multiple bone fractures with no known cause such as injury or abuse. 3. Intermittent chronic vulvar irritation secondary to lichen simplex chronicus. Controlled with Kenalog cream. PLAN: 1. Pap smear was deferred since she had a negative Pap smear cotest on 05/23/2023. 2. Self breast awareness was discussed with the patient. We have also discussed symptoms associated with inflammatory breast cancer. 3. Screening mammogram was done on 06/08/2025 and was benign. The patient is aware of the results. 4. Osteoporosis prevention was discussed. I have stressed the importance of adequate calcium, vitamin D and regular exercise. Recommended amounts of calcium and vitamin D were also discussed. She states she is scheduled for a bone density test through her PCP this upcoming week. She will try to get me a copy of this. 5. Kenalog 0.1% cream twice daily as needed for vulvar irritation. The electronic prescription will be sent to [facility] on . 6. She was advised to return in one year for her annual well woman exam and as needed.
== END ==
LOC: WWCWWP 14:43
PROVIDERS: ATTEND Obstetrics & Gynecology
DX: Z01.419 Encounter for gynecological examination (general) (routine) without abnormal findings (principal); Z78.0 Asymptomatic menopausal state; F17.200 Nicotine dependence, unspecified, uncomplicated; L28.0 Lichen simplex chronicus; Z88.8 Allergy status to other drugs, medicaments and biological substances; Z87.81 Personal history of (healed) traumatic fracture

== ENCOUNTER → 2025-06-15 | Outpatient (CLI) | payer OTHER ==
[2025-06-15 08:14] VITALS: BP 114/79; PULSE 99; RESP 17
--- NOTE | 2025-06-15 13:14 | P.PAINPG ---
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 Pt states pain level is provoked at 8 /10 in intensity, constant, localized in the R lumbar spine, predominantly axial, sharp in character without shooting pain. Pain is provoked by any activity. Pain is alleviated by PT x 6 wks which ended in Summer 2022, physician guided home exercises 4 times weekly since Summer 2022, heat, ice, medications, topical, repositioning and rest . Had L 6th/ 7th/ 8th rib fractures 1 mo ago, wearing a L boot and states she is safe at home. She is scheduled for a bone density test in a few weeks. Interventional procedures include BL TFESI L4-L5 x1 Medications include [place] 7.5/325mg #60 REVIEW OF ORGAN SYSTEMS: CONSTITUTIONAL: No fevers or chills. No recent weight loss. NEUROLOGICAL: + numbness and tingling along the distal extremities. No seizure disorders or headaches. MUSCULOSKELETAL: + pain PSYCHIATRIC: Denies current depression or suicidal thoughts. Physical Examinations : Constitutional : Cooperative , not in acute distress . Neurologic : Cranial nerve II to XII intact. No focal neurological deficits. Psychiatric : alert & oriented x 3. Matching mood & appropriate affect. Judgment & insight intact. Musculoskeletal : Cervical Spine Motor strength in the deltoid and biceps: Normal right side. Normal Left side Motor strength biceps and the wrist extensors: Normal right side . Normal left side Motor strength in the triceps muscle: Normal right side. Normal left side Deep tendon reflexes: Normal at the biceps. Normal at Brachioradialis. Normal at triceps Vertebral body tenderness to deep palpation over Cervical facet loading test: positive bilaterally Spurling test: positive bilaterally Neck distraction test: positive bilaterally Padma sign: positive bilaterally Lumbar spine Motor strength lower extremities ,thigh and legs 5/5 Right side , 5/5 Left side Deep tendon reflexes : Normal Knee Jerk. Normal Ankle Jerk Vertebral body tenderness over L4 Acosta Test positive BL L4-L5 Lumbar facet Loading Test: positive Right / positive Left Range of motion of the lumbar spine Flexion 30 degrees, extension 10 degrees Straight Leg Raise test: Left/ Right positive at degrees Alberto test: positive right / positive left. Severe tenderness over the Sacroiliac joint on the Right / Left sides Gaenslen test: positive bilaterally Seated flexion test: positive bilaterally. Sacral spine : Severe tenderness over the Sacroiliac joint: right side / left side Range of motion: Flexion of the lumbar spine <60 degrees Range of motion: Extension of the lumbar spine <20 degrees Gaenslen's Test positive Alberto test: positive right side / left side Thigh Thrust Test Sacral Thrust Test Imaging: CT non contrast lumbar spine from 10/30/24 reviewed Assessment/ Plan : L3-L5 radiculopathy, Sacroiliitis Recommendation of medication management. [place] 10/325mg #90 w RF. She will continue any interventional procedures at this clinic. UDS 06/15/25. Opiate/ narcotic agreement signed 04/29/25. Use, side effects, adverse reactions, safe storage discussed. All questions answered. I have spent greater than 30 minutes on patient care today. Dr Gomez was available by phone for the evaluation of this patient. The time was used to review the medical records including relevant urine studies and Prescription history (MAPs), review of the available imaging, evaluation and examination of the patient, coordination of care with the medical staff and if applicable referring physicians, as well as creation of the medical record - Pain Location Left Hip Non-Pharmacological Interventions: Heat, Ice Pharmacological Interventions: Medication PQRS Narrative: Smoking Status Current every day smoker Narcotic Agreement Date Signed 10/02/24 Blood Pressure 114/79 Pain Intensity [Left Hip] 10 Scale Used Numeric (1 - 10) Hx Alcohol Use (MH) Yes: "2-3 beers every other day" Home Medications: Ambulatory Orders Multivitamins, Thera [Multivitamin (formulary)] 1 tab PO DAILY 11/14/24 Pregabalin [Lyrica] 75 mg PO TID 11/14/24 HYDROcodone/APAP 7.5-325MG [[place] 7.5-325] 1 tab PO BID PRN 30 Days #60 tab 10/13 Ammonium Lactate Cream [Lac-Hydrin 12% Cream] 1 applic TOPICAL BID 06/01/25 Cholecalciferol [Vitamin D3 (25 Mcg = 1000 Iu)] 25 mcg PO DAILY 06/01/25 Ergocalciferol [Vitamin D2 (1250 Mcg = 18596 Iu)] 1,250 mcg PO WEEKLY 06/01/25 Butalbital/Acetaminophen [Butalbital/Acetaminophen 50-300 MG] 1 each PO DAILY 06/09/25 Triamcinolone 0.1% Cream [Kenalog 0.1% Cream] 1 applicatio TOPICAL BID PRN #30 gm 06/09/25 timoloL [timoloL 0.5% Ophth Soln] 5 ml OPHTHALMIC BID 06/09/25 Controlled Substance Measures - Controlled Substance Measures Is patient prescribed a controlled substance at discharge?: Yes When asked, does pt state using other controlled substances?: Yes If prescribed controlled substance>3 days was MAPS reviewed?: Yes If Rx opioid, was Start Talking consent form obtained?: Yes Was information provided regarding opioid addiction?: Yes
== END ==
LOC: PNWHC3 07:51
PROVIDERS: ATTEND Specialist
DX: M47.26 Other spondylosis with radiculopathy, lumbar region (principal); M46.1 Sacroiliitis, not elsewhere classified; F17.200 Nicotine dependence, unspecified, uncomplicated; Z88.6 Allergy status to analgesic agent; Z88.8 Allergy status to other drugs, medicaments and biological substances
CPT/HCPCS: 80307; G0463; 99212